=== PATIENT | male | born 1965 | race Caucasian/White ===

== ENCOUNTER → 2020-08-29 08:21 | Outpatient (BNVA) | payer OTHER, SELFPAY | PROVIDERS: PCP Internal Medicine; Visit Provider Internal Medicine | DX: I48.0 Paroxysmal atrial fibrillation (principal); I48.92 Unspecified atrial flutter; I10 Essential (primary) hypertension; Z79.899 Other long term (current) drug therapy | CPT/HCPCS: 93005 ==

== ENCOUNTER → 2021-09-20 09:32 | Outpatient (BNVA) | payer OTHER, SELFPAY | PROVIDERS: PCP Internal Medicine; Referring Provider Internal Medicine; Visit Provider Internal Medicine ==

== ENCOUNTER 2022-06-03 08:41 | Outpatient (REF) | payer OTHER, SELFPAY ==
--- NOTE | ~2022-06-03 | XR_ITS ---
EXAMINATION: XR HAND, RIGHT CLINICAL INFORMATION: Contusion and pain COMPARISON: None TECHNIQUE: PA, lateral, and oblique views of the right hand. FINDINGS: The bones and soft tissues are normal. No fracture. Alignment is anatomic. Joint spaces are maintained. No erosions or soft tissue calcifications. XR/XR hand RT min 3V IMPRESSION: Normal right hand.
== END 2022-06-03 08:42 | disposition home or self-care (01) ==
LOC: HO.HMGCX 08:41
PROVIDERS: PCP Internal Medicine; Visit Provider Internal Medicine
DX: S60.00XA Contusion of unspecified finger without damage to nail, initial encounter (principal); M79.641 Pain in right hand; X58.XXXA Exposure to other specified factors, initial encounter; Y93.9 Activity, unspecified; Y92.9 Unspecified place or not applicable; Y99.9 Unspecified external cause status
CPT/HCPCS: 73130

== ENCOUNTER → 2022-09-23 09:31 | Outpatient (BNVA) | payer OTHER, SELFPAY | PROVIDERS: PCP Internal Medicine; Referring Provider Internal Medicine; Visit Provider Internal Medicine | DX: I48.0 Paroxysmal atrial fibrillation (principal); Z79.899 Other long term (current) drug therapy | CPT/HCPCS: 93005 ==

== ENCOUNTER 2022-09-23 16:56 | Emergency (ER) | payer OTHER, SELFPAY ==
--- NOTE | ~2022-09-23 | CT_ITS ---
EXAMINATION: CT BRAIN AND CT CERVICAL SPINE WITHOUT CONTRAST. CLINICAL INFORMATION: COMPARISON: None TECHNIQUE: Axial 5 mm thin and reformatted 2 mm thin sagittal and coronal images of brain were obtained. Subsequently axial 3 mm thin and reformatted 2 mm thin sagittal and coronal images of cervical spine were obtained. DLP [id number] examination was performed using dose optimization technique as appropriate, variously including the following: Automated exposure control Adjustment of MA and/or KV according to patient size(this includes techniques or standardized protocols for targeted exams where dose is matched to indication/reason for exam; extremities or head. Use of iterative reconstruction techniques. FINDINGS: The exam is limited secondary to patient motion. Brain: There is no acute intra-axial, extra-axial bleed, masses or midline shift. There is no acute infarction in evolution. There is no edema. The palumbo to white matter differentiation is maintained normal. The lateral ventricles are symmetrical in size and configuration without enlargement. Bone windows reveal no calvarial abnormality. There is no scalp soft tissue abnormality. The paranasal sinuses are well-aerated and clear. Cervical spine: There is reversal of cervical lordosis. Vertebral heights and alignment is normal. There is loss of C5-C6 and C6-C7 disc heights with minimal ventral and posterior spondylosis is noted. The craniovertebral junction and C1-C2 alignment is normal. There is no visible acute fracture, dislocation or subluxation seen. The prevertebral soft tissues are normal. The central trachea and the bronchi widely patent. No abnormal size neck lymph nodes seen. Visualized salivary glands and thyroid lobes are symmetrical. The lung apices are clear except for 3 mm nodule right lung apex. CT/CT cervical spine wo IV con IMPRESSION: No acute intracranial process seen. Reversal of cervical lordosis likely cyst spasm. There are degenerative disc changes C5-C6 and C6-C7 disc levels with ventral and posterior spondylosis. No acute fracture or lytic process seen.
--- NOTE | ~2022-09-23 | XR_ITS ---
EXAMINATION: XR CHEST CLINICAL INFORMATION: Chest pain COMPARISON: 06/04/2016 TECHNIQUE: Frontal view of the chest was obtained. FINDINGS: No significant abnormality is noted involving the heart, lungs, mediastinum, bony thorax or soft tissues. XR/XR chest 1V IMPRESSION: Unremarkable examination.
[2022-09-23 17:05] VITALS: BP 153/75; BP 160/90; PULSE 72; PULSE 82; RESP 18; TEMP 36.7; O2SAT 95; O2SAT 98; BMI 37.0
--- NOTE | 2022-09-23 17:26 | ECG_ITS ---
Test Reason : CP Blood Pressure : / mmHG Vent. Rate : 076 BPM Atrial Rate : 076 BPM P-R Int : 178 ms QRS Dur : 116 ms QT Int : 404 ms P-R-T Axes : 080 096 074 degrees QTc Int : 454 ms Normal sinus rhythm Rightward axis Borderline ECG When compared with ECG of 05-JUN-2016 11:52, No significant change was found Referred By: Manju Mendoza Electronically Signed By:Rogerio Jj
[2022-09-23 18:03] LABS: MANUAL DIFF FLAG NO
[2022-09-23 18:09] LABS: Basophils Percent Auto 0.3 % (0-2); Eosinophils Absolute Auto 0.1 X10*3/uL (0.0-0.4); Eosinophils Percent Auto 1.4 % (0-4); Hematocrit 48.8 % (42.0-52.0); Hemoglobin 16.6 g/dl (14.0-18.0); Imm Gran Abs Auto 0.03 X10*3/uL (0.00-0.03); Imm Gran Pct Auto 0.4 % (0.0-0.4); Lymphocytes Absolute Auto 1.9 X10*3/uL (1.2-4.9); Mean Platelet Volume 9.2 fL (9.4-12.4); Monocytes Absolute Auto 0.7 X10*3/uL (0.1-1.2); Monocytes Percent Auto 9.3 % (2-11); Neutrophils Absolute Auto 4.3 x10*3/uL (2.0-8.3); Neutrophils Percent Auto 61.6 % (45-73); Platelet Count 197 X10*3/uL (160-400); Red Blood Count 5.19 X10*6/uL (4.60-5.80); Red Cell Distribution Width 12.7 % (11.0-16.0)
[2022-09-23 18:23] LABS: Ethanol 203 mg/dL
[2022-09-23 18:25] LABS: Anion Gap 16 (12-20); Blood Urea Nitrogen 11 mg/dL (9-16); Calcium 9.1 mg/dL (8.4-10.2); Carbon Dioxide 29 mmol/L (22-29); Chloride 101 mmol/L (96-108); Creatinine Clr Calc Pharmacy 121.3; Estimated Glomerular Filt Rate > 60; Glucose Random 104 mg/dL (60-115); Potassium 4.2 mmol/L (3.3-5.1); Sodium 142 mmol/L (135-145)
[2022-09-23 18:33] LABS: Troponin-I High Sensitivity < 3.5 ng/L (<3.5-35.0)
--- NOTE | 2022-09-23 19:04 | ED.SYNCOPE ---
HPI - Syncope General Chief Complaint: ETOH/Substance Use Stated Complaint: ETOH INTOX,CPD ON BOARD FOR PRECAUTION PER EMS Time Seen by Provider: 09/23/22 17:04 History of Present Illness HPI narrative: Patient is a 57-year-old male with a history of hypertension history of paroxysmal AFib history of being on flecainide for the AFib. Patient not on blood thinners. Compliant with his dull tires on. Also history of hypercholesterolemia. Patient claims he got off his overnight shift. Had a few drinks. Subsequently drove to a sandwich shop. At the same sharp patient slumped over. EMS was contacted. Question there was trauma. Patient was sent to the emergency department for further evaluation. Patient has no complaints. Denies any chest pain or diaphoresis. No fever no chills. Claims he is very tired from work. Related Data Previous Rx's Medication Instructions Recorded albuterol sulfate 90 mcg/actuation 2 puff inhalation Q6H PRN 10/17/21 aerosol inhaler bronchospasm #8.5 grams diltiazem HCl 360 mg capsule,24 360 mg PO DAILY #90 caps 10/17/21 hr,extended release (Tiadylt ER) lisinopril 10 mg tablet 10 mg PO DAILY #90 tabs 10/18/21 flecainide 100 mg tablet 50 mg PO BID 90 days #90 tabs 01/15/22 Allergies Allergy/AdvReac Type Severity Reaction Status Date / Time No Known Allergies Allergy Verified 09/23/22 09:48 [No Known Allergies*] Review of Systems Review of Systems: Positive EtOH positive possible syncopal episode Yes all other systems are reviewed and are negative PMFSH Past Medical History Attestation statement: The following information was validated with the patient. 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 Mother No problems noted. Social History Social History Housing: Apartment Alcohol intake: current Alcohol intake frequency: 0-2 drinks per day Alcohol type: beer Patient Tobacco Use Status: Current everyday Tobacco user Tobacco use type: Cigarette Cigarettes Per Day: 10 Years Smoked: since age 17 e-Cigarette/Vaping Use: Never Used Second Hand Smoke Exposure: No Advance Directives: No Advance Directives Information Provided: No service: No Current occupational status: employed Cognitive needs: No Hearing needs: No Vision needs: No Physical Exam Vital Signs: Vital Signs: Last Vital Signs Temp 98.0 F 09/23/22 17:05 Pulse 72 09/23/22 17:05 Resp 18 09/23/22 17:05 BP 153/75 H 09/23/22 17:05 Pulse Ox 98 09/23/22 17:05 O2 Del Method 09/23/22 17:05 Oxygen Flow Rate 2 09/23/22 17:05 BMI result Body Mass Index 37.0 Appearance: Alert. Oriented X3. No acute distress. Eyes: Pupils equal, round and reactive to light. ENT: Pharynx normal. Neck: Normal inspection. Neck supple. No lymph nodes noted. No crepitus CVS: Normal heart rate and rhythm. Pulses normal. Normal S1 and S2 Respiratory: No respiratory distress. Breath sounds normal. No Wheezing. No rales Abdomen: Soft and nontender. No rigidity. No distention. good BS x4 Skin: Skin warm and dry. Normal skin color. Normal skin turgor. Extremities: No lower extremity edema. Neurovascular intact to all extremities. No Lacerations. No Rash Neuro: Oriented X 3. No motor deficit. No sensory deficit. Moving all extermities. No slurred speech Medications Administered Discontinued Medications Generic Name Dose Route Start Last Admin Trade Name Freq PRN Reason Stop Dose Admin Ondansetron HCl 4 mg 09/23/22 18:51 09/23/22 18:53 Ondansetron Odt 4 Mg Tab.Rapdis TRANSLINGU 09/23/22 18:52 Not Given ONCE ONE Medical Decision Making Medical Decision Making MDM Narrative: patient well appearing no acute distress. Neurologically intact. Sugar was over 100 no evidence for hypoglycemia. I personally interpreted patient's EKG it showed a sinus rhythm heart rate is 75 PA QRS QT within normal limits there is no acute ST segment elevation noted. Patient neurologically intact. NIH stroke scale was 0. There is a question of trauma. A CT scan of the head and C-spine was done. I would personally reviewed the CT scan of the head there is no gross evidence of bleeding. Patient did admit to drinking alcohol. His alcohol level was 200. question of that is because of patient's episode of being out. Patient's troponin was negative. Electrolytes are otherwise unremarkable. Chest x-ray showed no pneumonia no pneumothorax. Patient's hemoglobin is baseline. No evidence for GI bleed. Discussed with patient the need for close follow-up. Need to stop drinking. Drinking and driving can be extremely dangerous. Is specially with very little sleep. 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 Offered detox but patient refused at this time. He is in stable condition with discharge home. Differential Diagnosis hypoglycemia, alcohol abuse, syncope, electrolyte disturbance, arrhythmia Admission/Observation Consideration of admission/observation: Escalation of care including admission/observation considered given the elevated alcohol likely the cause of patient's symptoms will not need to be admitted for further evaluation Lab Data MDM Lab Attestation statement: I reviewed the patient's lab results. 09/23/22 17:59 09/23/22 17:59 Labs: Lab Results 09/23/22 09/23/22 09/23/22 Range/Units 17:59 17:59 17:59 WBC 7.0 (4.8-10.8) X10*3/uL RBC 5.19 (4.60-5.80) X10*6/uL Hgb 16.6 (14.0-18.0) g/dl Hct 48.8 (42.0-52.0) % MCV 94.0 (80.0-98.0) fL MCH 32.0 (27.0-33.0) pg MCHC 34.0 (31.0-36.0) g/dl RDW 12.7 (11.0-16.0) % Plt Count 197 (160-400) X10*3/uL MPV 9.2 L (9.4-12.4) fL Immature Gran % (Auto) 0.4 (0.0-0.4) % Neut % (Auto) 61.6 (45-73) % Lymph % (Auto) 27.0 (20-40) % [place] % (Auto) 9.3 (2-11) % Eos % (Auto) 1.4 (0-4) % Baso % (Auto) 0.3 (0-2) % Lymph # (Auto) 1.9 (1.2-4.9) X10*3/uL [place] # (Auto) 0.7 (0.1-1.2) X10*3/uL Eos # (Auto) 0.1 (0.0-0.4) X10*3/uL Baso # (Auto) 0.0 (0.0-0.2) X10*3/uL Abs Immat Gran (auto) 0.03 (0.00-0.03) X10*3/uL Absolute Neuts (auto) 4.3 (2.0-8.3) x10*3/uL Absolute Nucleated RBC 0.000 (0.0-0.012) X10*3/uL Nucleated RBC % (auto) 0.0 (0.0-0.2) /100WBC Sodium 142 (135-145) mmol/L Potassium 4.2 (3.3-5.1) mmol/L Chloride 101 (96-108) mmol/L Carbon Dioxide 29 (22-29) mmol/L Anion Gap 16 (12-20) BUN 11 (9-16) mg/dL Creatinine 0.85 (0.5-1.4) mg/dL Estim Creat Clear Calc 121.3 Estimated GFR > 60 Random Glucose 104 (60-115) mg/dL Calcium 9.1 (8.4-10.2) mg/dL Troponin I High Sens < 3.5 (<3.5-35.0) ng/L Ethyl Alcohol mg/dL 09/23/22 Range/Units 17:59 WBC (4.8-10.8) X10*3/uL RBC (4.60-5.80) X10*6/uL Hgb (14.0-18.0) g/dl Hct (42.0-52.0) % MCV (80.0-98.0) fL MCH (27.0-33.0) pg MCHC (31.0-36.0) g/dl RDW (11.0-16.0) % Plt Count (160-400) X10*3/uL MPV (9.4-12.4) fL Immature Gran % (Auto) (0.0-0.4) % Neut % (Auto) (45-73) % Lymph % (Auto) (20-40) % [place] % (Auto) (2-11) % Eos % (Auto) (0-4) % Baso % (Auto) (0-2) % Lymph # (Auto) (1.2-4.9) X10*3/uL [place] # (Auto) (0.1-1.2) X10*3/uL Eos # (Auto) (0.0-0.4) X10*3/uL Baso # (Auto) (0.0-0.2) X10*3/uL Abs Immat Gran (auto) (0.00-0.03) X10*3/uL Absolute Neuts (auto) (2.0-8.3) x10*3/uL Absolute Nucleated RBC (0.0-0.012) X10*3/uL Nucleated RBC % (auto) (0.0-0.2) /100WBC Sodium (135-145) mmol/L Potassium (3.3-5.1) mmol/L Chloride (96-108) mmol/L Carbon Dioxide (22-29) mmol/L Anion Gap (12-20) BUN (9-16) mg/dL Creatinine (0.5-1.4) mg/dL Estim Creat Clear Calc Estimated GFR Random Glucose (60-115) mg/dL Calcium (8.4-10.2) mg/dL Troponin I High Sens (<3.5-35.0) ng/L Ethyl Alcohol 203 mg/dL Independent Interpretation I performed an independent interpretation of an: EKG Interpretation: sinus rhythm heart rate is 75 PA QRS QT within normal limits there is no acute ST segment elevation. Radiology Impression Discussion of test interpretation with radiology: I have reviewed the radiologist's reading. Independent Historian Clinical information obtained from an independent historian. History obtained from or confirmed by: Spouse and Parent External Record Review External record reviewed: Inpatient record Chronic Conditions Patient?s care impacted by: Hypertension Social Determinants Patient?s care significantly limited by Social Determinants of Health including: Alcoholism and drug addiction in family Discharge Plan Discharge Clinical Impression: Alcohol intoxication, Syncope Patient Disposition: Home, Self-Care Instructions: Syncope (ED), Abuse of Alcohol (ED), Alcohol Intoxication (ED) Additional Instructions: Please do not drink and drive. Drinking and driving is dangerous for you and for others. Prescriptions: No Action lisinopril 10 mg tablet 10 mg PO DAILY Qty: 90 8RF flecainide 100 mg tablet 50 mg PO BID 90 Days Qty: 90 3RF albuterol sulfate 90 mcg/actuation HFA aerosol inhaler 2 puff inhalation Q6H PRN (Reason: bronchospasm) Qty: 8.5 8RF diltiazem HCl [Tiadylt ER] 360 mg capsule,extended release 24 hr 360 mg PO DAILY Qty: 90 3RF Referrals: Physician,Unknown J [Primary Care Provider] - ( Please follow-up with your doctor on an outpatient basis.) Rogerio Jj MD [Physician] - Interventions: [place]-Suicide Risk Severity Scale Last Done: 09/23/22 18:02
--- NOTE | 2022-09-23 19:05 | MHC.RECOVSUP ---
? Reason for consult Recovery Support o Current location: ED18 o Identified substance use concern: Alcohol - Support ? Intervention: o Community resources provided o Harm reduction discussion ? Plan: o Patient awaiting crisis evaluation o Patient to follow up with [facility] after discharge ? Additional information: met with Patient and we talk recovery and where to go if he changes his mind and want help..
[2022-09-23 19:42] VITALS: BP 112/56; PULSE 84; RESP 18; TEMP 36.6; O2SAT 94
== END 2022-09-23 19:57 | disposition home or self-care (01) ==
PROVIDERS: Emergency Provider Emergency Medicine Emergency Medical Services
DX: R55 Syncope and collapse (principal); R51.9 Headache, unspecified; M54.2 Cervicalgia; R07.89 Other chest pain; F10.129 Alcohol abuse with intoxication, unspecified; Y90.7 Blood alcohol level of 200-239 mg/100 ml; Z79.899 Other long term (current) drug therapy
CPT/HCPCS: 36415; 70450; 71045; 72125; 80048; 82077; 84484; 85025; 93005; 99284

== ENCOUNTER 2023-03-17 09:52 | Outpatient (AMB) | payer OTHER, SELFPAY ==
--- NOTE | 2023-03-17 10:40 | AM.OFFVISNUR ---
Intake Intake Visit Reasons: EKG Intake Note: Pt here for f/up EKG. H/O afib. Feels good. No complaints. Taking all meds as directed. Field Identification Specialist Required: No Accompanied by: Self / Same As Patient Allergies No Known Allergies [No Known Allergies*] Allergy (Verified 09/23/22 09:48) Medication List - Last Reconciled 03/17/23 by Priscilla Tenorio, RN albuterol sulfate 90 mcg/actuation 2 puffs inhalation Q6H PRN diltiazem HCl ER (Tiadylt ER) 360 mg PO DAILY flecainide 50 mg (1/2 x 100 mg) PO BID 90 days lisinopril 10 mg PO DAILY Followed by:: Dr. Salgado Nursing Note EKG completed. EKG auto-reading sinus rhythm at 61/bpm. EKG on Dr. Asif's desk/uploaded for review and signature. Office Procedures EKG 14007-[id number], Complete Coding Level of Care Code Est Pt Level 1 (36892) Diagnoses CPT Codes EKG - CPT: 76097-Unirmoxstaelhlsec, Complete ([id number]) Time Spent (min) 15
== END 2023-03-17 10:40 | disposition home or self-care (01) ==
PROVIDERS: Visit Provider Internal Medicine
DX: I48.92 Unspecified atrial flutter (principal)
CPT/HCPCS: 93010

== ENCOUNTER → 2023-03-17 09:52 | Outpatient (BNVA) | payer OTHER, SELFPAY | PROVIDERS: Visit Provider Internal Medicine | DX: I48.91 Unspecified atrial fibrillation (principal) | CPT/HCPCS: 93005 ==

== ENCOUNTER 2023-05-01 11:50 | Outpatient (AMB) | payer OTHER, SELFPAY ==
--- NOTE | 2023-05-01 12:14 | AM.OFFWIN_ITS ---
Intake Vital Signs 05/01/23 12:15 Weight 278 lb BP 106/58 L Blood Pressure Location Rt brachial Position Sitting Pulse 72 Pulse Source Pulse Oximeter Pulse Oximetry (%) 97 Oxygen Delivery Method Room Air Intake Visit Reasons: EP, Left ear pain Intake Note: Patient here for left ear pain/possible ear infection which has been bothersome for about 1-2 weeks. Patient Tobacco Use Status: Current everyday Tobacco user Allergies No Known Allergies [No Known Allergies*] Allergy (Verified 05/01/23 12:15) Do you need a note to return to daycare/school/sports/work: No HPI HPI Comments History of Present Illness Details 57-year-old male presents with ear popping sensation in the left ear. Patient by might have an ear infection. 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 Mother No problems noted. Social History Housing: Apartment Alcohol intake: current Alcohol intake frequency: 0-2 drinks per day Alcohol type: beer Patient Tobacco Use Status: Current everyday Tobacco user Tobacco use type: Cigarette Cigarettes Per Day: 10 Years Smoked: since age 17 e-Cigarette/Vaping Use: Never Used Second Hand Smoke Exposure: No service: No Current occupational status: employed Cognitive needs: No Hearing needs: No Vision needs: No Review of Systems Const All systems reviewed & are unremarkable except as noted in HPI and below ENT Details: ear popping and fullness Physical Exam Vital Signs: Last Vital Signs Pulse 72 05/01/23 12:15 BP 106/58 L 05/01/23 12:15 Pulse Ox 97 05/01/23 12:15 Oxygen Delivery Method Room Air 05/01/23 12:15 HEENT Other: bilateral your effusions Assessment & Plan Assessment & Plan (1) Acute middle ear effusion: Code(s): H65.199 - Other acute nonsuppurative otitis media, unspecified ear Plan exam consistent with bilateral your effusions. Recommend antihistamine treatment. No evidence of infection. Discharge instructions, follow up and treatment are discussed with patient in my usual fashion. Alternatives in treatment are also discussed. The patient will return for worsening symptoms or as needed. Advised that any labs/imaging ordered will be followed up on and contact made if further treatment needed. Counseled that patient's condition may require further evaluation and/or treatment. Symptoms of concern for worsening disorder discussed in detail in my customary manner. Patient does verbalize understanding of the plan, there are no apparent barriers to communication. The patient is given the opportunity to ask questions and have them answered to his/her satisfaction Coding Level of Care Code Est Pt Level 2 (65054) Diagnoses Acute middle ear effusion H65.199
[2023-05-01 12:15] VITALS: BP 106/58; PULSE 72; O2SAT 97
== END 2023-05-01 12:48 | disposition home or self-care (01) ==
PROVIDERS: PCP Internal Medicine; Visit Provider Physician Assistant
DX: H65.192 Other acute nonsuppurative otitis media, left ear (principal)
CPT/HCPCS: 99212

== ENCOUNTER 2023-07-01 08:36 | Outpatient (AMB) | payer OTHER, SELFPAY ==
--- NOTE | 2023-07-01 09:04 | MHC.OFFWIV ---
Intake Vital Signs 07/01/23 09:05 Height 5 ft 10 in Weight 255 lb 4 oz BMI 36.6 BP 120/58 L Blood Pressure Location Rt brachial Position Sitting Pulse 72 Pulse Source Pulse Oximeter Temp 98.4 F Temp Source Oral Pulse Oximetry (%) 82 L Oxygen Delivery Method Room Air Intake Visit Reasons: EP, cough, congestion (masked) Intake Note: pt is here for congestion cough wheezing and body aches for the past 5 days Patient Tobacco Use Status: Current everyday Tobacco user Allergies No Known Allergies [No Known Allergies*] Allergy (Verified 07/01/23 09:36) Medication List - Last Reconciled 07/01/23 by Emil Fajardo MD albuterol sulfate 90 mcg/actuation 2 puffs inhalation Q6H PRN diltiazem HCl ER (Tiadylt ER) 360 mg PO DAILY flecainide 50 mg (1/2 x 100 mg) PO BID 90 days lisinopril 10 mg PO DAILY Do you need a note to return to daycare/school/sports/work: No HPI EP, cough, congestion (masked) HPI Details 58-year-old male presents to the office for a sick visit. For the past 2 3 days, patient is complaining of wheezing, running nose and headaches. His has the similar illness. Has not tested for COVID. Low-grade fevers. Smokes a pack a day. 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 Mother No problems noted. Social History Housing: Apartment Alcohol intake: current Alcohol intake frequency: 0-2 drinks per day Alcohol type: beer Patient Tobacco Use Status: Current everyday Tobacco user Tobacco use type: Cigarette Cigarettes Per Day: 10 Years Smoked: since age 17 e-Cigarette/Vaping Use: Never Used Second Hand Smoke Exposure: No service: No Current occupational status: employed Cognitive needs: No Hearing needs: No Vision needs: No Physical Exam Vital Signs: Last Vital Signs Temp 98.4 F 07/01/23 09:05 Pulse 72 07/01/23 09:05 BP 120/58 L 07/01/23 09:05 Pulse Ox 82 L 07/01/23 09:05 Oxygen Delivery Method Room Air 07/01/23 09:05 BMI result Body Mass Index 36.6 Const General: cooperative and healthy appearing Nutritional Appearance: well nourished Orientation/consciousness: patient oriented x3 Limitations: no limitations HEENT Head: Yes normal to inspection Eyes General: appearance normal, both eyes and all related structures Neck Neck: Yes normal visual inspection Chest Chest palpation & inspection: normal palpation of entire chest wall Resp Other: Bilateral wheezing. Effort & Inspection: normal respiratory effort Neuro General: patient oriented x3 Assessment & Plan Assessment & Plan (1) Acute bronchitis: Code(s): J20.9 - Acute bronchitis, unspecified Plan: Chest x-ray images were reviewed by me. No infiltrate seen. Patient tested positive for COVID on the rapid antigen testing. Paxlovid treatment initiated. Prednisone and albuterol added to the regimen. Note for work given. Orders: Orders AMB Nebulizer Treatment Today J20.9 - Acute bronchitis, unspecified XR chest 2V Today R05.9 - Cough, unspecified SARS-CoV2/FLU/RSV Today R09.89 - Other specified symptoms and signs involving the circulatory and respiratory systems BinaxNOW Covid-19 Ag Today J06.9 - Acute upper respiratory infection, unspecified Medications: New prednisone 60 mg (3 x 20 mg) PO DAILY 9 tabs 0RF albuterol sulfate 2.5 mg (3 mL) inhalation ONCE 3 mL 0RF J20.9 - Acute bronchitis, unspecified nirmatrelvir-ritonavir 300 mg (150 mg x 2)-100 mg (Paxlovid) take TWO 150 mg tablets of nirmatrelvir with ONE 100 mg tablet of ritonavir twice daily for 5 days PO 30 tabs 0RF Refilled albuterol sulfate 90 mcg/actuation 2 puffs inhalation Q6H PRN 8.5 grams 8RF bronchospasm Coding Level of Care Code Est Pt Level 4 (80123) Diagnoses Acute bronchitis J20.9
[2023-07-01 09:05] VITALS: BP 120/58; PULSE 72; TEMP 36.9; O2SAT 82; BMI 36.6
== END 2023-07-01 10:53 | disposition home or self-care (01) ==
PROVIDERS: PCP Internal Medicine; Visit Provider Internal Medicine
DX: J20.9 Acute bronchitis, unspecified (principal)
CPT/HCPCS: 99214

== ENCOUNTER 2023-07-01 09:48 | Outpatient (REF) | payer OTHER, SELFPAY ==
[2023-07-01 12:52] LABS: Influenza A PCR NEGATIVE (Negative); Influenza B PCR NEGATIVE (Negative); Resp Syncy Virus RNA Qual PCR NEGATIVE (Negative); SARS COV2 PCR INHOUSE POSITIVE (Negative)
== END 2023-07-01 09:49 | disposition home or self-care (01) ==
LOC: HO.LNP 09:48
PROVIDERS: Visit Provider Internal Medicine
DX: Z11.52 Encounter for screening for COVID-19 (principal); Z20.822 Contact with and (suspected) exposure to COVID-19; R09.89 Other specified symptoms and signs involving the circulatory and respiratory systems
CPT/HCPCS: 0241U

== ENCOUNTER 2023-07-01 09:50 | Outpatient (REF) | payer OTHER, SELFPAY ==
--- NOTE | ~2023-07-01 | XR_ITS ---
EXAMINATION: XR CHEST CLINICAL INFORMATION: Cough, unspecified COMPARISON: Chest 09/23/2022, 09/28/2010 TECHNIQUE: 2 views of the chest were obtained. FINDINGS: The lungs are well expanded. Mild opacity in the lateral right lung base may represent atelectasis and/or less likely pneumonia. No significant abnormality is noted involving the heart, mediastinum, bony thorax or soft tissues. XR/XR chest 2V IMPRESSION: Mild opacity in the lateral right lung base may represent atelectasis and/or less likely pneumonia.
[2023-07-01 10:19] LABS: Binax Internal Control QC Valid; Binax Now Covid-19 Ag Positive (Negative); Binax Performed by: HO.BONILM
== END 2023-07-01 09:51 | disposition home or self-care (01) ==
LOC: HO.HMGCX 09:50
PROVIDERS: PCP Internal Medicine; Visit Provider Internal Medicine
DX: Z11.52 Encounter for screening for COVID-19 (principal); R05.9 Cough, unspecified; J06.9 Acute upper respiratory infection, unspecified
CPT/HCPCS: 71046; 87811

== ENCOUNTER 2023-09-23 10:00 | Outpatient (AMB) | payer OTHER, SELFPAY ==
--- NOTE | 2023-09-23 10:04 | A.OFFVIS_ITS ---
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 In the past, underwent cardioversion for the same. Maintained on a small dose of flecainide and diltiazem. Has not had any recurrences. Was on Xarelto in the past but then developed melena and then it was stopped. Due to low thromboembolic risk, not on any anticoagulation and also he has had no recurrence all. Overall, he states he is feeling fine. No cardiac symptoms. Compliant with medications according to him. 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 Mother No problems noted. Social History Housing: Apartment Alcohol intake: current Alcohol intake frequency: 0-2 drinks per day Alcohol type: beer Patient Tobacco Use Status: Current everyday Tobacco user Tobacco use type: Cigarette Cigarettes Per Day: 10 Years Smoked: since age 17 e-Cigarette/Vaping Use: Never Used Second Hand Smoke Exposure: No service: No Current occupational status: employed Cognitive needs: No Hearing needs: No Vision needs: No Review of Systems Const Denies weakness ENT Denies dizziness Card Denies chest pain, Denies chest pain with activity, Denies syncope, Denies rapid heart rate, Denies pedal edema, Denies edema, Denies leg edema, Denies lightheadedness, Denies palpitations, Denies dyspnea, Denies dyspnea on exertion and Denies orthopnea Resp Denies cough, Denies dyspnea and Denies dyspnea on exertion GI Denies hematochezia and Denies change in stool character Musc Denies abnormal gait, Denies muscle cramps, Denies muscle weakness, Denies numbness, Denies radiating pain into limb and Denies tingling Neuro Denies abnormal gait, Denies dizziness, Denies syncope, Denies numbness, Denies tingling and Denies weakness Endo Denies palpitations Physical Exam Vital Signs: Last Vital Signs Pulse 74 09/23/23 10:05 BP 132/60 09/23/23 10:05 BMI result Body Mass Index 37.0 Const General: comfortable and no acute distress Orientation/consciousness: patient oriented x3 HEENT Other: Unremarkable Head: Yes normal to inspection Neck Neck: Yes normal visual inspection Chest Chest palpation & inspection: normal inspection of the chest Resp Auscultation: wheezes and diminished lung sounds Cardio Palpation: normal PMI Heart sounds: S1 normal heart sound present, S2 normal heart sound present, no gallops, no murmurs and no rubs GI Palpation (GI): Soft to palpation Back/Spine/Pelvis Other: unremarkable Skin General skin exam: no rashes or lesions noted Neuro General: patient oriented x3 Extrem General: Yes normal to inspection Psych Mental Status: mental status grossly normal Office Procedures EKG Details: EKG with sinus rhythm at 76/Min; rightward axis; no significant ST-T changes; [place] [id number], Complete Assessment & Plan Assessment & Plan (1) PAF (paroxysmal atrial fibrillation): Code(s): I48.0 - Paroxysmal atrial fibrillation (2) Paroxysmal atrial flutter: Code(s): I48.92 - Unspecified atrial flutter (3) nursing home current use of antiarrhythmic drug: Code(s): Z79.899 - Other long term care phlebotomist (current) drug therapy (4) Essential hypertension: Code(s): I10 - Essential (primary) hypertension (5) Smoking: Code(s): F17.200 - Nicotine dependence, unspecified, uncomplicated Plan Continue flecainide/diltiazem without changes. Due to low thromboembolic risk as well as no recurrent episodes, not on anticoagulation. Coronary CT in the past without any significant CAD. Last echocardiogram 2017-LVEF 60-65%; no wall motion abnormalities and otherwise unremarkable. With regard hypertension, continue lisinopril. On exam, he does have wheezing likely related to smoking. Again discussed about smoking cessation. About alcohol excess. Discussed. To come for EKG in 6 months. 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
[2023-09-23 10:05] VITALS: BP 132/60; PULSE 74; BMI 37.0
== END 2023-09-23 10:35 | disposition home or self-care (01) ==
PROVIDERS: Visit Provider Internal Medicine
DX: I48.0 Paroxysmal atrial fibrillation (principal); I48.92 Unspecified atrial flutter; Z79.899 Other long term (current) drug therapy; I10 Essential (primary) hypertension; F17.200 Nicotine dependence, unspecified, uncomplicated
CPT/HCPCS: 93010; 99214

== ENCOUNTER → 2023-09-23 10:00 | Outpatient (BNVA) | payer OTHER, SELFPAY | PROVIDERS: Visit Provider Internal Medicine | DX: I48.0 Paroxysmal atrial fibrillation (principal); I48.92 Unspecified atrial flutter; I10 Essential (primary) hypertension; F17.210 Nicotine dependence, cigarettes, uncomplicated; Z79.899 Other long term (current) drug therapy | CPT/HCPCS: 93005 ==

== ENCOUNTER → 2024-02-25 08:56 | Outpatient (BNVA) | payer SELFPAY | PROVIDERS: PCP Internal Medicine; Visit Provider Internal Medicine ==

== ENCOUNTER 2024-03-19 10:23 | Outpatient (AMB) | payer OTHER, SELFPAY ==
[2024-03-19 10:25] VITALS: BP 124/70; PULSE 65; O2SAT 95; BMI 37.4
--- NOTE | 2024-03-19 10:25 | A.OFFPC_ITS ---
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 Accompanied by: Self / Same As Patient Allergies No Known Allergies [No Known Allergies*] Allergy (Verified 03/19/24 10:25) Medication List - Last Reconciled 03/19/24 by Atul Ferreira MD albuterol sulfate 90 mcg/actuation 2 puffs inhalation Q6H PRN diltiazem HCl ER (Tiadylt ER) 360 mg PO DAILY flecainide 50 mg (1/2 x 100 mg) PO BID 90 days lisinopril 10 mg PO DAILY Tobacco use date assessed: 03/19/24 Dental Screening Dental Screen Date: 03/19/24 Did you have a dental visit in the last 12 months?: No Did you have a dental problem in the last 6 months where you did not have access to dental care?: No Was dental information given to patient?: Patient has dentist HPI Rectal bleeding HPI Details bright red rectal bleeding for a day; some perianal itching PFSH Medical History 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 Mother No problems noted. Social History Housing: Apartment Alcohol intake: current Alcohol intake frequency: 0-2 drinks per day Alcohol type: beer Patient Tobacco Use Status: Current everyday Tobacco user Tobacco use type: Cigarette Cigarettes Per Day: 10 Years Smoked: since age 17 e-Cigarette/Vaping Use: Never Used Second Hand Smoke Exposure: No service: No Current occupational status: employed Cognitive needs: No Hearing needs: No Vision needs: No Questionnaire PHQ-9 Over the last 2 weeks, how often have you been bothered by any of the following problems? 1. Little interest or pleasure in doing things: several days 2. Feeling down, depressed, or hopeless: nearly every day 3. Trouble falling or staying asleep, or sleeping too much: more than half the days 4. Feeling tired or having little energy: more than half the days 5. Poor appetite or overeating: not at all 6. Feeling bad about yourself - or that you are a failure or have let yourself or your family down: nearly every day 7. Trouble concentrating on things, such as reading the newspaper or watching television: not at all 8. Moving or speaking so slowly that other people could have noticed. Or the opposite - being so fidgety or restless that you have been moving around a lot more than usual: not at all 9. Thoughts that you would be better off or of hurting yourself in some way: not at all Total score: 11 Source: Developed by Drs. Thor Rivera, Winsome Moss, Chad French and colleagues, with an educational cyndi from [employer] Thrive Questionnaire Date Thrive assessed: 03/19/24 I am a: Patient What is your living situation today?: I have a steady place to live Within the past 12 months, did the food you bought not last and you didn't have the money to get more?: Never true Within the past 12 months, did you worry whether your food would run out before you got money to buy more?: Never true Do you have trouble paying for medicines?: No Do you have trouble getting transportation to medical appointments?: No Do you have trouble paying your heating and electricity bill?: No Do you have trouble taking care of your child, family member or friend?: No Do you have trouble with day-to-day activities such as bathing, preparing meals, shopping, managing finances, etc.?: No Are you currently unemployed and looking for a job?: No Are you interested in more education?: No Please select the resources that you would like help with: None THRIVE Score: 0 AUDIT C Alcohol Use Questionnaire (AUDIT-C) 1. How often do you have a drink containing alcohol?: 2-3 times a week 2. How many drinks containing alcohol do you have on a typical day when you are drinking?: 3 or 4 3. How often do you have six or more drinks on one occasion?: Never Total Score: 4 Score Reviewed/Action Taken: Yes ANUSHKA-7 AMB Questionnaire ANUSHKA-7 Date ANUSHKA - 7 assessed: 03/19/24 Feeling nervous, anxious, or on edge: 0 = Not at all Not being able to stop or control worryin = Not at all Worrying too much about different things: 0 = Not at all Trouble relaxin = Not at all Being so restless that it is hard to sit still: 0 = Not at all Becoming easily annoyed or irritable: 0 = Not at all Feeling afraid as if something awful might happen: 0 = Not at all Total ANUSHKA-7 score (0-4 normal; 5-9 mild; 10-14 moderate; 15-21 severe): 0 Source: Developed by Drs. Thor Rivera, Winsome Moss, Chad French and colleagues, with an educational cyndi from [employer]). Review of Systems Const Denies chills, Denies headache(s) and Denies weight loss ENT Denies headache(s) Card Denies chest pain, Denies syncope, Denies irregular heart rhythm and Denies dyspnea Resp Denies chest congestion, Denies cough and Denies dyspnea GI Denies abdominal pain, Denies change in stool character, Denies nausea and Denies vomiting Musc Denies deformity and Denies joint swelling Neuro Denies syncope and Denies headache(s) Physical exam (Primary Care) Vital Signs: Last Vital Signs Pulse 65 03/19/24 10:25 BP 124/70 03/19/24 10:25 Pulse Ox 95 03/19/24 10:25 Oxygen Delivery Method Room Air 03/19/24 10:25 BMI result Body Mass Index 37.4 Tobacco/Smoking Status: Tobacco use Status Tobacco use date assessed 03/19/24 03/19/24 10:26 Patient Tobacco Use Status Current everyday Tobacco 03/19/24 10:26 Tobacco use type Cigarette 03/19/24 10:26 e-Cigarette/Vaping Use Never Used 03/19/24 10:26 PHQ-9: PHQ-9 Score PHQ-9: Total score 11 03/19/24 10:47 Thrive Assessment: Date of Thrive Assessment Date Thrive assessed 03/19/24 03/19/24 10:26 Const General: cooperative, comfortable, no acute distress and alert Neck Neck: Yes no lymphadenopathy Thyroid: Thyroid normal Resp Effort & Inspection: normal respiratory effort Auscultation: clear to auscultation bilaterally Percussion: percussion normal Cardio Jugular venous distension: no JVD Palpation: normal PMI Rate: regular rate Rhythm: regular rhythm Heart sounds: S1 normal heart sound present and S2 normal heart sound present GI Inspection: Yes normal to inspection Palpation (GI): No hepatosplenomegaly present Skin General skin exam: no rashes or lesions noted Extrem General: Yes no clubbing, cyanosis or edema Assessment and Plan Assessment & Plan (1) Rectal bleeding: Code(s): K62.5 - Hemorrhage of anus and rectum Plan: ref surgery Orders: Referrals General Surgery Referral K62.5 - Hemorrhage of anus and rectum Medications: Refilled albuterol sulfate 90 mcg/actuation 2 puffs inhalation Q6H PRN 8.5 grams 8RF bronchospasm Coding Level of Care Code Est Pt Level 3 (90793) Diagnoses Rectal bleeding K62.5 Additional Codes PHQ-9 - 91356 - PHQ-9 Billing: ([id number])
== END 2024-03-19 10:48 | disposition home or self-care (01) ==
PROVIDERS: PCP Internal Medicine; Visit Provider Internal Medicine
DX: K62.5 Hemorrhage of anus and rectum (principal)
CPT/HCPCS: 99213

== ENCOUNTER 2024-04-05 09:02 | Outpatient (AMB) | payer OTHER, SELFPAY ==
--- NOTE | 2024-04-05 09:31 | MHC.OFFWIV ---
Intake Vital Signs 04/05/24 09:32 Height 5 ft 10 in Weight 274 lb BMI 39.3 BP 122/70 Blood Pressure Location Lt brachial Position Sitting Pulse 64 Pulse Source Pulse Oximeter Pulse Oximetry (%) 90 L Oxygen Delivery Method Room Air Intake Visit Reasons: Swollen Feet Intake Note: Patient here for bilat feet swelling that has been present for 2 weeks, pt mentioned he has pain in the back on the calve Patient Tobacco Use Status: Current everyday Tobacco user Allergies No Known Allergies [No Known Allergies*] Allergy (Verified 04/05/24 09:33) Do you need a note to return to daycare/school/sports/work: No HPI HPI Comments History of Present Illness Details Patient is a 58-year-old male complaining of swelling of both of his legs, the right side is worse than the left. He is also stating he has calf pain on the right side. He states he just took a 9 hour flight to and from [facility] and this is when his symptoms started. He States he is on Flecinaide but is not on a blood thinner for his afib. He states the pain in his leg is worse when he flexes his knee. He denies any shortness of breath or trouble breathing. He does state he has been a lifelong smoker but does not have a formal diagnosis of COPD. He has not done anything to try to make it better. He does not think he has ever had an ultrasound of his heart but does not think he has any heart failure diagnosed. [facility] Medical History Essential hypertension [facility] current use of antiarrhythmic drug PAF (paroxysmal atrial fibrillation) Paroxysmal atrial flutter Surgical History History of cardioversion (~2015) History of colonoscopy (~09/26/15) Family History Father No problems noted. Mother No problems noted. Social History Housing: Apartment Alcohol intake: current Alcohol intake frequency: 0-2 drinks per day Alcohol type: beer Patient Tobacco Use Status: Current everyday Tobacco user Tobacco use type: Cigarette Cigarettes Per Day: 10 Years Smoked: since age 17 e-Cigarette/Vaping Use: Never Used Second Hand Smoke Exposure: No service: No Current occupational status: employed Cognitive needs: No Hearing needs: No Vision needs: No Review of Systems Const All systems reviewed & are unremarkable except as noted in HPI and below Physical Exam Vital Signs: Last Vital Signs Pulse 64 04/05/24 09:32 BP 122/70 04/05/24 09:32 Pulse Ox 90 L 04/05/24 09:32 Oxygen Delivery Method Room Air 04/05/24 09:32 BMI result Body Mass Index 39.3 Const General: cooperative, healthy appearing, comfortable and no acute distress Orientation/consciousness: patient oriented x3 Limitations: no limitations HEENT Head: Yes normal to inspection Resp Effort & Inspection: normal respiratory effort and able to speak in complete sentences Neuro General: patient oriented x3 Extrem Right lower extremity: lower leg Details: tenderness Location: of the posterior calf and pitting edema Details: 2+; no erythema, no abrasions, no lacerations, no ecchymosis, no deformity and no unusual warmth Left lower extremity: lower leg Details: pitting edema Details: 1+; no erythema, no tenderness, no abrasions, no lacerations, no ecchymosis and no unusual warmth Assessment & Plan Assessment & Plan (1) Pain and swelling of left lower leg: Code(s): M79.662 - Pain in left lower leg; M79.89 - Other specified soft tissue disorders Plan: We will get lower extremity bilateral venous ultrasound to rule out DVT, vital signs are stable however oxygen saturation was 90%, upon recheck was 92%. Ultrasound of lower extremities was negative for DVT, however it was positive for Patrick's cyst behind the right knee. We called the patient to let him know how to treat the Patrick's cyst. I sent a message to patient's PCP for further workup for his lower extremity pitting edema. (2) Pain and swelling of right lower leg: Code(s): M79.661 - Pain in right lower leg; M79.89 - Other specified soft tissue disorders Plan: See above Plan See above Orders: Orders US venous duplex LE BI Today M79.661 - Pain in right lower leg, M79.662 - Pain in left lower leg, M79.89 - Other specified soft tissue disorders Coding Level of Care Code Est Pt Level 4 (34505) Diagnoses Pain and swelling of left lower leg M79.662; M79.89 Pain and swelling of right lower leg M79.661; M79.89
[2024-04-05 09:32] VITALS: BP 122/70; PULSE 64; O2SAT 90; BMI 39.3
== END 2024-04-05 11:26 | disposition home or self-care (01) ==
PROVIDERS: PCP Internal Medicine; Visit Provider Physician Assistant
DX: M79.662 Pain in left lower leg (principal); M79.89 Other specified soft tissue disorders; M79.661 Pain in right lower leg
CPT/HCPCS: 99214

== ENCOUNTER 2024-04-05 10:58 | Outpatient (REF) | payer OTHER, SELFPAY ==
--- NOTE | ~2024-04-05 | US_ITS ---
EXAMINATION: US VENOUS ULTRASOUND WITH DOPPLER LOWER EXTREMITY, BILATERAL CLINICAL INFORMATION: Bilateral lower leg pain. COMPARISON: None available. TECHNIQUE: Ultrasound of the deep veins is performed from the hip to the calf with compression sonography and color and pulse Doppler assessment. Spectral analysis with color-flow imaging is performed. FINDINGS: RIGHT: There is normal venous compression and respiratory variation and augmented flow. The visualized common femoral vein, superficial femoral vein, profunda femoral vein, popliteal vein, and the trifurcation region shows no evidence of deep venous thrombosis. Fluid collection in the right popliteal fossa measures 6.2 x 1.8 x 1.7 cm. No internal color Doppler flow. Right inguinal lymph node measures 3.7 x 1.0 x 3.3 cm. LEFT: There is normal venous compression and respiratory variation and augmented flow. The visualized common femoral vein, superficial femoral vein, profunda femoral vein, popliteal vein, and the trifurcation region shows no evidence of deep venous thrombosis. If the patient's symptoms persist, followup ultrasound in 5 days 7 days might be of value to exclude proximal propagation from a non-visualized calf vein. US/US venous duplex LE BI IMPRESSION: No DVT demonstrated in bilateral lower extremities. Enlarged right inguinal lymph node measuring 2.7 x 1.0 x 3.3 cm. Right popliteal fossa fluid collection measures 6.2 x 1.8 x 1.7 cm.
== END 2024-04-05 10:59 | disposition home or self-care (01) ==
LOC: HO.HMGCX 10:58
PROVIDERS: PCP Internal Medicine; Visit Provider Physician Assistant
DX: M79.662 Pain in left lower leg (principal); M79.661 Pain in right lower leg; M79.89 Other specified soft tissue disorders
CPT/HCPCS: 93970

== ENCOUNTER 2024-04-06 12:55 | Outpatient (AMB) | payer OTHER, SELFPAY ==
[2024-04-06 12:56] VITALS: BP 136/72; PULSE 78; O2SAT 89; BMI 38.7
--- NOTE | 2024-04-06 12:56 | MHC.PC.OV ---
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 Mother No problems noted. Social History Housing: Apartment Alcohol intake: current Alcohol intake frequency: 0-2 drinks per day Alcohol type: beer Patient Tobacco Use Status: Current everyday Tobacco user Tobacco use type: Cigarette Cigarettes Per Day: 10 Years Smoked: since age 17 e-Cigarette/Vaping Use: Never Used Second Hand Smoke Exposure: No service: No Current occupational status: employed Cognitive needs: No Hearing needs: No Vision needs: No Questionnaire PHQ-9 Over the last 2 weeks, how often have you been bothered by any of the following problems? 1. Little interest or pleasure in doing things: several days 2. Feeling down, depressed, or hopeless: nearly every day 3. Trouble falling or staying asleep, or sleeping too much: more than half the days 4. Feeling tired or having little energy: more than half the days 5. Poor appetite or overeating: not at all 6. Feeling bad about yourself - or that you are a failure or have let yourself or your family down: nearly every day 7. Trouble concentrating on things, such as reading the newspaper or watching television: not at all 8. Moving or speaking so slowly that other people could have noticed. Or the opposite - being so fidgety or restless that you have been moving around a lot more than usual: not at all 9. Thoughts that you would be better off or of hurting yourself in some way: not at all Total score: 11 Source: Developed by Drs. Thor Rivera, Winsome Moss, Chad French and colleagues, with an educational cyndi from [employer]. Thrive Questionnaire Date Thrive assessed: 03/19/24 AUDIT C Alcohol Use Questionnaire (AUDIT-C) 1. How often do you have a drink containing alcohol?: 2-3 times a week 2. How many drinks containing alcohol do you have on a typical day when you are drinking?: 3 or 4 3. How often do you have six or more drinks on one occasion?: Never Total Score: 4 Score Reviewed/Action Taken: Yes ANUSHKA-7 AMB Questionnaire ANUSHKA-7 Date ANUSHKA - 7 assessed: 03/19/24 Source: Developed by Drs. Thor Rivera, Winsome Moss, Chad French and colleagues, with an educational cyndi from [employer]. Review of Systems Const Denies chills, Denies headache(s) and Denies weight loss ENT Denies headache(s) Card Denies chest pain, Denies syncope and Denies irregular heart rhythm Resp Denies chest congestion GI Denies abdominal pain, Denies change in stool character, Denies nausea and Denies vomiting Musc Denies deformity and Denies joint swelling Neuro Denies syncope and Denies headache(s) Physical exam (Primary Care) Vital Signs: Last Vital Signs Pulse 78 04/06/24 12:56 BP 136/72 04/06/24 12:56 Pulse Ox 89 L 04/06/24 12:56 Oxygen Delivery Method Room Air 04/06/24 12:56 BMI result Body Mass Index 38.7 Tobacco/Smoking Status: Tobacco use Status Tobacco use date assessed 03/19/24 04/06/24 13:02 Patient Tobacco Use Status Current everyday Tobacco 04/06/24 13:02 Tobacco use type Cigarette 04/06/24 13:02 e-Cigarette/Vaping Use Never Used 04/06/24 13:02 PHQ-9: PHQ-9 Score PHQ-9: Total score 11 04/06/24 13:02 Thrive Assessment: Date of Thrive Assessment Date Thrive assessed 03/19/24 04/06/24 13:02 Const General: cooperative, comfortable, no acute distress and alert Neck Neck: Yes no lymphadenopathy Thyroid: Thyroid normal Resp Effort & Inspection: normal respiratory effort Auscultation: clear to auscultation bilaterally Percussion: percussion normal Cardio Jugular venous distension: no JVD Palpation: normal PMI Rate: regular rate Rhythm: regular rhythm Heart sounds: S1 normal heart sound present and S2 normal heart sound present GI Inspection: Yes normal to inspection Palpation (GI): No hepatosplenomegaly present Skin General skin exam: no rashes or lesions noted Extrem General: Yes no clubbing, cyanosis or edema Assessment and Plan Assessment & Plan (1) Dyspnea: Code(s): R06.00 - Dyspnea, unspecified Plan: labs ekg and cxr ordered; f/u 1 week Orders: Orders ECG 12 lead EKG 04/06/24 R07.9 - Chest pain, unspecified XR chest 2V 04/06/24 R06.00 - Dyspnea, unspecified Complete Blood Count Auto Diff 04/06/24 Z13.0 - Encounter for screening for diseases of the blood and blood-forming organs and certain disorders involving the immune mechanism Basic Metabolic Panel 04/06/24 R06.00 - Dyspnea, unspecified Medications: New furosemide 20 mg PO QAM 20 tabs 0RF Coding Level of Care Code Est Pt Level 3 (44672) Diagnoses Dyspnea R06.00 Additional Codes PHQ-9 - 49862 - PHQ-9 Billing: ([id number])
== END 2024-04-06 13:13 | disposition home or self-care (01) ==
PROVIDERS: PCP Internal Medicine; Visit Provider Internal Medicine
DX: R06.00 Dyspnea, unspecified (principal)
CPT/HCPCS: 99213

== ENCOUNTER 2024-04-06 13:22 | Outpatient (REF) | payer OTHER, SELFPAY ==
--- NOTE | ~2024-04-06 | XR_ITS ---
EXAMINATION: XR CHEST CLINICAL INFORMATION: tightness and shortness of breath for a couple of weeks COMPARISON: 07/01/2023 TECHNIQUE: 2 views of the chest were obtained. FINDINGS: There is no gross pneumothorax. Heart size is normal. No pleural effusion. No new focal consolidation. XR/XR chest 2V IMPRESSION: No new focal consolidation. Electronically signed by: Katie Delacruz MD 05/05/2024 05:38 AM EDT
--- NOTE | 2024-04-06 13:27 | ECG_ITS ---
Test Reason : cp Blood Pressure : / mmHG Vent. Rate : 074 BPM Atrial Rate : 074 BPM P-R Int : 194 ms QRS Dur : 112 ms QT Int : 396 ms P-R-T Axes : 069 094 071 degrees QTc Int : 439 ms Normal sinus rhythm Rightward axis Borderline ECG When compared with ECG of 23-SEP-2022 18:18, No significant change was found Referred By: Atul Ferreira Electronically Signed By:PEEWEE HUTCHINS
[2024-04-06 13:42] LABS: MANUAL DIFF FLAG NO
[2024-04-06 14:22] LABS: Basophils Percent Auto 0.2 % (0-2); Eosinophils Absolute Auto 0.1 X10*3/uL (0.0-0.4); Eosinophils Percent Auto 0.9 % (0-4); Hematocrit 50.2 % (42.0-52.0); Hemoglobin 16.4 g/dl (14.0-18.0); Imm Gran Abs Auto 0.06 X10*3/uL (0.00-0.03); Imm Gran Pct Auto 0.7 % (0.0-0.4); Lymphocytes Absolute Auto 1.5 X10*3/uL (1.2-4.9); Lymphocytes Percent Auto 18.7 % (20-40); Mean Corpuscular HGB Conc 32.7 g/dl (31.0-36.0); Mean Corpuscular Hemoglobin 32.3 pg (27.0-33.0); Mean Platelet Volume 9.5 fL (9.4-12.4); Monocytes Absolute Auto 0.7 X10*3/uL (0.1-1.2); Monocytes Percent Auto 8.6 % (2-11); Neutrophils Absolute Auto 5.7 x10*3/uL (2.0-8.3); Neutrophils Percent Auto 70.9 % (45-73); Platelet Count 207 X10*3/uL (160-400); Red Blood Count 5.07 X10*6/uL (4.60-5.80); Red Cell Distribution Width 13.3 % (11.0-16.0); White Blood Count 8.1 X10*3/uL (4.8-10.8)
[2024-04-06 14:51] LABS: Anion Gap 12 (12-20); Blood Urea Nitrogen 12 mg/dL (9-16); Calcium 9.7 mg/dL (8.4-10.2); Carbon Dioxide 32 mmol/L (22-29); Chloride 101 mmol/L (96-108); Estimated Glomerular Filt Rate > 60; Glucose Random 149 mg/dL (60-115); Sodium 141 mmol/L (135-145)
== END 2024-04-06 13:23 | disposition home or self-care (01) ==
LOC: HO.XRAY 13:22
PROVIDERS: PCP Internal Medicine; Visit Provider Internal Medicine
DX: R06.00 Dyspnea, unspecified (principal); Z13.0 Encounter for screening for diseases of the blood and blood-forming organs and certain disorders involving the immune mechanism; R07.9 Chest pain, unspecified
CPT/HCPCS: 36415; 71046; 80048; 85025; 93005

== ENCOUNTER → 2024-04-06 13:27 | Outpatient (BNV) | payer OTHER, SELFPAY | PROVIDERS: PCP Internal Medicine; Visit Provider Internal Medicine | DX: R07.9 Chest pain, unspecified (principal) | CPT/HCPCS: 93010 ==

== ENCOUNTER 2024-04-13 10:24 | Outpatient (AMB) | payer OTHER, SELFPAY ==
[2024-04-13 10:26] VITALS: BP 138/74; PULSE 70; O2SAT 91; BMI 38.7
--- NOTE | 2024-04-13 10:26 | MHC.PC.OV ---
Vital Signs 04/13/24 10:26 Height 5 ft 10 in Weight 270 lb BMI 38.7 BP 138/74 Blood Pressure Location Lt brachial Position Sitting Pulse 70 Pulse Source Pulse Oximeter Pulse Oximetry (%) 91 L Oxygen Delivery Method Room Air Intake Visit Reasons: 1 WEEK F/U Allergies No Known Allergies [No Known Allergies*] Allergy (Verified 04/13/24 10:26) Medication List - Last Reconciled 04/13/24 by Atul Ferreira MD albuterol sulfate 90 mcg/actuation 2 puffs inhalation Q6H PRN diltiazem HCl ER (Tiadylt ER) 360 mg PO DAILY flecainide 50 mg (1/2 x 100 mg) PO BID 90 days furosemide 20 mg PO QAM lisinopril 10 mg PO DAILY Tobacco use date assessed: 03/19/24 Dental Screening Dental Screen Date: 03/19/24 HPI 1 WEEK F/U HPI Details snoring and restless sleep; he is obese with a thick neck [facility] Medical History 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 Mother No problems noted. Social History Housing: Apartment Alcohol intake: current Alcohol intake frequency: 0-2 drinks per day Alcohol type: beer Patient Tobacco Use Status: Current everyday Tobacco user Tobacco use type: Cigarette Cigarettes Per Day: 10 Years Smoked: since age 17 e-Cigarette/Vaping Use: Never Used Second Hand Smoke Exposure: No service: No Current occupational status: employed Cognitive needs: No Hearing needs: No Vision needs: No Questionnaire PHQ-9 Over the last 2 weeks, how often have you been bothered by any of the following problems? 1. Little interest or pleasure in doing things: several days 2. Feeling down, depressed, or hopeless: nearly every day 3. Trouble falling or staying asleep, or sleeping too much: more than half the days 4. Feeling tired or having little energy: more than half the days 5. Poor appetite or overeating: not at all 6. Feeling bad about yourself - or that you are a failure or have let yourself or your family down: nearly every day 7. Trouble concentrating on things, such as reading the newspaper or watching television: not at all 8. Moving or speaking so slowly that other people could have noticed. Or the opposite - being so fidgety or restless that you have been moving around a lot more than usual: not at all 9. Thoughts that you would be better off or of hurting yourself in some way: not at all Total score: 11 Source: Developed by Drs. Thor Rivera, Winsome Moss, Chad French and colleagues, with an educational cyndi from [employer] Thrive Questionnaire Date Thrive assessed: 03/19/24 AUDIT C Alcohol Use Questionnaire (AUDIT-C) 1. How often do you have a drink containing alcohol?: 2-3 times a week 2. How many drinks containing alcohol do you have on a typical day when you are drinking?: 3 or 4 3. How often do you have six or more drinks on one occasion?: Never Total Score: 4 Score Reviewed/Action Taken: Yes ANUSHKA-7 AMB Questionnaire ANUSHKA-7 Date ANUSHKA - 7 assessed: 03/19/24 Source: Developed by Drs. Thor Rivera, Winsome Moss, Chad French and colleagues, with an educational cyndi from [employer] ([employer]). Review of Systems Const Denies chills, Denies headache(s) and Denies weight loss ENT Denies headache(s) Card Denies chest pain, Denies syncope, Denies irregular heart rhythm and Denies dyspnea Resp Denies chest congestion, Denies cough and Denies dyspnea GI Denies abdominal pain, Denies change in stool character, Denies nausea and Denies vomiting Musc Denies deformity and Denies joint swelling Neuro Denies syncope and Denies headache(s) Physical exam (Primary Care) Vital Signs: Last Vital Signs Pulse 70 04/13/24 10:26 BP 138/74 04/13/24 10:26 Pulse Ox 91 L 04/13/24 10:26 Oxygen Delivery Method Room Air 08/20/24 10:26 BMI result Body Mass Index 38.7 Tobacco/Smoking Status: Tobacco use Status Tobacco use date assessed 03/19/24 04/13/24 10:31 Patient Tobacco Use Status Current everyday Tobacco 04/13/24 10:31 Tobacco use type Cigarette 04/13/24 10:31 e-Cigarette/Vaping Use Never Used 04/13/24 10:31 PHQ-9: PHQ-9 Score PHQ-9: Total score 11 04/13/24 10:31 Thrive Assessment: Date of Thrive Assessment Date Thrive assessed 03/19/24 04/13/24 10:31 Const General: cooperative, comfortable, no acute distress and alert Neck Neck: Yes no lymphadenopathy Thyroid: Thyroid normal Resp Effort & Inspection: normal respiratory effort Auscultation: clear to auscultation bilaterally Percussion: percussion normal Cardio Jugular venous distension: no JVD Palpation: normal PMI Rate: regular rate Rhythm: regular rhythm Heart sounds: S1 normal heart sound present and S2 normal heart sound present GI Inspection: Yes normal to inspection Palpation (GI): No hepatosplenomegaly present Skin General skin exam: no rashes or lesions noted Extrem General: Yes no clubbing, cyanosis or edema Assessment and Plan Assessment & Plan (1) Sleep apnea: Code(s): G47.30 - Sleep apnea, unspecified Plan: may have olya; sleep study ordered Orders: Orders RT home sleep study Today Coding Level of Care Code Est Pt Level 3 (65301) Diagnoses Sleep apnea G47.30 Additional Codes PHQ-9 - 85564 - PHQ-9 Billing: ([id number])
== END 2024-04-13 10:42 | disposition home or self-care (01) ==
PROVIDERS: PCP Internal Medicine; Visit Provider Internal Medicine
DX: G47.30 Sleep apnea, unspecified (principal)
CPT/HCPCS: 99213

== ENCOUNTER 2024-06-04 11:43 | Outpatient (AMB) | payer OTHER, SELFPAY ==
[2024-06-04 11:45] VITALS: BP 142/74; PULSE 73; O2SAT 87; BMI 41.6
--- NOTE | 2024-06-04 11:45 | A.OFFPC_ITS ---
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 Accompanied by: Self / Same As Patient Allergies No Known Allergies [No Known Allergies*] Allergy (Verified 06/04/24 11:47) Medication List - Last Reconciled 06/07/24 by Atul Ferreira MD albuterol sulfate 90 mcg/actuation 2 puffs inhalation Q6H PRN diltiazem HCl ER (Tiadylt ER) 360 mg PO DAILY flecainide 50 mg (1/2 x 100 mg) PO BID 90 days furosemide 20 mg PO QAM gabapentin 100 mg PO BID lisinopril 10 mg PO DAILY Tobacco use date assessed: 03/19/24 Dental Screening Dental Screen Date: 03/19/24 HPI Regular visit HPI Details atrial flutter on rx; sees cardiology; feeling well and compliant [facility] Medical History 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 Mother No problems noted. Social History Housing: Apartment Alcohol intake: current Alcohol intake frequency: 0-2 drinks per day Alcohol type: beer Patient Tobacco Use Status: Current everyday Tobacco user Tobacco use type: Cigarette Cigarettes Per Day: 10 Years Smoked: since age 17 e-Cigarette/Vaping Use: Never Used Second Hand Smoke Exposure: No service: No Current occupational status: employed Cognitive needs: No Hearing needs: No Vision needs: No Questionnaire Thrive Questionnaire Date Thrive assessed: 03/19/24 Are you currently unemployed and looking for a job?: No ANUSHKA-7 AMB Questionnaire ANUSHKA-7 Date ANUSHKA - 7 assessed: 03/19/24 Source: Developed by Drs. Thor Rivera, Winsome Moss, Chad French and colleagues, with an educational cyndi from [employer]. Review of Systems Const Denies chills, Denies headache(s) and Denies weight loss ENT Denies headache(s) Card Denies chest pain, Denies syncope, Denies irregular heart rhythm and Denies dyspnea Resp Denies chest congestion, Denies cough and Denies dyspnea GI Denies abdominal pain, Denies change in stool character, Denies nausea and Denies vomiting Musc Denies deformity and Denies joint swelling Neuro Denies syncope and Denies headache(s) Physical exam (Primary Care) Vital Signs: Last Vital Signs Pulse 73 06/04/24 11:45 BP 142/74 H 06/04/24 11:45 Pulse Ox 87 L 06/04/24 11:45 Oxygen Delivery Method Room Air 06/04/24 11:45 BMI result Body Mass Index 41.6 Tobacco/Smoking Status: Tobacco use Status Tobacco use date assessed 03/19/24 06/04/24 11:48 Patient Tobacco Use Status Current everyday Tobacco 06/04/24 11:48 Tobacco use type Cigarette 06/04/24 11:48 e-Cigarette/Vaping Use Never Used 06/04/24 11:48 Thrive Assessment: Date of Thrive Assessment Date Thrive assessed 03/19/24 06/04/24 11:48 Const General: cooperative, comfortable, no acute distress and alert Neck Neck: Yes no lymphadenopathy Thyroid: Thyroid normal Resp Effort & Inspection: normal respiratory effort Auscultation: clear to auscultation bilaterally Percussion: percussion normal Cardio Jugular venous distension: no JVD Palpation: normal PMI Rate: regular rate Rhythm: regular rhythm Heart sounds: S1 normal heart sound present and S2 normal heart sound present GI Inspection: Yes normal to inspection Palpation (GI): No hepatosplenomegaly present Skin General skin exam: no rashes or lesions noted Extrem General: Yes no clubbing, cyanosis or edema Coding Level of Care Code Est Pt Level 3 (57452) Diagnoses Paroxysmal atrial flutter I48.92 Assessment & Plan Assessment & Plan (1) Paroxysmal atrial flutter: Code(s): I48.92 - Unspecified atrial flutter Category: Medical Plan: stable; as per cardiology Orders: Orders Lipid Panel 06/04/24 Z13.220 - Encounter for screening for lipoid disorders Comprehensive [place]. Panel Fast 06/04/24 Z13.9 - Encounter for screening, unspecified CA echo transthoracic complete 06/04/24 R06.00 - Dyspnea, unspecified Complete Blood Count Auto Diff 06/04/24 Z13.0 - Encounter for screening for diseases of the blood and blood-forming organs and certain disorders involving the immune mechanism XR chest 2V 06/04/24 R06.00 - Dyspnea, unspecified Medications: New gabapentin 100 mg PO BID 60 caps 4RF
== END 2024-06-04 11:59 | disposition home or self-care (01) ==
PROVIDERS: PCP Internal Medicine; Visit Provider Internal Medicine
DX: I48.92 Unspecified atrial flutter (principal)

== ENCOUNTER → 2024-06-04 11:43 | Outpatient (BNVA) | payer OTHER, SELFPAY | PROVIDERS: PCP Internal Medicine; Visit Provider Internal Medicine ==

== ENCOUNTER → 2024-06-09 08:00 | Outpatient (REF) | payer OTHER, SELFPAY | LOC: HO.SL 08:00 | PROVIDERS: PCP Internal Medicine; Visit Provider Internal Medicine | DX: G47.33 Obstructive sleep apnea (adult) (pediatric) (principal) | CPT/HCPCS: 95806 ==

== ENCOUNTER → 2024-06-14 08:13 | Outpatient (BNV) | payer OTHER, SELFPAY | PROVIDERS: PCP Internal Medicine; Visit Provider Internal Medicine | DX: G47.33 Obstructive sleep apnea (adult) (pediatric) (principal) | CPT/HCPCS: 95806 ==

== ENCOUNTER 2024-06-14 08:14 | Outpatient (REF) | payer OTHER, SELFPAY ==
[2024-06-14 08:29] LABS: MANUAL DIFF FLAG NO
[2024-06-14 08:38] LABS: Basophils Percent Auto 0.4 % (0-2); Eosinophils Absolute Auto 0.1 X10*3/uL (0.0-0.4); Eosinophils Percent Auto 1.5 % (0-4); Hematocrit 52.2 % (42.0-52.0); Hemoglobin 16.9 g/dl (14.0-18.0); Imm Gran Abs Auto 0.04 X10*3/uL (0.00-0.03); Imm Gran Pct Auto 0.5 % (0.0-0.4); Lymphocytes Absolute Auto 1.7 X10*3/uL (1.2-4.9); Lymphocytes Percent Auto 21.4 % (20-40); Mean Corpuscular HGB Conc 32.4 g/dl (31.0-36.0); Mean Corpuscular Hemoglobin 32.3 pg (27.0-33.0); Mean Corpuscular Volume 99.6 fL (80.0-98.0); Mean Platelet Volume 9.2 fL (9.4-12.4); Monocytes Absolute Auto 0.8 X10*3/uL (0.1-1.2); Monocytes Percent Auto 9.6 % (2-11); Neutrophils Absolute Auto 5.2 x10*3/uL (2.0-8.3); Neutrophils Percent Auto 66.6 % (45-73); Platelet Count 194 X10*3/uL (160-400); Red Blood Count 5.24 X10*6/uL (4.60-5.80); Red Cell Distribution Width 12.9 % (11.0-16.0); White Blood Count 7.8 X10*3/uL (4.8-10.8)
[2024-06-14 09:26] LABS: Alanine Aminotransferase 20 U/L (0-40); Albumin Level 4.3 g/dL (3.5-5.0); Alkaline Phosphatase 64 U/L (39-117); Anion Gap 10 (12-20); Aspartate Amino Transferase 15 U/L (5-37); Bilirubin Total 0.4 mg/dL (0.0-1.0); Blood Urea Nitrogen 15 mg/dL (9-16); Calcium 9.9 mg/dL (8.4-10.2); Carbon Dioxide 37 mmol/L (22-29); Chloride 101 mmol/L (96-108); Cholesterol 179 mg/dL (<200); Estimated Glomerular Filt Rate > 60; Glucose Fasting 124 mg/dL (60-99); HDL Cholesterol 63 mg/dL (>40); LDL Cholesterol Calculated 101 mg/dL (<100); Potassium 4.9 mmol/L (3.3-5.1); Sodium 143 mmol/L (135-145); Total Protein 7.4 g/dL (6.5-8.0); Triglycerides 79 mg/dL (<150)
== END 2024-06-14 08:15 | disposition home or self-care (01) ==
LOC: HO.LAB 08:14
PROVIDERS: PCP Internal Medicine; Visit Provider Internal Medicine
DX: Z13.0 Encounter for screening for diseases of the blood and blood-forming organs and certain disorders involving the immune mechanism (principal); Z13.9 Encounter for screening, unspecified; Z13.220 Encounter for screening for lipoid disorders
CPT/HCPCS: 36415; 80053; 80061; 85025

== ENCOUNTER 2024-06-17 14:48 | Outpatient (REF) | payer OTHER, SELFPAY ==
--- NOTE | ~2024-06-17 | XR_ITS ---
EXAMINATION: XR CHEST 2 VIEWS CLINICAL INFORMATION: Dyspnea, unspecified R06.00. COMPARISON: April 06, 2024. TECHNIQUE: PA and lateral views of the chest were obtained. FINDINGS: No significant abnormality is noted involving the lungs, mediastinum, bony thorax or soft tissues. Cardiac silhouette upper normal in size to mildly enlarged. XR/XR chest 2V IMPRESSION: No acute infiltrate identified. Electronically signed by: Cesar Welch MD 08/04/2024 01:36 PM [facility]
== END 2024-06-17 14:49 | disposition home or self-care (01) ==
LOC: HO.XRAY 14:48
PROVIDERS: PCP Internal Medicine; Visit Provider Internal Medicine
DX: R06.00 Dyspnea, unspecified (principal)
CPT/HCPCS: 71046

== ENCOUNTER → 2024-07-02 14:50 | Outpatient (REF) | payer OTHER, SELFPAY ==
--- NOTE | 2024-07-02 14:52 | CA_ITS ---
Transthoracic Echocardiogram Patient (Last, First, Middle): Lux May J Gender: Male Date of : 1965 Age: 59 Procedure Date: 07/02/2024 Procedure Type: Transthoracic Echocardiogram Location: OP Height: 177.8 cm Weight: 131.54 kg BSA: 2.44 m2 Heart Rate: 66 bpm BP: 142 / 74 mmHg Hostel Parent: SB Referring MD: Atul Ferreira MD Gear Inspector: Barber Fung MD Symptoms: R06.00 - Dyspnea, unspecified Study Quality: Technically Difficult ECG Rhythm: Sinus Conclusions: - 1. Normal LV ejection fraction 55-60% with pseudonormal filling pattern 2. Cardiac valvular Doppler was grossly within normal limits Findings Procedure Information Contrast agent, definity, is being given per protocol without apparent complications. The quality of the study was technically difficult. The study quality is limited by patients body habitus and lung artifact. Left Ventricle Mildly increased left ventricular cavity size. There is normal left ventricular wall thickness. The left ventricular systolic function is normal. The visually estimated ejection fraction is between 55-60%. Spectral Doppler is indicative of a pseudonormal filling pattern. E/E prime ratio is between 8 and 15 consistent with indeterminate filling pressures. Right Ventricle Mildly increased right ventricular cavity size. There is normal right ventricular systolic function. Atria The left atrium is normal in size. Interatrial shunt cannot be excluded. The right atrium was not well visualized. Aortic Valve The aortic valve was not well visualized. There is no aortic valve stenosis. There is no aortic valve regurgitation. Mitral Valve The mitral valve was not well visualized. There is trace mitral valve regurgitation. There is no mitral valve stenosis. Pulmonic Valve The pulmonic valve was not well visualized. Tricuspid Valve The tricuspid valve was not well visualized. Tricuspid regurgitation envelope is inadequate for calculation of right ventricular systolic pressure. Normal right atrial pressure. Great Vessels The aorta was not well visualized. The pulmonary artery was not well visualized. There is no dilatation of the ascending aorta measuring 2.90 cm. Venous The inferior vena cava is normal in size and collapses greater than 50% with inspiration. Pericardium/Pleural The pericardium was not well visualized. Prior Study Comparison No significant change compared to prior study dated: 12/23/2017. Measurements 2D Linear Measurements IVSd: 1.07 0.6-0.9/0.6-1.0 cm LVIDd: 5.71 3.9-5.3/4.2-5.9 cm LVIDd Index: 2.34 2.4-3.2/2.2-3.1 cm/m2 LVIDs: 3.92 2.0-3.6 cm LVPWd: 0.94 0.7-1.1 cm LA Diam: 3.40 2.7-3.8/3.0-4.0 cm LAIDs Index: 1.39 1.5-2.3 cm/m2 LV Mass: 284.89 67-162/88-224 g LV Mass Index: 116.76 43-95/49-115 g/m2 LVOT Diam: 2.00 3.0+(-)1.3 cm 2D Systolic Function EF 4C: 55.90 >55% EF 2C: 54.60 >55% EF BiP: 54.90 >55% Mitral Valve MV Pk E: 1.19 MV PK A: 1.11 MV Decel Time: 265.00 E/A: 1.10 E'Lateral: 7.83 E'Medial: 7.83 E/E' Med: 15.20 E/E' Lat: 15.20 PHT: 78.00 MVA PHT: 2.82 Decel [place]: 4.50 Aortic Valve AoV Pk Rommel: 1.60 AoV Pk Grad: 10.00 WAQAR: 2.77 LVOT LVOT Pk Rommel: 1.30 LVOT Mn Rommel: 0.92 LVOT VTI: 0.26 LVOT Pk Grad: 7.00 LVOT Mn Grad: 4.00 LVOT Diam: 2.00 LVOT Area: 3.14 Diastolic Function MV Pk E: 1.19 MV Pk A: 1.11 E/A: 1.10 E'Medial: 7.83 E/E' Med: 15.20 E' Laterial: 7.83 E/E' Lat: 15.20 Right Ventricle TAPSE (mm): 22.90 TVS' Rommel: 15.70 Tricuspid Valve RA Press: 3.00 Great Vessels Aorta Ao Asc: 2.90 2.1-3.4 cm Pulmonary Veins Pulm Vein S/D 1.20 Pulmonary Valve PV Pk Rommel: 0.98 Peak PV Grad: 4.00 Updated in Other Vendor System with Status of Final Barber Fung MD electronically signed on 07/03/2024 11:08:24 AM with status of Final
== END ==
LOC: HO.CARD 14:50
PROVIDERS: PCP Internal Medicine; Visit Provider Internal Medicine
DX: R06.00 Dyspnea, unspecified (principal)
CPT/HCPCS: 93306; Q9957

== ENCOUNTER → 2024-07-02 14:52 | Outpatient (BNV) | payer OTHER, SELFPAY | PROVIDERS: PCP Internal Medicine; Visit Provider Internal Medicine Cardiovascular Disease | DX: R06.00 Dyspnea, unspecified (principal); I51.89 Other ill-defined heart diseases | CPT/HCPCS: 93306 ==

== ENCOUNTER 2024-07-05 08:46 | Outpatient (AMB) | payer OTHER, SELFPAY ==
--- NOTE | 2024-07-05 08:47 | MHC.PC.OV ---
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 Accompanied by: Self / Same As Patient Allergies No Known Allergies [No Known Allergies*] Allergy (Verified 07/05/24 08:48) Medication List - Last Reconciled 07/06/24 by Atul Ferreira MD albuterol sulfate 90 mcg/actuation 2 puffs inhalation Q6H PRN diltiazem HCl ER (Tiadylt ER) 360 mg PO DAILY flecainide 50 mg (1/2 x 100 mg) PO BID 90 days furosemide 20 mg PO QAM gabapentin 100 mg PO BID lisinopril 10 mg PO DAILY Tobacco use date assessed: 03/19/24 Dental Screening Dental Screen Date: 03/19/24 HPI Labs f/u HPI Details HTN on Rx; doing well; compliant [facility] 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 Mother No problems noted. Social History Housing: Apartment Alcohol intake: current Alcohol intake frequency: 0-2 drinks per day Alcohol type: beer Patient Tobacco Use Status: Current everyday Tobacco user Tobacco use type: Cigarette Cigarettes Per Day: 10 Years Smoked: since age 17 e-Cigarette/Vaping Use: Never Used Second Hand Smoke Exposure: No service: No Current occupational status: employed Cognitive needs: No Hearing needs: No Vision needs: No Questionnaire Thrive Questionnaire Date Thrive assessed: 03/19/24 Are you currently unemployed and looking for a job?: No ANUSHKA-7 AMB Questionnaire ANUSHKA-7 Date ANUSHKA - 7 assessed: 03/19/24 Source: Developed by Winsome WilsonW. Ajay, Chad French and colleagues, with an educational cyndi from [employer]. Review of Systems Const Denies chills, Denies headache(s) and Denies weight loss ENT Denies headache(s) Card Denies chest pain, Denies syncope, Denies irregular heart rhythm and Denies dyspnea Resp Denies chest congestion, Denies cough and Denies dyspnea GI Denies abdominal pain, Denies change in stool character, Denies nausea and Denies vomiting Musc Denies deformity and Denies joint swelling Neuro Denies syncope and Denies headache(s) Physical exam (Primary Care) Vital Signs: Last Vital Signs Pulse 66 07/05/24 08:48 BP 138/66 07/05/24 08:48 Pulse Ox 88 L 07/05/24 08:48 Oxygen Delivery Method Room Air 07/05/24 08:48 BMI result Body Mass Index 40.9 Tobacco/Smoking Status: Tobacco use Status Tobacco use date assessed 03/19/24 07/05/24 08:53 Patient Tobacco Use Status Current everyday Tobacco 07/05/24 08:53 Tobacco use type Cigarette 07/05/24 08:53 e-Cigarette/Vaping Use Never Used 07/05/24 08:53 Thrive Assessment: Date of Thrive Assessment Date Thrive assessed 03/19/24 07/05/24 08:53 Const General: cooperative, comfortable, no acute distress and alert Neck Neck: Yes no lymphadenopathy Thyroid: Thyroid normal Resp Effort & Inspection: normal respiratory effort Auscultation: clear to auscultation bilaterally Percussion: percussion normal Cardio Jugular venous distension: no JVD Palpation: normal PMI Rate: regular rate Rhythm: regular rhythm Heart sounds: S1 normal heart sound present and S2 normal heart sound present GI Inspection: Yes normal to inspection Palpation (GI): No hepatosplenomegaly present Skin General skin exam: no rashes or lesions noted Extrem General: Yes no clubbing, cyanosis or edema Coding Level of Care Code Est Pt Level 3 (88945) Diagnoses Essential hypertension I10 Assessment & Plan Assessment & Plan (1) Essential hypertension: Code(s): I10 - Essential (primary) hypertension Category: Medical Plan: stable; same rx
[2024-07-05 08:48] VITALS: BP 138/66; PULSE 66; O2SAT 88; BMI 40.9
== END 2024-07-05 09:11 | disposition home or self-care (01) ==
PROVIDERS: PCP Internal Medicine; Visit Provider Internal Medicine
DX: I10 Essential (primary) hypertension (principal)

== ENCOUNTER 2024-09-08 08:56 | Outpatient (REF) | payer OTHER, SELFPAY ==
--- NOTE | ~2024-09-08 | XR_ITS ---
EXAMINATION: XR CHEST 2 VIEWS HISTORY: R05.9 - Cough, unspecified COMPARISON: Comparison is made with the prior examination dated 06/17/2024. FINDINGS: PA and lateral views of the chest are submitted. The lungs are expanded and clear. There is no pleural effusion, pneumothorax, or pulmonary vascular congestion. The heart is normal in size. The bones are intact. XR/XR chest 2V IMPRESSION: No acute cardiopulmonary abnormality. Electronically signed by: Thor Espinoza MD 09/08/2024 10:13 AM KATHLEEN
[2024-09-08 13:57] LABS: Influenza A PCR NEGATIVE (Negative); Influenza B PCR NEGATIVE (Negative); Resp Syncy Virus RNA Qual PCR NEGATIVE (Negative); SARS COV2 PCR INHOUSE NEGATIVE (Negative)
== END 2024-09-08 08:57 | disposition home or self-care (01) ==
LOC: HO.HMGCX 08:56
PROVIDERS: PCP Internal Medicine; Visit Provider Physician Assistant
DX: R05.1 Acute cough (principal); F17.210 Nicotine dependence, cigarettes, uncomplicated
CPT/HCPCS: 0241U; 71046; 94640

== ENCOUNTER 2024-09-08 08:56 | Outpatient (AMB) | payer OTHER, SELFPAY ==
--- NOTE | 2024-09-08 09:11 | MHC.OFFWIV ---
Intake Vital Signs 09/08/24 09:15 Weight 294 lb BP 130/74 Blood Pressure Location Rt brachial Position Sitting Pulse 80 Pulse Source Pulse Oximeter Temp 98.2 F Temp Source Oral Pulse Oximetry (%) 91 L Oxygen Delivery Method Room Air Intake Visit Reasons: EP cough, difficulty breathing, nasal congestion Intake Note: Patient here for cough, chest congestion, nasal congestion, headaches, nausea and sob that has been present for about 1 week. Patient Tobacco Use Status: Current everyday Tobacco user Allergies No Known Allergies [No Known Allergies*] Allergy (Verified 09/08/24 09:15) Do you need a note to return to daycare/school/sports/work: No HPI HPI Comments History of Present Illness Details He oresents to office with cough Not seen for it yet Ongoing x 1 week He said he is a smoker and is usually low 90s + cough with yellow phlegm He denies fever or chills + headache with cough +runny nose No ST or ear pain He has tried cough medicine OTC prn He has inhaler at home; Albuterol. 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 Mother No problems noted. Social History Housing: Apartment Alcohol intake: current Alcohol intake frequency: 0-2 drinks per day Alcohol type: beer Patient Tobacco Use Status: Current everyday Tobacco user Tobacco use type: Cigarette Cigarettes Per Day: 10 Years Smoked: since age 17 e-Cigarette/Vaping Use: Never Used Second Hand Smoke Exposure: No service: No Current occupational status: employed Cognitive needs: No Hearing needs: No Vision needs: No Review of Systems Const Denies chills, Reports fatigue, Denies fever(s) and Reports headache(s) (with coughing a lot) ENT Denies dizziness, Denies otalgia, Reports headache(s) (with coughing a lot), Reports nasal congestion and Denies sore throat Card Denies chest pain and Reports dyspnea on exertion Resp Reports change in phlegm color, Reports chest congestion, Reports cough, Denies hemoptysis and Reports dyspnea on exertion GI Denies abdominal pain Neuro Denies dizziness and Reports headache(s) (with coughing a lot) Endo Reports fatigue Physical Exam Vital Signs: Last Vital Signs Temp 98.2 F 09/08/24 09:15 Pulse 80 09/08/24 09:15 BP 130/74 09/08/24 09:15 Pulse Ox 91 L 09/08/24 09:15 Oxygen Delivery Method Room Air 09/08/24 09:15 General: Non-toxic, NAD. Speaking full sentences. Skin: Warm dry throughout Eye: EOMI HENT: Airway patent. Uvula midline. No pharyngeal erythema or edema. 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 Bilateral canals clear. TM slight-erythematous, non-bulging. No TM perforation or hemotympanum noted. Respiratory: Decreased throughout with slight wheeze at R base. No stridor or tachypnea Cardiac: RRR. No murmur Neurology: Alert. No aphasia or facial droop. Gait without abnormality Psych: Good mood and affect Office Procedures Nebulizer Treatment Nebulizer Treatment [id number]/MDI RX initial, or Nebulizer Subsequent Treatment Office Meds albuterol sulfate 2.5 mg/3 mL (0.083 %) solution for nebulization Performing Provider: Nury Taylor PA-C [place] [facility] [place] [facility] Administered by: Uzma Hayden on 09/08/24 09:58 Dose Route Admin Location Dispensed Lot Number Expiration Date [facility] Insurance Policy Clerk 2.5 mg inhalation 3 mL [id number] 04/13/25 [id number] MYLAN Assessment & Plan Assessment & Plan (1) Cough: Code(s): R05.9 - Cough, unspecified Qualifiers: Cough type: acute Qualified Code(s): R05.1 - Acute cough Plan: Patient seen and evaluated. Chest xray ordered: I viewed and saw no obvious infiltrate but + chronic changing Concern for bacterial bronchitis Will cover with doxycycline (interaction with azithromycin) Albuterol neb given in office. Re-eval: 93-94% RA post tx with 64bpm. Pt states feeling better Flu/RSV/COVID swab obtained ER symptoms discussed Patient gave verbal understanding and had no additional questions or concerns at time of discharge All questions answered Orders: Orders XR chest 2V Today R05.9 - Cough, unspecified AMB Nebulizer Treatment Today R05.9 - Cough, unspecified SARS-CoV2/FLU/RSV Today R05.1 - Acute cough Medications: New doxycycline hyclate 100 mg PO BID 14 caps 0RF prednisone 40 mg (2 x 20 mg) PO DAILY 8 tabs 0RF Coding Level of Care Code Est Pt Level 4 (18544) Diagnoses Acute cough R05.1 Cough type: acute CPT Codes Nebulizer Treatment - Nebulizer Treatment, initial or subsequent: [id number]/MDI RX initial, or Nebulizer Subsequent Treatment ([id number])
[2024-09-08 09:15] VITALS: BP 130/74; PULSE 80; TEMP 36.8; O2SAT 91
--- NOTE | 2024-09-08 09:57 | AM.OFFVISNUR ---
Vital Signs 09/08/24 09:15 Weight 294 lb BP 130/74 Blood Pressure Location Rt brachial Position Sitting Pulse 80 Pulse Source Pulse Oximeter Temp 98.2 F Temp Source Oral Pulse Oximetry (%) 91 L Oxygen Delivery Method Room Air Intake Visit Reasons: EP cough, difficulty breathing, nasal congestion Allergies No Known Allergies [No Known Allergies*] Allergy (Verified 09/08/24 09:15) Office Procedures Nebulizer Treatment Nebulizer Treatment [id number] RX initial, or Nebulizer Subsequent Treatment Office Meds albuterol sulfate 2.5 mg/3 mL (0.083 %) solution for nebulization Performing Provider: Nury Taylor PA-C Performing Location: [facility] [place] [facility] Administered by: Uzma Hayden on 09/08/24 09:58 Dose Route Admin Location Dispensed Lot Number Expiration Date 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
== END 2024-09-08 10:41 | disposition home or self-care (01) ==
PROVIDERS: PCP Internal Medicine; Visit Provider Physician Assistant
DX: R05.1 Acute cough (principal); R05.9 Cough, unspecified

== ENCOUNTER → 2024-09-08 09:42 | Outpatient (BNV) | payer OTHER, SELFPAY | PROVIDERS: PCP Internal Medicine; Visit Provider Radiology Diagnostic Radiology | DX: R05.9 Cough, unspecified (principal) | CPT/HCPCS: 71046 ==

== ENCOUNTER 2024-09-16 09:05 | Outpatient (AMB) | payer OTHER, SELFPAY ==
--- NOTE | 2024-09-16 09:13 | MHC.OFFVIS ---
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 In the past, underwent cardioversion for the same. Maintained on a small dose of flecainide and diltiazem. Has not had any recurrences for years. Was on Xarelto in the past but then developed melena and then it was stopped. Due to lack of recurrent atrial fibrillation as well as low thromboembolic risk, not on any anticoagulation. Since last seen, no new complaints. Breathing is just about the same. He is still smoking but cut back. Weight has gone up a bit. He states he is no longer working and got laid off. Otherwise, takes his medications regularly. No atrial fibrillation episodes. [facility] Medical History Essential hypertension senior living current use of antiarrhythmic drug PAF (paroxysmal atrial fibrillation) Paroxysmal atrial flutter Surgical History History of colonoscopy (~09/26/15) History of cardioversion (~2015) Family History Father No problems noted. Mother No problems noted. Social History (Updated 09/16/24 @ 09:19 by Areli Lepe CMA) Housing: Apartment Alcohol intake: current Alcohol intake frequency: a few times a week Alcohol type: beer Patient Tobacco Use Status: Current everyday Tobacco user Tobacco use type: Cigarette Cigarettes Per Day: 10 Years Smoked: since age 17 e-Cigarette/Vaping Use: Never Used Second Hand Smoke Exposure: No service: No Current occupational status: employed Cognitive needs: No Hearing needs: No Vision needs: No Review of Systems Const Denies chills, Denies fatigue, Denies fever(s), Denies weight gain and Denies weight loss ENT Denies dizziness Card Denies chest pain, Denies leg edema, Denies lightheadedness, Denies palpitations, Reports dyspnea on exertion, Denies orthopnea and Denies other Resp Denies cough and Reports dyspnea on exertion GI Denies hematochezia and Denies change in stool character Musc Denies abnormal gait, Denies muscle weakness, Denies numbness, Denies radiating pain into limb and Denies tingling Neuro Denies abnormal gait, Denies dizziness, Denies numbness and Denies tingling Endo Denies fatigue and Denies palpitations Physical Exam Vital Signs: Last Vital Signs Pulse 81 09/16/24 09:14 BP 134/70 09/16/24 09:14 BMI result Body Mass Index 42.5 Const General: comfortable and no acute distress Orientation/consciousness: patient oriented x3 HEENT Other: Unremarkable Head: Yes normal to inspection Neck Neck: Yes normal visual inspection Chest Chest palpation & inspection: normal inspection of the chest Resp Auscultation: diminished lung sounds Cardio Palpation: normal PMI Heart sounds: S1 normal heart sound present, S2 normal heart sound present, no gallops, no murmurs and no rubs GI Palpation (GI): Soft to palpation Back/Spine/Pelvis Other: unremarkable Skin General skin exam: no rashes or lesions noted Neuro General: patient oriented x3 Extrem General: Yes normal to inspection Psych Mental Status: mental status grossly normal Office Procedures EKG Details: EKG with underlying sinus rhythm at 81/Min; rightward axis; no significant ST-T changes and otherwise unremarkable. [place]. 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 He can remain on flecainide diltiazem without changes. If any recurring episodes, then consider anticoagulation but not otherwise. Coronary CT in the past without any significant CAD. In the recent echocardiogram, LVEF is 55-60% without any valvular findings. Description of pseudonormal filling pattern but not clear if it is just a normal filling either as the annual Doppler velocities are acceptable and left atrium is also of normal size. Hypertension is controlled on lisinopril. Again discussed about smoking cessation. Avoid alcohol excess and he states he does not drink much these days. Losing weight will certainly help as well as he has rather gained weight. EKG in 6 months. Follow-up in 1 year. Coding Level of Care Code Est Pt Level 4 (19702) Diagnoses PAF (paroxysmal atrial fibrillation) I48.0 Paroxysmal atrial flutter I48.92 senior living current use of antiarrhythmic drug Z79.899 Essential hypertension I10 Smoking F17.200 CPT Codes EKG - CPT: 22214-[id number], Complete ([id number])
[2024-09-16 09:14] VITALS: BP 134/70; PULSE 81; BMI 42.5
== END 2024-09-16 09:36 | disposition home or self-care (01) ==
PROVIDERS: PCP Internal Medicine; Visit Provider Internal Medicine
DX: I48.0 Paroxysmal atrial fibrillation (principal); I48.92 Unspecified atrial flutter; Z79.899 Other long term (current) drug therapy; I10 Essential (primary) hypertension; F17.200 Nicotine dependence, unspecified, uncomplicated
CPT/HCPCS: 93010; 99214

== ENCOUNTER → 2024-09-16 09:05 | Outpatient (BNVA) | payer SELFPAY | PROVIDERS: PCP Internal Medicine; Visit Provider Internal Medicine | DX: I48.0 Paroxysmal atrial fibrillation (principal); I48.92 Unspecified atrial flutter; I10 Essential (primary) hypertension; F17.210 Nicotine dependence, cigarettes, uncomplicated; Z79.899 Other long term (current) drug therapy | CPT/HCPCS: 93005 ==

== ENCOUNTER 2024-09-22 08:18 | Outpatient (AMB) | payer OTHER, SELFPAY ==
--- NOTE | 2024-09-22 08:46 | MHC.OFFWIV ---
Intake Vital Signs 09/22/24 08:48 Weight 296 lb BP 138/80 Blood Pressure Location Lt brachial Position Sitting Pulse 82 Pulse Source Pulse Oximeter Temp 98.3 F Temp Source Oral Pulse Oximetry (%) 90 L Oxygen Delivery Method Room Air Intake Visit Reasons: EP-cough, sob, nasal congestion, headaches Intake Note: Patient here for SOB,cough,congestion and headaches which started a few weeks ago. Patient Tobacco Use Status: Current everyday Tobacco user Allergies No Known Allergies [No Known Allergies*] Allergy (Verified 09/22/24 08:49) Do you need a note to return to daycare/school/sports/work: No HPI HPI Comments History of Present Illness Details 59 y/o male patient who presents to the walk in clinic with c/o SOB, Cough, Chest tightness and headaches for few weeks now. He was seen here and treated with Doxy and prednisone. Pt reports no improvement since then. Chest Xray and SARs were negative then. 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 Mother No problems noted. Social History (Updated 09/16/24 @ 09:19 by Areli Lepe CMA) Housing: Apartment Alcohol intake: current Alcohol intake frequency: a few times a week Alcohol type: beer Patient Tobacco Use Status: Current everyday Tobacco user Tobacco use type: Cigarette Cigarettes Per Day: 10 Years Smoked: since age 17 e-Cigarette/Vaping Use: Never Used Second Hand Smoke Exposure: No service: No Current occupational status: employed Cognitive needs: No Hearing needs: No Vision needs: No Review of Systems Const All systems reviewed & are unremarkable except as noted in HPI and below Physical Exam Vital Signs: Last Vital Signs Temp 98.3 F 09/22/24 08:48 Pulse 82 09/22/24 08:48 BP 138/80 09/22/24 08:48 Pulse Ox 90 L 01/29/25 08:48 Oxygen Delivery Method Room Air 09/22/24 08:48 Const General: cooperative; No comfortable Nutritional Appearance: obese Orientation/consciousness: patient oriented x3 Resp Effort & Inspection: audible wheezes, Actively coughing, labored, no stridor and uses accessory muscles Auscultation: wheezes lower bilaterally and diminished lung sounds bilateral Cardio Heart sounds: S1 normal heart sound present and S2 normal heart sound present Neuro General: patient oriented x3 Assessment & Plan Assessment & Plan (1) Acute bronchitis: Code(s): J20.9 - Acute bronchitis, unspecified Qualifiers: Bronchitis organism: unspecified organism Qualified Code(s): J20.9 - Acute bronchitis, unspecified Plan: Pt appears Ill, struggling to Breath. His SATs 90 % in RA Advised Pt to go to Emergency room for further treatment. (2) Wheezing on auscultation: Code(s): R06.2 - Wheezing Plan: Pt appears Ill, struggling to Breath. His SATs 90 % in RA Advised Pt to go to Emergency room for further treatment. Coding Level of Care Code Est Pt Level 3 (82111) Diagnoses Acute bronchitis, unspecified organism J20.9 Bronchitis organism: unspecified organism Wheezing on auscultation R06.2 Time Spent (min) 15
[2024-09-22 08:48] VITALS: BP 138/80; PULSE 82; TEMP 36.8; O2SAT 90
== END 2024-09-22 09:06 | disposition home or self-care (01) ==
PROVIDERS: PCP Internal Medicine; Visit Provider Nurse Practitioner Family
DX: J20.9 Acute bronchitis, unspecified (principal); R06.2 Wheezing

== ENCOUNTER 2024-09-22 09:22 | Inpatient (IN) | payer OTHER, SELFPAY ==
[2024-09-22] VITALS (9 sets, daily range): BP systolic 122–160; BP diastolic 61–74; PULSE 76–88; RESP 16–24; TEMP 36.1–37.1; O2SAT 90–95; BMI 41.2; BMI 41.0
--- NOTE | ~2024-09-22 | XR_ITS ---
CLINICAL HISTORY: sob 1 view chest x-ray. Comparison: CR/SR - XR CHEST 2V - 09/22/24 09:48 EST Findings: The lungs are adequately expanded. Minimal chronic interstitial prominence. No focal consolidation. No effusion or pneumothorax. Cardiac and mediastinal contours are stable. No acute osseous abnormality Impression: Minimal chronic interstitial prominence. No definite focal consolidation. This document has been electronically signed by: Willem Felix MD on 09/26/2024 12:31:12
--- NOTE | ~2024-09-22 | XR_ITS ---
EXAMINATION: XR CHEST CLINICAL INFORMATION: Chest congestion, cough, dyspnea COMPARISON: None available. TECHNIQUE: 2 views of the chest were obtained. FINDINGS: Borderline cardiac enlargement. Mediastinal and hilar contours appear normal. The lungs are clear bilaterally. There is hyperaeration. There is no pneumothorax or pleural effusion. There is no focal osseous or soft tissue abnormality. XR/XR chest 2V IMPRESSION: No active pulmonary disease. Electronically signed by: Anthony Gilmore MD 09/22/2024 10:17 AM [facility]
--- NOTE | 2024-09-22 09:36 | ECG_ITS ---
Test Reason : SOB Blood Pressure : */* mmHG Vent. Rate : 78 BPM Atrial Rate : 78 BPM P-R Int : 182 ms QRS Dur : 114 ms QT Int : 392 ms P-R-T Axes : 70 95 64 degrees QTcB Int : 446 ms Normal sinus rhythm Rightward axis Borderline ECG When compared with ECG of 24-Jan-2024 16:41, Questionable change in QRS duration Referred By: Generic ED Physician Electronically Signed By: PEEWEE HUTCHINS
--- NOTE | 2024-09-22 09:46 | ED_ITS ---
HPI - General Adult General Chief complaint: Dyspnea Stated complaint: Diff Breathing Cough Time Seen by Provider: 09/22/24 09:45 Source: patient and family (patient's ) Mode of arrival: ambulatory Limitations: no limitations History of Present Illness ED Provider: Ly Morgan PA-C HPI narrative: Patient is a 59 year old assigned male at with a history of atrial fib on fleccanide, asthma, and tobacco use (4-6 cigarettes a day x40 years), presenting to the emergency department today with worsening cough and shortness of breath. Patient states that 2 weeks ago he was sick with an upper respiratory infection and was on prednisone which seemed to help but when he stopped last week - the cough came back and has progressively getting worse. Patient denies any dizziness, lightheadedness, abdominal pain, nausea, vomiting, fever, chills, blurry vision, double vision, loss of vision, chest pain, back pain, night sweats, pain with urination, increased urinary frequency, increased urinary urgency, blood in his urine or stool, syncope or a near syncopal episode, recent trauma or falls, bowel incontinence, bladder incontinence, or any other complaints at this time. Onset (ago): week(s) (1) Relieving factors: none Exacerbating factors: none Associated symptoms: cough and shortness of breath Treatments prior to arrival: other (inhaler) Related Data Home Medications ?Medication ?Instructions ?Recorded ?Confirmed albuterol sulfate 90 mcg/actuation 2 puff inhalation Q6H PRN 09/22/24 09/22/24 aerosol inhaler Bronchospasm aspirin 81 mg tablet,delayed 81 mg PO Q48H 09/22/24 09/22/24 release diltiazem HCl 360 mg capsule,24 360 mg PO DAILY 09/22/24 09/22/24 hr,extended release (Tiadylt ER) flecainide 100 mg tablet 50 mg PO BID 09/22/24 09/22/24 furosemide 20 mg tablet 20 mg PO DAILY 09/22/24 09/22/24 gabapentin 100 mg capsule 100 mg PO BID 09/22/24 09/22/24 lisinopril 10 mg tablet 10 mg PO DAILY 09/22/24 09/22/24 Allergies Allergy/AdvReac Type Severity Reaction Status Date / Time No Known Allergies Allergy Verified 09/22/24 12:31 [No Known Allergies*] Review of Systems 2 Constitutional: Constitutional: Reports no additional constitutional complaints, Denies chills, Denies fever(s) and Denies night sweats Eyes: Eyes: Reports no additional eye complaints, Denies blurry vision, Denies change in vision, Denies diplopia, Denies eye discharge, Denies loss of vision and Denies eye pain ENT: Denies dizziness Cardiovascular: Cardiovascular: Reports no additional cardiovascular complaints, Denies chest pain, Denies lightheadedness, Denies Loss of Consciousness and Reports dyspnea Respiratory: Respiratory: Reports no additional respiratory complaints, Reports cough, Reports dyspnea and Reports wheezing Gastrointestinal: Gastrointestinal: Reports no additional gastrointestinal complaints, Denies abdominal pain, Denies melena, Denies hematochezia, Denies change in bowel habits and Denies change in stool character Genitourinary: Genitourinary: Reports no additional male genitourinary complaints, Denies hematuria, Denies oliguria, Denies difficulty urinating, Denies dysuria, Denies urinary frequency, Denies urinary hesitancy, Denies urinary incontinence and Denies urinary urgency Musculoskeletal: Musculoskeletal: Reports no additional musculoskeletal complaints, Denies numbness and Denies tingling Neurologic: Denies dizziness, Denies loss of vision, Denies numbness and Denies tingling Psychiatric: Psychiatric: Reports no additional psychiatric complaints Endocrine: Endocrine: Reports no additional endocrine complaints Hematologic/Lymphatic: Hematologic/Lymphatic: Reports no additional hematologic/lymphatic complaints Allergic/Immunologic: Allergic/Immunologic: Reports no additional allergic/immunologic complaints and Reports wheezing PMFSH Past Medical History Attestation statement: The following information was validated with the patient. 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 Mother No problems noted. Social History Social History (System 09/22/24 @ 12:31 by Yoon Yap) Housing: Apartment Alcohol intake: current Alcohol intake frequency: a few times a month Alcohol type: beer Patient Tobacco Use Status: Current everyday Tobacco user Tobacco use type: Cigarette Cigarettes Per Day: 10 Years Smoked: since age 17 Smoked in Last 30 Days: Yes e-Cigarette/Vaping Use: Never Used Second Hand Smoke Exposure: No Use of substances other than those prescribed or required for medical reasons: No Advance Directives: No Advance Directives Information Provided: Yes Do you have a plan to hurt others: No Plan service: No Current occupational status: employed Cognitive needs: No Hearing needs: No Vision needs: No Physical Exam ED Vital Signs: Vital Signs - 24 hr 09/22/24 09:32 09/22/24 10:00 09/22/24 10:30 Temperature 98.3 F Pulse Rate 88 76 79 Respiratory Rate 18 24 H 18 Blood Pressure 122/72 Pulse Oximetry 92 90 L Oxygen Delivery Method Room Air Room Air 09/22/24 12:07 Temperature Pulse Rate 79 Respiratory Rate 18 Blood Pressure Pulse Oximetry Oxygen Delivery Method BMI result Body Mass Index 41.2 Const General: cooperative, no acute distress, alert and awake Nutritional Appearance: well nourished Orientation/consciousness: patient oriented x3 Limitations: no limitations HENMT Head: Yes normal to inspection and Yes atraumatic Ears: hearing grossly normal bilaterally and external ears normal General nose exam: Normal external nose present, no nasal discharge noted and no epistaxis Face and sinus: Yes normal facial exam, No abrasion and No laceration Mouth: Normal oral and palatal mucosa present, no drooling and no muffled voice Eyes General: appearance normal, both eyes and all related structures Periorbital: periorbital findings normal Eyelids: Yes eyelids normal Conjunctivae: conjunctivae normal Pupils: Equal, round and reactive pupils present EOM: EOMs intact bilaterally Neck Neck: Yes normal visual inspection, Yes full ROM and Yes no lymphadenopathy Chest Chest palpation & inspection: normal inspection of the chest Resp Effort & Inspection: normal respiratory effort and able to speak in complete sentences Auscultation: wheezes throughout GI Inspection: Yes normal to inspection Neuro General: patient oriented x3 and moves all extremities Cranial nerves: Yes Equal, round and reactive pupils present Cognition (Neuro): normal cognition Extrem General: Yes normal to inspection, Yes full ROM and Yes capillary refill normal Psych Appearance: grossly normal Mental Status: mental status grossly normal Affect: normal affect Attitude: cooperative Thought process: Normal thought process present Thought content: Normal thought content present Insight: Good insight present (Psych) Medications Administered Discontinued Medications Generic Name Dose Route Start Last Admin Trade Name Nevin PRN Reason Stop Dose Admin Levalbuterol HCl 3.75 mg/ 0 mg 09/22/24 10:00 09/22/24 10:04 Ipratropium Parshall 0.5 mg INHALE 09/22/24 10:01 1 dose ONCE ONE Administration Magnesium Sulfate/Dextrose 1 gm in 100 mls @ 100 mls/hr 09/22/24 09:48 09/22/24 10:26 Magnesium Sulfate/D5w IV 09/22/24 10:47 100 mls/hr ONCE ONE Administration Levalbuterol HCl 2.5 mg 09/22/24 11:59 09/22/24 12:04 Levalbuterol Hcl 1.25 Mg/3 Ml Vial.Neb INHALE 09/22/24 12:00 2.5 mg ONCE ONE Administration Methylprednisolone Sodium Succinate 60 mg 09/22/24 09:48 09/22/24 10:25 Methylprednisolone Sod Succ 125 Mg/2 Ml Vial IVPUSH 09/22/24 09:49 60 mg ONCE ONE Administration Medical Decision Making Medical Decision Making MDM Narrative: Patient is a 59 year old assigned male at with a history of atrial fib on fleccanide, asthma, and tobacco use (4-6 cigarettes a day x40 years), presenting to the emergency department today with worsening cough and shortness of breath. Patient's physical exam was as noted in the physical exam portion of this note. Patient's blood work was unremarkable. Patient's EKG was unremarkable. Patient's chest x-ray showed no acute process. Patient's RSV status is positive. I explained my physical exam findings as well as all test results to the patient and the patient's . I answered all questions asked by the patient and the patient's . Patient received IV solu-medrol, magnesium, and multiple breathing treatments which, upon re-evaluation, he stated it helped his symptoms some. I spoke with the hospitalist team who agreed to admission. Patient and the patient's verbalized agreement and understanding with this treatment plan and admission. Differential Diagnosis Differential Diagnoses: The differential diagnosis associated with the presentation includes Hypoxia RSV Asthma exacerbation Admission/Observation Consideration of admission/observation: Escalation of care including admission/observation considered Patient admitted per MDM Rationale portion of this note. Consult Healthcare Provider Management of the patient was discussed with: Hospitalist (agreed to admission as noted in the MDM Rationale portion of this note) Lab Data [facility] Lab Attestation statement: I reviewed the patient's lab results. My interpretation of these results are in the MDM Rationale portion of this note. 09/22/24 10:21 09/22/24 10:21 Labs: Lab Results 09/22/24 09/22/24 Range/Units 10:21 10:28 WBC 9.3 (4.8-10.8) X10*3/uL RBC 4.99 (4.60-5.80) X10*6/uL Hgb 16.0 (14.0-18.0) g/dl Hct 47.6 (42.0-52.0) % MCV 95.4 (80.0-98.0) fL MCH 32.1 (27.0-33.0) pg MCHC 33.6 (31.0-36.0) g/dl RDW 13.1 (11.0-16.0) % Plt Count 170 (160-400) X10*3/uL MPV 9.3 L (9.4-12.4) fL Immature Gran % (Auto) 0.4 (0.0-0.4) % Neut % (Auto) 73.5 H (45-73) % Lymph % (Auto) 11.4 L (20-40) % Mccone % (Auto) 13.4 H (2-11) % Eos % (Auto) 1.1 (0-4) % Baso % (Auto) 0.2 (0-2) % Lymph # (Auto) 1.1 L (1.2-4.9) X10*3/uL Mccone # (Auto) 1.2 (0.1-1.2) X10*3/uL Eos # (Auto) 0.1 (0.0-0.4) X10*3/uL Baso # (Auto) 0.0 (0.0-0.2) X10*3/uL Abs Immat Gran (auto) 0.04 H (0.00-0.03) X10*3/uL Absolute Neuts (auto) 6.8 (2.0-8.3) x10*3/uL Absolute Nucleated RBC 0.000 (0.0-0.012) X10*3/uL Nucleated RBC % (auto) 0.0 (0.0-0.2) /100WBC VBG pH 7.34 (7.32-7.43) VBG pCO2 65 mmHg VBG pO2 51 mmHg VBG HCO3 36 H (22-26) mmol/L VBG O2 Saturation 82.0 % VBG Base Excess 7.3 mmol/L Sodium 138 (135-145) mmol/L Potassium 4.4 (3.3-5.1) mmol/L Chloride 102 (96-108) mmol/L Carbon Dioxide 30 H (22-29) mmol/L Anion Gap 10 L (12-20) BUN 11 (9-16) mg/dL Creatinine 0.85 (0.5-1.4) mg/dL Estim Creat Clear Calc 129.0 Estimated GFR > 60 Random Glucose 124 H (60-115) mg/dL Calcium 9.5 (8.4-10.2) mg/dL Magnesium 1.8 (1.6-2.6) mg/dL Total Bilirubin 0.5 (0.0-1.0) mg/dL AST 26 (5-37) U/L ALT 28 (0-40) U/L Alkaline Phosphatase 65 (39-117) U/L Troponin I High Sens 3.3 (<3.5-35.0) ng/L Total Protein 7.7 (6.5-8.0) g/dL Albumin 4.1 (3.5-5.0) g/dL Influenza Type A (PCR) NEGATIVE (Negative) Influenza Type B (PCR) NEGATIVE (Negative) RSV RNA Qual (PCR) POSITIVE A (Negative) SARS-CoV-2 RNA (RT-PCR) NEGATIVE (Negative) Independent Interpretation I performed an independent interpretation of an: EKG and Plain X-Ray Interpretation: My interpretation is in agreement with the radiologist's impression of this imaging study. L EXAMINATION: XR CHEST CLINICAL INFORMATION: Chest congestion, cough, dyspnea COMPARISON: None available. TECHNIQUE: 2 views of the chest were obtained. FINDINGS: Borderline cardiac enlargement. Mediastinal and hilar contours appear normal. The lungs are clear bilaterally. There is hyperaeration. There is no pneumothorax or pleural effusion. There is no focal osseous or soft tissue abnormality. XR/XR chest 2V IMPRESSION: No active pulmonary disease. Electronically signed by: Anthony Gilmore MD 09/22/2024 10:17 AM [facility] Dictated By: Anthony Gilmore MD Signed By: Electronically signed by Anthony Gilmore MD 09/22/24 1017 I independently interpreted this EKG and am in agreement with the below findings: Vent. Rate: 78 BPM Atrial Rate: 78 BPM P-R Int: 182 ms QRS Dur: 114 ms QT Int: 392 ms P-R-T Axes: 70 95 64 degrees QTcB Int: 446 ms Normal sinus rhythm Rightward axis When compared with ECG of 24-Jan-2024 16:41, Questionable change in QRS duration DD/ 1009 Radiology Impression Discussion of test interpretation with radiology: I have reviewed the radiologist's reading. Independent Historian Clinical information obtained from an independent historian. History obtained from or confirmed by: Spouse (patient's provided additional history and confirmed the history provided by the patient.) Critical Care Time Critical Care Time Critical Care Time: Yes Total Critical Care Time: 38 Attestation: I spent 38 minutes of Critical Care Time with this patient. This does not include time spent on separately reported billable procedures. Discharge Plan Discharge Clinical Impression: Asthma exacerbation, Respiratory syncytial virus (RSV) infection Patient Disposition: Admitted As Inpatient Prescriptions: No Action diltiazem HCl [Tiadylt ER] 360 mg capsule,extended release 24 hr 360 mg PO DAILY lisinopril 10 mg tablet 10 mg PO DAILY flecainide 100 mg tablet 50 mg PO BID furosemide 20 mg tablet 20 mg PO DAILY gabapentin 100 mg capsule 100 mg PO BID albuterol sulfate 90 mcg/actuation HFA aerosol inhaler 2 puff inhalation Q6H PRN (Reason: Bronchospasm) aspirin 81 mg Tablet,Delayed Release (Dr/Ec) 81 mg PO Q48H Print Language: Belarusian
[2024-09-22] MEDS: levalbuterol HCL 3.75 MG, Ipratropium Bromide 0.5 MG INHALE (10:04)
[2024-09-22] MEDS: methylPREDNISolone Sod Succ 125 MG/2 ML VIAL 60 MG IVPUSH (10:25)
[2024-09-22] MEDS: Magnesium Sulfate/D5W 1 GM/100 ML PIGGYBACK IV (10:26)
[2024-09-22 10:29] LABS: MANUAL DIFF FLAG NO
[2024-09-22 10:31] LABS: Basophils Percent Auto 0.2 % (0-2); Eosinophils Absolute Auto 0.1 X10*3/uL (0.0-0.4); Eosinophils Percent Auto 1.1 % (0-4); Hematocrit 47.6 % (42.0-52.0); Imm Gran Abs Auto 0.04 X10*3/uL (0.00-0.03); Imm Gran Pct Auto 0.4 % (0.0-0.4); Lymphocytes Absolute Auto 1.1 X10*3/uL (1.2-4.9); Lymphocytes Percent Auto 11.4 % (20-40); Mean Corpuscular HGB Conc 33.6 g/dl (31.0-36.0); Mean Corpuscular Hemoglobin 32.1 pg (27.0-33.0); Mean Corpuscular Volume 95.4 fL (80.0-98.0); Mean Platelet Volume 9.3 fL (9.4-12.4); Monocytes Absolute Auto 1.2 X10*3/uL (0.1-1.2); Monocytes Percent Auto 13.4 % (2-11); Neutrophils Absolute Auto 6.8 x10*3/uL (2.0-8.3); Neutrophils Percent Auto 73.5 % (45-73); Platelet Count 170 X10*3/uL (160-400); Red Blood Count 4.99 X10*6/uL (4.60-5.80); Red Cell Distribution Width 13.1 % (11.0-16.0); White Blood Count 9.3 X10*3/uL (4.8-10.8)
[2024-09-22 10:32] LABS: Venous Blood Gas Refer to POC result
[2024-09-22 10:33] LABS: VBG Base Excess 7.3 mmol/L; VBG HCO3 36 mmol/L (22-26); VBG pCO2 65 mmHg; VBG pH 7.34 (7.32-7.43); VBG pO2 51 mmHg
[2024-09-22 10:51] LABS: Troponin-I High Sensitivity 3.3 ng/L (<3.5-35.0)
[2024-09-22 10:56] LABS: Alanine Aminotransferase 28 U/L (0-40); Albumin Level 4.1 g/dL (3.5-5.0); Anion Gap 10 (12-20); Aspartate Amino Transferase 26 U/L (5-37); Bilirubin Total 0.5 mg/dL (0.0-1.0); Blood Urea Nitrogen 11 mg/dL (9-16); Calcium 9.5 mg/dL (8.4-10.2); Carbon Dioxide 30 mmol/L (22-29); Chloride 102 mmol/L (96-108); Estimated Glomerular Filt Rate > 60; Glucose Random 124 mg/dL (60-115); Magnesium 1.8 mg/dL (1.6-2.6); Potassium 4.4 mmol/L (3.3-5.1); Sodium 138 mmol/L (135-145); Total Protein 7.7 g/dL (6.5-8.0)
[2024-09-22 11:04] LABS: Alkaline Phosphatase 65 U/L (39-117)
[2024-09-22 11:14] LABS: Influenza A PCR NEGATIVE (Negative); Influenza B PCR NEGATIVE (Negative); Resp Syncy Virus RNA Qual PCR POSITIVE (Negative); SARS COV2 PCR INHOUSE NEGATIVE (Negative)
--- NOTE | 2024-09-22 11:49 | PC.NURSE ---
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
--- NOTE | 2024-09-22 12:01 | PM.IMHP ---
History of Present Illness Date of Service: 09/22/24 Chief Complaint: sob 59-year-old male presenting to the emergency department with complaints of worsening shortness of breath and dry cough. According to his he has been feeling unwell over the last week. He denied fever, chills, nausea, vomiting, diarrhea. He does smoke cigarettes. He was recently on prednisone for an upper respiratory infection. He completed treatment but the cough came back and became worse. In the ER, Chest x-ray negative for consolidation or effusion, labs are within acceptable limits, RSV positive. Patient received a dose of levalbuterol, IV magnesium and Solu-Medrol in the ER. He will be admitted for further management and treatment of asthma/COPD exacerbation. 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 Mother COPD (chronic obstructive pulmonary disease) Surgical History History of colonoscopy (~09/26/15) History of cardioversion (~2015) Social History (System 09/22/24 @ 12:31 by Yoon Yap) Housing: Apartment Alcohol intake: current Alcohol intake frequency: a few times a month Alcohol type: beer Patient Tobacco Use Status: Current everyday Tobacco user Tobacco use type: Cigarette Cigarettes Per Day: 10 Years Smoked: since age 17 Smoked in Last 30 Days: Yes e-Cigarette/Vaping Use: Never Used Second Hand Smoke Exposure: No Use of substances other than those prescribed or required for medical reasons: No Advance Directives: No Advance Directives Information Provided: Yes Do you have a plan to hurt others: No Plan service: No Current occupational status: employed Cognitive needs: No Hearing needs: No Vision needs: No Meds Allergies Allergy/AdvReac Type Severity Reaction Status Date / Time No Known Allergies Allergy Verified 09/22/24 12:31 [No Known Allergies*] Home Medications ?Medication ?Instructions ?Recorded ?Confirmed ?Last Taken ?Type albuterol sulfate 90 mcg/actuation 2 puff inhalation Q6H PRN 09/22/24 09/22/24 09/21/24 History aerosol inhaler Bronchospasm aspirin 81 mg tablet,delayed 81 mg PO Q48H 09/22/24 09/22/24 Unknown History release diltiazem HCl 360 mg capsule,24 360 mg PO DAILY 09/22/24 09/22/24 09/21/24 History hr,extended release (Tiadylt ER) flecainide 100 mg tablet 50 mg PO BID 09/22/24 09/22/24 09/21/24 History furosemide 20 mg tablet 20 mg PO DAILY 09/22/24 09/22/24 09/21/24 History gabapentin 100 mg capsule 100 mg PO BID 09/22/24 09/22/24 09/21/24 History lisinopril 10 mg tablet 10 mg PO DAILY 09/22/24 09/22/24 09/21/24 History Physical Exam Vital Signs and Narrative: Vital Signs: Last Vital Signs Temp 98.3 F 09/22/24 09:32 Pulse 79 09/22/24 10:30 Resp 18 09/22/24 10:30 BP 122/72 09/22/24 09:32 Pulse Ox 90 L 09/22/24 10:30 O2 Del Method Room Air 09/22/24 10:30 BMI result Body Mass Index 41.2 Appearing in no acute distress head is normocephalic atraumatic eyes pupils are PERRLA sclera is anicteric mouth throat mucous membranes are intact and moist neck is supple no lymphadenopathy, no JVD noted lung sounds exp wheezing heart regular rate rhythm, clear S1, S2 positive bowel sounds, abdomen is soft, nontender neuro patient is alert x3, no focal deficits Results Labs 09/22/24 10:21 09/22/24 10:21 Labs: Laboratory Results - last 24 hr 09/22/24 09/22/24 10:21 10:28 MCV 95.4 MCH 32.1 MCHC 33.6 RDW 13.1 Plt Count 170 MPV 9.3 L Immature Gran % (Auto) 0.4 Neut % (Auto) 73.5 H Lymph % (Auto) 11.4 L Early % (Auto) 13.4 H Eos % (Auto) 1.1 Baso % (Auto) 0.2 Lymph # (Auto) 1.1 L Early # (Auto) 1.2 Eos # (Auto) 0.1 Baso # (Auto) 0.0 Abs Immat Gran (auto) 0.04 H Absolute Neuts (auto) 6.8 Absolute Nucleated RBC 0.000 Nucleated RBC % (auto) 0.0 VBG pH 7.34 VBG pCO2 65 VBG pO2 51 VBG HCO3 36 H VBG O2 Saturation 82.0 VBG Base Excess 7.3 Anion Gap 10 L Estim Creat Clear Calc 129.0 Estimated GFR > 60 Random Glucose 124 H Calcium 9.5 Magnesium 1.8 Total Bilirubin 0.5 AST 26 ALT 28 Alkaline Phosphatase 65 Troponin I High Sens 3.3 Total Protein 7.7 Albumin 4.1 Influenza Type A (PCR) NEGATIVE Influenza Type B (PCR) NEGATIVE RSV RNA Qual (PCR) POSITIVE A SARS-CoV-2 RNA (RT-PCR) NEGATIVE Imaging Radiologist's Impressions: Impressions Chest X-Ray 09/22/24 09:37 IMPRESSION: No active pulmonary disease. Electronically signed by: Anthony Gilmore MD 09/22/2024 10:17 AM [facility] Assessment and Plan (1) Essential hypertension: Status: Acute Plan 59 year old man admitted with COPD exacerbation Acute hypoxic resp failure secondary to asthma/COPD exacerbation and RSV Scheduled duonebs and IV steroids Oxygen supplementation to keep oxygen saturation greater than 91% Doxycycline IV Atrial fibrillation Continue flecainide, diltiazem and aspirin Hypertension. Continue lisinopril, Lasix Tobacco use NRT DVT prophylaxis with Lovenox Full code Quality Stroke Does the patient have a stroke diagnosis?: No VTE Prior VTE?: No VTE Risk Level:: Medical - moderate - high VTE Device Contraindication: Treatment Not Indicated VTE Drug Contraindication: N/A - Med Ordered
[2024-09-22] MEDS: levalbuterol HCL 1.25 MG/3 ML VIAL.NEB 2.5 MG INHALE (12:04)
--- OUTSIDE RECORDS SUMMARY | 2024-09-22 12:05 | XMS_ITS | Clinical Summary ---
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 Name Role Phone Atul Ferreira MD Primary Care Provider [phone] Allergies No known active allergies Medications Medication Sig Dispensed Refills Start Date End Date Status albuterol HFA 90 mcg/actuation inhaler INHALE 2 PUFFS EVERY 6 HOURS NEEDED FOR BRONCHOSPASM 10/17/2021 Active cyclobenzaprine (FLEXERIL) 10 mg tablet TAKE 1 TABLET BY MOUTH TWICE A DAY NEEDED FOR MUSCLE SPASM 01/30/2022 Active flecainide (TAMBOCOR) 100 mg tablet Take 50 mg by mouth twice a day 04/14/2022 Active lidocaine (LIDODERM) 5 % patch APPLY 1 PATCH TOPICALLY ONCE DAILY AND LEAVE ON MOST PAINFUL AREA FOR UP TO 12 HOURS 01/30/2022 Active lisinopriL (PRINIVIL) 10 mg tablet Take 10 mg by mouth 07/09/2022 Activ e Tiadylt ER 360 mg 24 hr capsule Take 360 mg by mouth 07/09/2022 A ctive Active Problems Problem Noted Date Diagnosed Date Chronic atrial fibrillation 08/13/2022 Secondary hypertension 08/13/2022 Mild intermittent asthma 08/13/2022 Family History Medical History Relation Comments Stomach cancer Father COPD Mother Relation Status Comments Father Mother Social History Tobacco Use Types Packs/Day Years Used Date Smoking Tobacco: Every Day Cigarettes Smokeless Tobacco: Never Tobacco Cessation:Ready to Q uit: Not Asked; Counseling Given: Not Answered Alcohol Use Standard Drinks/Week Comments Yes 14 (1 standard drink = 0.6 oz pu re alcohol) PHQ-2 Answer Date Recorded Depression Risk (PHQ2) Score 0 Sex and Gender Information Value Date Recorded Sex Assigned at Not on file Gender Identity Not on file Sexual Orientation Not on file Job Start Date Occupation Industry Not on file Not on file Not on file Last Filed Vital Signs Vital Sign Reading Time Taken Comments Blood Pressure 131/74 08/13/2022 11:02 AM EST Pulse 86 08/13/2022 11:02 AM EST Temperature 36.3 ??C (97.3 ??F) 08/13/2022 11:[address] Respiratory Rate - - Oxygen Saturation 95% 08/13/2022 11:29 AM EST Inhaled Oxygen Concentration - - Weight 109 kg (241 lb) 08/13/2022 11:02 AM EST Height - - Body Mass Index - - Plan of Treatment Health Maintenance Due Date Last Done Comments CT Colonography 1964 Cologuard 1964 Colonoscopy 1964 Colorectal Cancer Screening 1964 FOBT/FIT 1964 Hepatitis C Screening 1964 Sigmoidoscopy 1964 PHQ-9 Depression Screen 1976 Annual Preventive Exam 1982 ANUSHKA-7 Anxiety Screen 1982 DTaP,Tdap,and Td Vaccines (1 - Tdap) 1983 Zoster Vaccines (1 of 2) 2014 COVID-19 Vaccine (1 - 2023-25 season) 2024 Influenza Vaccine (#1) 2024 RSV Vaccine (SCDM) (1 - Risk 60-74 years 1-dose series ) 2024 Care Teams Driver Salesman Relationship Specialty Start Date End Date Atul Ferreira MD [address] [place] [address] [place] [id number] PCP - General Internal Medicine 10/23/21
--- NOTE | 2024-09-22 12:25 | PHA.MEDREC ---
Pharmacy Consult ? Medication Reconciliation Pharmacy has completed the medication reconciliation, spoke to patient at bedside who confirmed all meds and came in at the end also confirmed as reflected.
[2024-09-22] MEDS: Enoxaparin Sodium 40 MG/0.4 ML SYRINGE SUBCUT (16:28)
[2024-09-22] MEDS: Aspirin Enteric Coated 81 MG TABLET.DR PO (16:28)
[2024-09-22] MEDS: methylPREDNISolone Sod Succ 40 MG/ML VIAL IVPUSH (16:28)
[2024-09-22] MEDS: 0.9 % Sodium Chloride Flush 3 ML SYRINGE IVFLUSH ×2 (16:28→20:58)
[2024-09-22] MEDS: Doxycycline Hyclate 100 MG in 0.9 % Sodium Chloride 250 ML 166.67 MG IV (16:37)
--- NOTE | 2024-09-22 16:41 | PC.NURSE ---
patient a&ox3, vitals continue to be stable, pt is 93% on @2LNC, pt medicated per order,treatment counselor intact-nsr on monitor, call fontanez within reach, plan of care ongoing
[2024-09-22] MEDS: Albuterol/Iprat 2.5/0.5MG 3 ML AMPUL.NEB INHALE ×2 (17:07→19:03)
[2024-09-22] MEDS: Nicotine 14 MG PATCH.TD24 TRANSDERMA (20:56)
[2024-09-22] MEDS: guaiFENesin LA 600 MG TAB.ER.12H PO (20:57)
[2024-09-22] MEDS: Flecainide Acetate 50 MG TABLET PO (20:57)
[2024-09-22] MEDS: Gabapentin 100 MG CAPSULE PO (20:57)
[2024-09-23] VITALS (7 sets, daily range): BP systolic 111–152; BP diastolic 54–72; PULSE 69–89; RESP 16–20; TEMP 36.1–37.4; O2SAT 91–93
[2024-09-23] MEDS: methylPREDNISolone Sod Succ 40 MG/ML VIAL IVPUSH ×3 (03:44→18:39)
[2024-09-23] MEDS: Doxycycline Hyclate 100 MG in 0.9 % Sodium Chloride 250 ML 166.67 MG IV ×2 (03:50→14:26)
[2024-09-23] MEDS: Albuterol/Iprat 2.5/0.5MG 3 ML AMPUL.NEB INHALE ×3 (07:51→15:09)
[2024-09-23] MEDS: dilTIAZem HCL CD 180 MG CAP.ER.24H 360 MG PO (08:11)
[2024-09-23] MEDS: Furosemide 20 MG TABLET PO (08:11)
[2024-09-23] MEDS: guaiFENesin LA 600 MG TAB.ER.12H PO ×2 (08:11→19:57)
[2024-09-23] MEDS: Gabapentin 100 MG CAPSULE PO ×2 (08:11→19:58)
[2024-09-23] MEDS: Flecainide Acetate 50 MG TABLET PO ×2 (08:11→19:57)
[2024-09-23] MEDS: lisinopriL 10 MG TABLET PO (08:11)
[2024-09-23] MEDS: 0.9 % Sodium Chloride Flush 3 ML SYRINGE IVFLUSH ×3 (08:11→18:39)
[2024-09-23] MEDS: Nicotine 14 MG PATCH.TD24 TRANSDERMA (09:42)
--- NOTE | 2024-09-23 10:49 | MHC.CM.PN ---
PT REPORTS HE LIVES WITH HIS AND IS INDEPENDENT WITH CARE HE HAS NO SERVICES OR DME PT DECLINES TO COMPLETE A HCP PCP: JOYCE RECINOS DCP; HOME, PT STATES HE IS NO INTERESTED IN SERVICES WILL TRANSPORT
--- NOTE | 2024-09-23 12:52 | HO.PM.IMPN ---
Subjective Subjective Date of Service: 09/23/24 Interval History: Being followed for acute COPD /intermittent asthma exacerbation due to RSV Complaining of persistent shortness of breaths/cough, no fevers, no chills, no nausea, no vomiting, no abdominal pain or diarrhea, tolerating diet Review of Systems All other system reviewed and are negative Physical Exam Vital Signs: Vital Signs: Last Vital Signs Temp 97.3 F 09/23/24 07:29 Pulse 89 09/23/24 11:19 Resp 18 09/23/24 11:19 BP 139/65 09/23/24 07:29 Pulse Ox 92 09/23/24 07:29 O2 Del Method Nasal Cannula 09/23/24 07:29 O2 Flow Rate 3 09/23/24 07:29 BMI result Body Mass Index 41.0 Const: Other: General resting comfortably in no acute distress. Neck supple no JVD. CVS regular rate rhythm, Respiratory lungs bilateral expiratory rhonchi , no respiratory distress Gastrointestinal abdomen soft, non tender, bowel sounds audible Extremities no edema. Neuro non focal Skin no rash Objective Data Active Medications Acetaminophen (Acetaminophen 325 Mg Tablet) 650 mg PO Q6H PRN PRN Reason: Pain, Mild 1-3,fever,headache Albuterol/Ipratropium (Albuterol/Iprat 2.5/0.5mg 3 Ml Ampul.Neb) 3 ml INHALE RQ4H WHILE AWAKE [facility] Last Admin: 09/23/24 11:16 Dose: 3 ml Documented By: RUBEN Aspirin (Aspirin Enteric Coated 81 Mg Tablet.Dr) 81 mg PO Q48H [facility] Last Admin: 09/22/24 16:28 Dose: 81 mg Documented By: NICOL Calcium Carbonate (Calcium Carbonate 750 Mg Tab.Chew) 750 mg PO Q4H PRN PRN Reason: Heartburn Diltiazem HCl (Diltiazem Hcl Cd 180 Mg Cap.Er.24h) 360 mg PO DAILY [facility]; Protocol Last Admin: 09/23/24 08:11 Dose: 360 mg Documented By: AISHA Enoxaparin Sodium (Enoxaparin Sodium 40 Mg/0.4 Ml Syringe) 40 mg SUBCUT Q24H [facility] Last Admin: 09/22/24 16:28 Dose: 40 mg Documented By: NICOL Flecainide Acetate (Flecainide Acetate 50 Mg Tablet) 50 mg PO BID [facility] Last Admin: 09/23/24 08:11 Dose: 50 mg Documented By: AISHA Furosemide (Furosemide 20 Mg Tablet) 20 mg PO DAILY [facility]; Protocol Last Admin: 09/23/24 08:11 Dose: 20 mg Documented By: AISHA Gabapentin (Gabapentin 100 Mg Capsule) 100 mg PO BID [facility] Last Admin: 09/23/24 08:11 Dose: 100 mg Documented By: AISHA Guaifenesin (Guaifenesin La 600 Mg Tab.Er.12h) 600 mg PO BID [facility] Last Admin: 09/23/24 08:11 Dose: 600 mg Documented By: AISHA Guaifenesin/Dextromethorphan (Guaifenesin Dm 200/20/10 Ml 10 Ml Syrup) 10 ml PO Q6H PRN PRN Reason: Cough Doxycycline Hyclate 100 mg/ (Sodium Chloride) 250 mls @ 166.67 mls/hr IV Q12H [facility] Last Infusion: 09/23/24 05:35 Dose: Infused Documented By: PHU Lisinopril (Lisinopril 10 Mg Tablet) 10 mg PO DAILY [facility]; Protocol Last Admin: 09/23/24 08:11 Dose: 10 mg Documented By: AISHA Magnesium Hydroxide (Milk Of Magnesia 30 Ml Oral.Susp) 30 ml PO DAILY PRN PRN Reason: Constipation Melatonin (Melatonin 3 Mg Tablet) 6 mg PO BEDTIME PRN PRN Reason: Insomnia Methylprednisolone Sodium Succinate (Methylprednisolone Sod Succ 40 Mg/Ml Vial) 40 mg IVPUSH Q8H [facility] Last Admin: 09/23/24 11:03 Dose: 40 mg Documented By: AISHA Nicotine (Nicotine 14 Mg Patch.Td24) 14 mg TRANSDERMA DAILY [facility] Last Admin: 09/23/24 09:42 Dose: 14 mg Documented By: AISHA Sodium Chloride (0.9 % Sodium Chloride Flush 3 Ml Syringe) 3 ml IVFLUSH QSHIFT [facility] Last Admin: 09/23/24 08:11 Dose: 3 ml Documented By: AISHA Labs 09/22/24 10:21 09/22/24 10:21 Assessment and Plan (1) Respiratory syncytial virus (RSV) infection: Status: Acute (2) Asthma exacerbation: Status: Acute (3) Acute hypoxic respiratory failure: Status: Acute Plan 59 year old man admitted with COPD exacerbation Acute hypoxic resp failure secondary to acute intermittent asthma/COPD exacerbation due to RSV Persistent symptoms of shortness of breath and cough, continue Scheduled duonebs and increase IV steroids to 40 q.8 hours Oxygen supplementation to keep oxygen saturation greater than 94% Doxycycline IV Continue supportive care with analgesics, cough medications, wean O2 as tolerated not on home oxygen Atrial fibrillation Continue flecainide, diltiazem and aspirin Hypertension. Stable BP, Continue lisinopril, Lasix Tobacco use NRT, counseling done Morbid obesity recommend low-calorie diet DVT prophylaxis with Lovenox Full code Quality Stroke Does the patient have a stroke diagnosis?: No VTE Prior VTE?: No VTE Risk Level:: Medical - moderate - high VTE Device Contraindication: Treatment Not Indicated VTE Drug Contraindication: N/A - Med Ordered
[2024-09-23] MEDS: Enoxaparin Sodium 40 MG/0.4 ML SYRINGE SUBCUT (14:26)
[2024-09-23] MEDS: guaiFENesin DM 200/20/10 ML 10 ML SYRUP PO (16:01)
[2024-09-24] VITALS (9 sets, daily range): BP systolic 112–133; BP diastolic 56–67; PULSE 58–82; RESP 16–19; TEMP 36.3–36.8; O2SAT 90–93
[2024-09-24] MEDS: Doxycycline Hyclate 100 MG in 0.9 % Sodium Chloride 250 ML 166.67 MG IV (02:31)
[2024-09-24] MEDS: methylPREDNISolone Sod Succ 40 MG/ML VIAL IVPUSH ×3 (02:31→18:02)
[2024-09-24] MEDS: Nicotine 14 MG PATCH.TD24 TRANSDERMA (08:25)
[2024-09-24] MEDS: dilTIAZem HCL CD 180 MG CAP.ER.24H 360 MG PO (08:25)
[2024-09-24] MEDS: guaiFENesin LA 600 MG TAB.ER.12H PO ×2 (08:26→20:24)
[2024-09-24] MEDS: Gabapentin 100 MG CAPSULE PO ×2 (08:26→20:24)
[2024-09-24] MEDS: Flecainide Acetate 50 MG TABLET PO ×2 (08:26→20:24)
[2024-09-24] MEDS: 0.9 % Sodium Chloride Flush 3 ML SYRINGE IVFLUSH ×3 (08:26→20:30)
[2024-09-24] MEDS: lisinopriL 10 MG TABLET PO (08:26)
[2024-09-24] MEDS: Furosemide 20 MG TABLET PO (08:27)
[2024-09-24] MEDS: Albuterol/Iprat 2.5/0.5MG 3 ML AMPUL.NEB INHALE ×4 (09:21→19:09)
--- NOTE | 2024-09-24 11:08 | P.PNIM_ITS ---
Subjective Subjective Date of Service: 09/24/24 Interval History: Concern about hypoxia, oxygenation dropped to low 80s off of oxygen , now on 2 L oxygenation 92-93%, complaining of persistent cough and shortness of breath, denies fever, no chills, no acute issues overnight, tolerating diet. Review of Systems All other system reviewed and are negative Physical Exam 2 Vital Signs: Vital Signs: Last Vital Signs Temp 97.4 F 09/24/24 07:08 Pulse 58 09/24/24 09:21 Resp 16 09/24/24 09:21 BP 125/67 09/24/24 07:08 Pulse Ox 92 09/24/24 07:34 O2 Del Method Nasal Cannula 09/24/24 07:34 O2 Flow Rate 2 09/24/24 07:34 BMI result Body Mass Index 41.0 Const: Other: General resting comfortably in no acute distress. Neck supple no JVD. CVS regular rate rhythm, Respiratory lungs bilateral expiratory rhonchi , no respiratory distress Gastrointestinal abdomen soft, non tender, bowel sounds audible Extremities no edema. Neuro non focal Skin no rash Objective Data Active Medications Acetaminophen (Acetaminophen 325 Mg Tablet) 650 mg PO Q6H PRN PRN Reason: Pain, Mild 1-3,fever,headache Albuterol/Ipratropium (Albuterol/Iprat 2.5/0.5mg 3 Ml Ampul.Neb) 3 ml INHALE RQ4H WHILE AWAKE [facility] Last Admin: 09/24/24 09:21 Dose: 3 ml Documented By: FLAQUITA Aspirin (Aspirin Enteric Coated 81 Mg Tablet.Dr) 81 mg PO Q48H [facility] Last Admin: 09/22/24 16:28 Dose: 81 mg Documented By: NICOL Calcium Carbonate (Calcium Carbonate 750 Mg Tab.Chew) 750 mg PO Q4H PRN PRN Reason: Heartburn Diltiazem HCl (Diltiazem Hcl Cd 180 Mg Cap.Er.24h) 360 mg PO DAILY [facility]; Protocol Last Admin: 09/24/24 08:25 Dose: 360 mg Documented By: MARGOTH Enoxaparin Sodium (Enoxaparin Sodium 40 Mg/0.4 Ml Syringe) 40 mg SUBCUT Q24H [facility] Last Admin: 09/23/24 14:26 Dose: 40 mg Documented By: AISHA Flecainide Acetate (Flecainide Acetate 50 Mg Tablet) 50 mg PO BID [facility] Last Admin: 09/24/24 08:26 Dose: 50 mg Documented By: MARGOTH Furosemide (Furosemide 20 Mg Tablet) 20 mg PO DAILY [facility]; Protocol Last Admin: 09/24/24 08:27 Dose: 20 mg Documented By: MARGOTH Gabapentin (Gabapentin 100 Mg Capsule) 100 mg PO BID [facility] Last Admin: 09/24/24 08:26 Dose: 100 mg Documented By: MARGOTH Guaifenesin (Guaifenesin La 600 Mg Tab.Er.12h) 600 mg PO BID [facility] Last Admin: 09/24/24 08:26 Dose: 600 mg Documented By: MARGOTH Guaifenesin/Dextromethorphan (Guaifenesin Dm 200/20/10 Ml 10 Ml Syrup) 10 ml PO Q6H PRN PRN Reason: Cough Last Admin: 09/23/24 16:01 Dose: 10 ml Documented By: JT Doxycycline Hyclate 100 mg/ (Sodium Chloride) 250 mls @ 166.67 mls/hr IV Q12H [facility] Last Infusion: 09/24/24 04:06 Dose: Infused Documented By: JT Lisinopril (Lisinopril 10 Mg Tablet) 10 mg PO DAILY [facility]; Protocol Last Admin: 09/24/24 08:26 Dose: 10 mg Documented By: MARGOTH Magnesium Hydroxide (Milk Of Magnesia 30 Ml Oral.Susp) 30 ml PO DAILY PRN PRN Reason: Constipation Melatonin (Melatonin 3 Mg Tablet) 6 mg PO BEDTIME PRN PRN Reason: Insomnia Methylprednisolone Sodium Succinate (Methylprednisolone Sod Succ 40 Mg/Ml Vial) 40 mg IVPUSH Q8H [facility] Last Admin: 09/24/24 02:31 Dose: 40 mg Documented By: JT Nicotine (Nicotine 14 Mg Patch.Td24) 14 mg TRANSDERMA DAILY [facility] Last Admin: 09/24/24 08:25 Dose: 14 mg Documented By: MARGOTH Sodium Chloride (0.9 % Sodium Chloride Flush 3 Ml Syringe) 3 ml IVFLUSH QSHIFT [facility] Last Admin: 09/24/24 08:26 Dose: 3 ml Documented By: MARGOTH Labs 09/22/24 10:21 09/22/24 10:21 Assessment and Plan (1) Acute hypoxic respiratory failure: Status: Acute Plan 59 year old man admitted with COPD exacerbation Acute hypoxic resp failure secondary to acute intermittent asthma/COPD exacerbation due to RSV Slowly improving still with shortness of breath and cough, continue Scheduled duonebs and IV steroids 40 q.8 hours Oxygen supplementation to keep oxygen saturation greater than 94% Doxycycline IV started on 09/22 Continue supportive care with analgesics, Mucinex b.i.d., wean O2 as tolerated not on home oxygen Add incentive spirometry, out of bed to chair Atrial fibrillation Continue flecainide, diltiazem and aspirin, previously was on Xarelto but stopped due to melena, due to lack of recurrent atrial fibrillation as well as low thromboembolic risk patient not on anticoagulation Hypertension. Stable BP, Continue lisinopril, Lasix Tobacco use NRT, counseling done Morbid obesity recommend low-calorie diet DVT prophylaxis with Lovenox Full code Quality Stroke Does the patient have a stroke diagnosis?: No VTE Prior VTE?: No VTE Risk Level:: Medical - moderate - high VTE Device Contraindication: Treatment Not Indicated VTE Drug Contraindication: N/A - Med Ordered
[2024-09-24] MEDS: guaiFENesin DM 200/20/10 ML 10 ML SYRUP PO (11:29)
--- NOTE | 2024-09-24 12:27 | MHC.CM.PN ---
PER ROUNDS PT IS NOT MEDICVALLY READY FOR DC DC PLAN REMAINS FOR HOME
[2024-09-24] MEDS: Enoxaparin Sodium 40 MG/0.4 ML SYRINGE SUBCUT (14:20)
[2024-09-24] MEDS: Aspirin Enteric Coated 81 MG TABLET.DR PO (14:20)
[2024-09-24] MEDS: Doxycycline Monohydrate 100 MG CAPSULE PO (14:20)
[2024-09-24] MEDS: guaiFEN/Codeine SF 200/20/10ML 10 ML LIQUID PO ×2 (14:20→20:27)
[2024-09-25] VITALS (8 sets, daily range): BP systolic 121–147; BP diastolic 56–70; PULSE 63–110; RESP 18–19; TEMP 36.3–36.6; O2SAT 89–98
[2024-09-25] MEDS: methylPREDNISolone Sod Succ 40 MG/ML VIAL IVPUSH ×3 (03:29→18:01)
[2024-09-25] MEDS: Doxycycline Monohydrate 100 MG CAPSULE PO ×2 (03:29→15:07)
[2024-09-25] MEDS: Albuterol/Iprat 2.5/0.5MG 3 ML AMPUL.NEB INHALE ×4 (07:56→18:57)
--- NOTE | 2024-09-25 08:57 | P.PNIM_ITS ---
Subjective Subjective Date of Service: 09/25/24 Interval History: Follow up resp failure now on 2 L oxygenation 92-93%, complaining of persistent cough and shortness of breath, denies fever, no chills, no acute issues overnight, tolerating diet. Review of Systems All other system reviewed and are negative Physical Exam 2 Vital Signs: Vital Signs: Last Vital Signs Temp 97.9 F 09/25/24 08:00 Pulse 63 09/25/24 08:00 Resp 19 09/25/24 08:00 BP 129/59 L 09/25/24 08:00 Pulse Ox 90 L 09/25/24 08:00 O2 Del Method Nasal Cannula 09/25/24 08:00 O2 Flow Rate 2 09/25/24 08:00 BMI result Body Mass Index 41.0 Appearing in no acute distress lung sounds are clear to auscultation heart regular rate rhythm, clear S1, S2 positive bowel sounds, abdomen is soft, nontender neuro patient is alert x3, no focal deficits Objective Data Active Medications Acetaminophen (Acetaminophen 325 Mg Tablet) 650 mg PO Q6H PRN PRN Reason: Pain, Mild 1-3,fever,headache Albuterol/Ipratropium (Albuterol/Iprat 2.5/0.5mg 3 Ml Ampul.Neb) 3 ml INHALE RQ4H WHILE AWAKE [facility] Last Admin: 09/25/24 07:56 Dose: 3 ml Documented By: RUBEN Comments: computer not working Aspirin (Aspirin Enteric Coated 81 Mg Tablet.) 81 mg PO Q48H [facility] Last Admin: 09/24/24 14:20 Dose: 81 mg Documented By: MARGOTH Calcium Carbonate (Calcium Carbonate 750 Mg Tab.Chew) 750 mg PO Q4H PRN PRN Reason: Heartburn Diltiazem HCl (Diltiazem Hcl Cd 180 Mg Cap.Er.24h) 360 mg PO DAILY [facility]; Protocol Last Admin: 09/24/24 08:25 Dose: 360 mg Documented By: MARGOTH Doxycycline Monohydrate (Doxycycline Monohydrate 100 Mg Capsule) 100 mg PO Q12H [facility] Last Admin: 09/25/24 03:29 Dose: 100 mg Documented By: JARET Enoxaparin Sodium (Enoxaparin Sodium 40 Mg/0.4 Ml Syringe) 40 mg SUBCUT Q24H [facility] Last Admin: 09/24/24 14:20 Dose: 40 mg Documented By: MARGOTH Flecainide Acetate (Flecainide Acetate 50 Mg Tablet) 50 mg PO BID [facility] Last Admin: 09/24/24 20:24 Dose: 50 mg Documented By: KERRY Furosemide (Furosemide 20 Mg Tablet) 20 mg PO DAILY [facility]; Protocol Last Admin: 09/24/24 08:27 Dose: 20 mg Documented By: MARGOTH Gabapentin (Gabapentin 100 Mg Capsule) 100 mg PO BID [facility] Last Admin: 09/24/24 20:24 Dose: 100 mg Documented By: KERRY Guaifenesin (Guaifenesin La 600 Mg Tab.Er.12h) 600 mg PO BID [facility] Last Admin: 09/24/24 20:24 Dose: 600 mg Documented By: KERRY Guaifenesin/Codeine Phosphate (Guaifen/Codeine Sf 200/20/10ml 10 Ml Liquid) 10 ml PO Q4H PRN PRN Reason: Cough Last Admin: 09/24/24 20:27 Dose: 10 ml Documented By: KERRY Lisinopril (Lisinopril 10 Mg Tablet) 10 mg PO DAILY [facility]; Protocol Last Admin: 09/24/24 08:26 Dose: 10 mg Documented By: MARGOTH Magnesium Hydroxide (Milk Of Magnesia 30 Ml Oral.Susp) 30 ml PO DAILY PRN PRN Reason: Constipation Melatonin (Melatonin 3 Mg Tablet) 6 mg PO BEDTIME PRN PRN Reason: Insomnia Methylprednisolone Sodium Succinate (Methylprednisolone Sod Succ 40 Mg/Ml Vial) 40 mg IVPUSH Q8H [facility] Last Admin: 09/25/24 03:29 Dose: 40 mg Documented By: JARET Nicotine (Nicotine 14 Mg Patch.Td24) 14 mg TRANSDERMA DAILY [facility] Last Admin: 09/24/24 08:25 Dose: 14 mg Documented By: MARGOTH Sodium Chloride (0.9 % Sodium Chloride Flush 3 Ml Syringe) 3 ml IVFLUSH QSHIFT [facility] Last Admin: 09/24/24 20:30 Dose: 3 ml Documented By: KERRY Labs 09/22/24 10:21 09/22/24 10:21 Assessment and Plan (1) Acute hypoxic respiratory failure: Status: Acute Plan 59 year old man admitted with COPD exacerbation Acute hypoxic resp failure secondary to acute intermittent asthma/COPD exacerbation due to RSV Slowly improving still with shortness of breath and cough, continue Scheduled duonebs and IV steroids 40 q.8 hours Oxygen supplementation to keep oxygen saturation greater than 94% Doxycycline IV started on 09/22 Continue supportive care with analgesics, Mucinex b.i.d., wean O2 as tolerated not on home oxygen Add incentive spirometry ambulating and out of bed to chair Atrial fibrillation Continue flecainide, diltiazem and aspirin previously was on Xarelto but stopped due to melena, due to lack of recurrent atrial fibrillation as well as low thromboembolic risk patient not on anticoagulation Hypertension. Stable BP, Continue lisinopril, Lasix Tobacco use NRT, counseling done Morbid obesity. BMI 41.0 recommend low-calorie diet DVT prophylaxis with Lovenox Full code Quality Stroke Does the patient have a stroke diagnosis?: No VTE Prior VTE?: No VTE Risk Level:: Medical - moderate - high VTE Device Contraindication: Treatment Not Indicated VTE Drug Contraindication: N/A - Med Ordered
[2024-09-25] MEDS: 0.9 % Sodium Chloride Flush 3 ML SYRINGE IVFLUSH ×3 (09:15→20:13)
[2024-09-25] MEDS: Furosemide 20 MG TABLET PO (09:16)
[2024-09-25] MEDS: dilTIAZem HCL CD 180 MG CAP.ER.24H 360 MG PO (09:16)
[2024-09-25] MEDS: Gabapentin 100 MG CAPSULE PO ×2 (09:16→20:13)
[2024-09-25] MEDS: lisinopriL 10 MG TABLET PO (09:16)
[2024-09-25] MEDS: Flecainide Acetate 50 MG TABLET PO ×2 (09:16→20:13)
[2024-09-25] MEDS: guaiFENesin LA 600 MG TAB.ER.12H PO ×2 (09:16→20:13)
[2024-09-25] MEDS: Nicotine 14 MG PATCH.TD24 TRANSDERMA (09:27)
[2024-09-25] MEDS: Enoxaparin Sodium 40 MG/0.4 ML SYRINGE SUBCUT (15:07)
[2024-09-25] MEDS: guaiFEN/Codeine SF 200/20/10ML 10 ML LIQUID PO (15:12)
[2024-09-26] VITALS (9 sets, daily range): BP systolic 110–141; BP diastolic 54–62; PULSE 57–90; RESP 17–22; TEMP 36.4–36.8; O2SAT 85–95
[2024-09-26] MEDS: Doxycycline Monohydrate 100 MG CAPSULE PO ×2 (03:03→15:54)
[2024-09-26] MEDS: methylPREDNISolone Sod Succ 40 MG/ML VIAL IVPUSH ×3 (03:03→19:56)
[2024-09-26] MEDS: Albuterol/Iprat 2.5/0.5MG 3 ML AMPUL.NEB INHALE ×4 (08:00→20:14)
[2024-09-26] MEDS: Nicotine 14 MG PATCH.TD24 TRANSDERMA (08:44)
[2024-09-26] MEDS: lisinopriL 10 MG TABLET PO (08:45)
[2024-09-26] MEDS: guaiFENesin LA 600 MG TAB.ER.12H PO ×2 (08:45→19:55)
[2024-09-26] MEDS: Gabapentin 100 MG CAPSULE PO ×2 (08:45→19:55)
[2024-09-26] MEDS: dilTIAZem HCL CD 180 MG CAP.ER.24H 360 MG PO (08:45)
[2024-09-26] MEDS: Furosemide 20 MG TABLET PO (08:46)
[2024-09-26] MEDS: 0.9 % Sodium Chloride Flush 3 ML SYRINGE IVFLUSH ×3 (08:48→19:56)
[2024-09-26] MEDS: Flecainide Acetate 50 MG TABLET PO ×2 (08:49→19:55)
--- NOTE | 2024-09-26 10:54 | HO.PM.IMPN ---
Subjective Subjective Date of Service: 09/26/24 Interval History: Follow up resp failure now on 2 L oxygenation 92-93%, complaining of persistent cough and shortness of breath, denies fever, no chills, no acute issues overnight, tolerating diet. Review of Systems All other system reviewed and are negative Physical Exam Vital Signs: Vital Signs: Last Vital Signs Temp 97.5 F 09/26/24 08:00 Pulse 81 09/26/24 08:04 Resp 22 H 09/26/24 08:04 BP 141/62 H 09/26/24 08:00 Pulse Ox 91 L 09/26/24 08:00 O2 Del Method Nasal Cannula 09/26/24 08:00 O2 Flow Rate 3 09/26/24 08:00 BMI result Body Mass Index 41.0 Appearing in no acute distress lung sounds exp wheezing heart regular rate rhythm, clear S1, S2 positive bowel sounds, abdomen is soft, nontender neuro patient is alert x3, no focal deficits Objective Data Active Medications Acetaminophen (Acetaminophen 325 Mg Tablet) 650 mg PO Q6H PRN PRN Reason: Pain, Mild 1-3,fever,headache Albuterol/Ipratropium (Albuterol/Iprat 2.5/0.5mg 3 Ml Ampul.Neb) 3 ml INHALE RQ4H WHILE AWAKE [facility] Last Admin: 09/26/24 08:00 Dose: 3 ml Documented By: RUBEN Aspirin (Aspirin Enteric Coated 81 Mg Tablet.Dr) 81 mg PO Q48H [facility] Last Admin: 09/24/24 14:20 Dose: 81 mg Documented By: MARGOTH Calcium Carbonate (Calcium Carbonate 750 Mg Tab.Chew) 750 mg PO Q4H PRN PRN Reason: Heartburn Diltiazem HCl (Diltiazem Hcl Cd 180 Mg Cap.Er.24h) 360 mg PO DAILY [facility]; Protocol Last Admin: 09/26/24 08:45 Dose: 360 mg Documented By: GRAZSHELLY Doxycycline Monohydrate (Doxycycline Monohydrate 100 Mg Capsule) 100 mg PO Q12H [facility] Last Admin: 09/26/24 03:03 Dose: 100 mg Documented By: JARET Enoxaparin Sodium (Enoxaparin Sodium 40 Mg/0.4 Ml Syringe) 40 mg SUBCUT Q24H [facility] Last Admin: 09/25/24 15:07 Dose: 40 mg Documented By: MARIANNE Flecainide Acetate (Flecainide Acetate 50 Mg Tablet) 50 mg PO BID [facility] Last Admin: 09/26/24 08:49 Dose: 50 mg Documented By: MARIANNE Furosemide (Furosemide 20 Mg Tablet) 20 mg PO DAILY [facility]; Protocol Last Admin: 09/26/24 08:46 Dose: 20 mg Documented By: MARIANNE Gabapentin (Gabapentin 100 Mg Capsule) 100 mg PO BID [facility] Last Admin: 09/26/24 08:45 Dose: 100 mg Documented By: MARIANNE Guaifenesin (Guaifenesin La 600 Mg Tab.Er.12h) 600 mg PO BID [facility] Last Admin: 09/26/24 08:45 Dose: 600 mg Documented By: MARIANNE Guaifenesin/Codeine Phosphate (Guaifen/Codeine Sf 200/20/10ml 10 Ml Liquid) 10 ml PO Q4H PRN PRN Reason: Cough Last Admin: 09/25/24 15:12 Dose: 10 ml Documented By: MARIANNE Lisinopril (Lisinopril 10 Mg Tablet) 10 mg PO DAILY [facility]; Protocol Last Admin: 09/26/24 08:45 Dose: 10 mg Documented By: MARIANNE Magnesium Hydroxide (Milk Of Magnesia 30 Ml Oral.Susp) 30 ml PO DAILY PRN PRN Reason: Constipation Melatonin (Melatonin 3 Mg Tablet) 6 mg PO BEDTIME PRN PRN Reason: Insomnia Methylprednisolone Sodium Succinate (Methylprednisolone Sod Succ 40 Mg/Ml Vial) 40 mg IVPUSH Q12H [facility] Nicotine (Nicotine 14 Mg Patch.Td24) 14 mg TRANSDERMA DAILY [facility] Last Admin: 09/26/24 08:44 Dose: 14 mg Documented By: MARIANNE Sodium Chloride (0.9 % Sodium Chloride Flush 3 Ml Syringe) 3 ml IVFLUSH QSHIFT [facility] Last Admin: 09/26/24 08:48 Dose: 3 ml Documented By: MARIANNE Labs 09/22/24 10:21 09/22/24 10:21 Assessment and Plan (1) Acute hypoxic respiratory failure: Status: Acute Plan 59 year old man admitted with COPD exacerbation Acute hypoxic resp failure secondary to acute intermittent asthma/COPD exacerbation due to RSV Slowly improving still with shortness of breath and cough, continue Scheduled duonebs and IV steroids 40 q.8 hours Oxygen supplementation to keep oxygen saturation greater than 94% Doxycycline IV started on 09/22 Continue supportive care with analgesics, Mucinex b.i.d., wean O2 as tolerated not on home oxygen incentive spirometry ambulating and out of bed to chair still hypoxic on ambulation, repeat CXR Atrial fibrillation Continue flecainide, diltiazem and aspirin previously was on Xarelto but stopped due to melena, due to lack of recurrent atrial fibrillation as well as low thromboembolic risk patient not on anticoagulation Hypertension. Stable BP, Continue lisinopril, Lasix Tobacco use NRT, counseling done Morbid obesity. BMI 41.0 recommend low-calorie diet DVT prophylaxis with Lovenox attending Dr. Arguelles Full code Quality Stroke Does the patient have a stroke diagnosis?: No VTE Prior VTE?: No VTE Risk Level:: Medical - moderate - high VTE Device Contraindication: Treatment Not Indicated VTE Drug Contraindication: N/A - Med Ordered
[2024-09-26] MEDS: Enoxaparin Sodium 40 MG/0.4 ML SYRINGE SUBCUT (15:53)
[2024-09-26] MEDS: Aspirin Enteric Coated 81 MG TABLET.DR PO (15:53)
[2024-09-27 03:49] VITALS: BP 135/63; PULSE 68; RESP 20; TEMP 36.8; O2SAT 94
[2024-09-27] MEDS: Doxycycline Monohydrate 100 MG CAPSULE PO (03:49)
[2024-09-27 07:47] VITALS: BP 147/70; PULSE 72; RESP 20; TEMP 36.3; O2SAT 90
[2024-09-27] MEDS: Gabapentin 100 MG CAPSULE PO (08:21)
[2024-09-27] MEDS: Furosemide 20 MG TABLET PO (08:21)
[2024-09-27] MEDS: dilTIAZem HCL CD 180 MG CAP.ER.24H 360 MG PO (08:22)
[2024-09-27] MEDS: Flecainide Acetate 50 MG TABLET PO (08:22)
[2024-09-27] MEDS: lisinopriL 10 MG TABLET PO (08:22)
[2024-09-27] MEDS: guaiFENesin LA 600 MG TAB.ER.12H PO (08:22)
[2024-09-27] MEDS: 0.9 % Sodium Chloride Flush 3 ML SYRINGE IVFLUSH (08:26)
[2024-09-27] MEDS: methylPREDNISolone Sod Succ 40 MG/ML VIAL IVPUSH (08:27)
[2024-09-27 08:28] VITALS: PULSE 89; RESP 18; O2SAT 95
[2024-09-27] MEDS: Albuterol/Iprat 2.5/0.5MG 3 ML AMPUL.NEB INHALE ×2 (08:28→12:20)
--- NOTE | 2024-09-27 08:36 | PM.DS ---
DS: Providers Provider Date of Service: 09/27/24 Date of admission: 09/22/24 15:03 Date of discharge: 09/27/24 Primary care physician: Atul Ferreira MD DS: Diagnosis Discharge Diagnosis (1) Acute hypoxic respiratory failure: Status: Acute DS: Summary Hospital Course Hospital Course: History and physical as per admitting provider. 59-year-old male presenting to the emergency department with complaints of worsening shortness of breath and dry cough. According to his he has been feeling unwell over the last week. He denied fever, chills, nausea, vomiting, diarrhea. He does smoke cigarettes. He was recently on prednisone for an upper respiratory infection. He completed treatment but the cough came back and became worse. In the ER, Chest x-ray negative for consolidation or effusion, labs are within acceptable limits, RSV positive. Patient received a dose of levalbuterol, IV magnesium and Solu-Medrol in the ER. He will be admitted for further management and treatment of asthma/COPD exacerbation. 59-year-old man treated for acute hypoxic respiratory failure secondary to intermittent asthma/COPD exacerbation and RSV. Patient treated with scheduled DuoNebs and IV steroids, Mucinex, analgesics and incentive spirometer. initially 40 mg q.8 hours, patient to complete prednisone taper. Oxygen saturations have been around 94% on 2 L. Patient has been ambulating and out of bed to chair. Repeat chest x-ray was negative for consolidation or effusion. Patient underwent home oxygen evaluation with recommendation for 4 L of oxygen with ambulation and 2 L at rest Atrial fibrillation. Continue flecainide, diltiazem and aspirin, not on Xarelto due to history of melena Hypertension. Stable blood pressure during admission. Continue lisinopril and Lasix Tobacco use. Treated with nicotine patch during hospitalization. Discussed importance of smoking cessation Morbid obesity. BMI 41.0. Discussed importance of weight management as this may be contributing to worsening of other comorbidities Time Attestation Discharge Coordination Time (in mins): 40 Quality: Safe Use of Opioids Does Pt have an Active Cancer Diagnosis on the Problem List?: No Quality: Stroke Does the patient have a stroke diagnosis?: No Physical Exam Vital Signs: Vital Signs: Last Vital Signs Temp 97.4 F 09/27/24 07:47 Pulse 89 09/27/24 08:28 Resp 18 09/27/24 08:28 BP 147/70 H 09/27/24 07:47 Pulse Ox 90 L 09/27/24 07:47 O2 Del Method Nasal Cannula 09/27/24 07:47 O2 Flow Rate 2 09/27/24 07:47 BMI result Body Mass Index 41.0 Appearing in no acute distress head is normocephalic atraumatic eyes pupils are PERRLA sclera is anicteric mouth throat mucous membranes are intact and moist neck is supple no lymphadenopathy, no JVD noted lung sounds are clear to auscultation heart regular rate rhythm, clear S1, S2 positive bowel sounds, abdomen is soft, nontender neuro patient is alert x3, no focal deficits Discharge Plan Discharge Anticipated Discharge Date/Time: 09/27/24 08:31 Patient Disposition: Home, Self-Care Discharge Diagnosis: Hypoxic respiratory failure COPD RSV Referrals: Atul Ferreira MD [Primary Care Provider] - 1 Week Discharge Medications: New doxycycline monohydrate 100 mg Capsule 100 mg PO Q12H Qty: 5 0RF prednisone 10 mg tablet See Taper PO DIRECTED Qty: 30 0RF Taper: Prednisone 40 mg daily for 3 Days and 0 Hour 30 mg daily for 3 Days and 0 Hour 20 mg daily for 3 Days and 0 Hour 10 mg daily for 3 Days and 0 Hour Rx Instructions: see taper instructions Continued diltiazem HCl [Tiadylt ER] 360 mg capsule,extended release 24 hr 360 mg PO DAILY lisinopril 10 mg tablet 10 mg PO DAILY flecainide 100 mg tablet 50 mg PO BID furosemide 20 mg tablet 20 mg PO DAILY gabapentin 100 mg capsule 100 mg PO BID albuterol sulfate 90 mcg/actuation HFA aerosol inhaler 2 puff inhalation Q6H PRN (Reason: Bronchospasm) aspirin 81 mg Tablet,Delayed Release (Dr/Ec) 81 mg PO Q48H Discharge Orders: Discharge Order (Routine); Ordered 09/27/24 Ordered By: Elena Davidson Diet: Advance to usual diet Activity on Discharge: As tolerated Stand Alone Forms: Patient Portal Discharge page Print Language: Belarusian Care Plan Goals: He will be sent home with oxygen 4 L with ambulation and 2 L at rest Do not smoke or let others smoke while you are using oxygen. Put up no smoking signs in your home. Do not use oxygen near open flames, such as candles, fireplaces, gas stoves, or hot water heaters. Do not use it near electric razors, hair dryers, heating pads, or anything that may spark. Keep a working fire extinguisher in your home where it is easy to get to. Health Concerns: Hypoxic respiratory failure COPD RSV Plan of Treatment: Follow up with primary care provider as needed Take all medications as prescribed Assessment: See discharge summary
[2024-09-27 10:24] VITALS: PULSE 89; PULSE 96; PULSE 99; O2SAT 82; O2SAT 87; O2SAT 91
--- NOTE | 2024-09-27 11:22 | MHC.CM.PN ---
pt dcd home self care
[2024-09-27 12:22] VITALS: PULSE 89; RESP 18; O2SAT 92
== END 2024-09-27 14:17 | disposition home or self-care (01) | DRG 140 ==
LOC: HO.ED 14:51 → HO.EDOVER 15:17 → HO.S3 19:25
PROVIDERS: Physician Assistant Medical; Admitting Provider Nurse Practitioner Acute Care; Emergency Provider Student in an Organized Health Care Education/Training Program; PCP Internal Medicine; Visit Provider Nurse Practitioner Acute Care
DX: J44.1 Chronic obstructive pulmonary disease with (acute) exacerbation (principal); J96.01 Acute respiratory failure with hypoxia; B97.4 Respiratory syncytial virus as the cause of diseases classified elsewhere; I48.0 Paroxysmal atrial fibrillation; J45.901 Unspecified asthma with (acute) exacerbation; E66.01 Morbid (severe) obesity due to excess calories; Z68.41 Body mass index [BMI] 40.0-44.9, adult; F17.210 Nicotine dependence, cigarettes, uncomplicated; Z71.6 Tobacco abuse counseling; Z79.82 Long term (current) use of aspirin; Z79.899 Other long term (current) drug therapy
CPT/HCPCS: 0241U; 36415; 71045; 71046; 80053; 82803; 83735; 84484; 85025; 93005; 94640; 94664; 99285; J1650; J2919; J3475

== ENCOUNTER 2024-09-22 15:03 | Outpatient (BNV) | payer OTHER, SELFPAY | END 2024-09-26 11:55 | PROVIDERS: Admitting Provider Nurse Practitioner Acute Care; Emergency Provider Student in an Organized Health Care Education/Training Program; PCP Internal Medicine; Visit Provider Radiology Vascular & Interventional Radiology | DX: R06.02 Shortness of breath (principal) | CPT/HCPCS: 71045 ==

== ENCOUNTER → 2024-09-22 15:03 | Outpatient (BNV) | payer OTHER, SELFPAY | PROVIDERS: Admitting Provider Nurse Practitioner Acute Care; Emergency Provider Student in an Organized Health Care Education/Training Program; PCP Internal Medicine; Visit Provider Nurse Practitioner Acute Care | DX: B33.8 Other specified viral diseases (principal); J45.901 Unspecified asthma with (acute) exacerbation; J96.01 Acute respiratory failure with hypoxia | CPT/HCPCS: 99233 ==

== ENCOUNTER → 2024-09-29 12:58 | Outpatient (BNVA) | payer OTHER, SELFPAY | PROVIDERS: PCP Internal Medicine; Visit Provider Internal Medicine ==

== ENCOUNTER 2024-10-01 14:19 | Outpatient (AMB) ==
[2024-10-01 14:21] VITALS: BP 140/70; PULSE 71; O2SAT 93; BMI 40.7
--- NOTE | 2024-10-01 14:21 | MHC.OFFVIS ---
Vital Signs 10/01/24 14:21 Height 5 ft 11 in Weight 292 lb BMI 40.7 BP 140/70 H Blood Pressure Location Lt brachial Position Sitting Pulse 71 Pulse Oximetry (%) 93 Oxygen Delivery Method Nasal Cannula Oxygen Flow Rate 2 Intake Visit Reasons: Hypoxia Meat Loiner Required: No Bowling Ball Grader: Bowling Ball Grader offered & declined Accompanied by: Spouse Allergies No Known Allergies [No Known Allergies*] Allergy (Verified 10/01/24 14:27) Medication List - Last Reconciled 10/01/24 by Amy Rodriguez LPN albuterol sulfate 90 mcg/actuation 2 puffs inhalation Q6H PRN aspirin 81 mg PO Q48H diltiazem HCl ER (Tiadylt ER) 360 mg PO DAILY flecainide 50 mg PO BID furosemide 20 mg PO DAILY gabapentin 100 mg PO BID lisinopril 10 mg PO DAILY prednisone See Taper mg PO DIRECTED HPI HPI Hypoxia: Details: Lux is a pleasant 59 year old male, current smoker, with 20 pyh with underlying atrial fibrillation and HTN. He was referred by PCP for pulmonary evaluation after recent admission to [facility] 09/22-09/27 for acute respiratory failure with hypoxia secondary to RSV. He was treated with IV abx, IV steroids, nebs and discharged on 4L supplemental oxygen with exertion, 2L at rest. He has a concentrator at home and portable tanks. Upon arrival to room today, patient was not using supplemental oxygen, walked approximately 50 yards to exam room and was satting 85% on room air, recovering quickly to 93% on 2L. He reports minimal improvement in productive cough and chest congestion as well as wheezing since discharge. Unsure sputum color. He has been using albuterol MDI upwards of six times per day with moderate effect. He has never been on a daily inhaler. He reports asthma as a child, never requiring intubations, with minimal issues as an adult until recently. Over the last few months he has noted progressively worsening dyspnea on exertion. He reports mother, smoker with COPD/emphysema, otherwise no pertinent family history. He denies seasonal allergies. He endorses significant smoke hand smoke exposure as a child. 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 Prior CXR unremarkable, no prior chest CT. Of note, he had home sleep study in 05/2024 which revealed mild JEANINE with significant nocturnal hypoxemia, <88% for 444 minutes. He was not interested in trialing CPAP therapy but agreeable to nocturnal supplemental oxygen. [facility] Medical History Essential hypertension residential current use of antiarrhythmic drug Paroxysmal atrial flutter PAF (paroxysmal atrial fibrillation) Surgical History History of colonoscopy (~09/26/15) History of cardioversion (~2015) Family History Father No problems noted. Mother COPD (chronic obstructive pulmonary disease) Social History (Updated 10/01/24 @ 14:30 by Amy Rodriguez LPN) Household Members: Spouse Housing: Apartment Do you presently have visiting nurse or other home services: No Alcohol intake: current Alcohol intake frequency: a few times a month Alcohol type: beer Patient Tobacco Use Status: Current everyday Tobacco user Tobacco use type: Cigarette Cigarettes Per Day: 2 Years Smoked: 40 e-Cigarette/Vaping Use: Never Used Second Hand Smoke Exposure: No service: No Current occupational status: employed Cognitive needs: No Hearing needs: No Vision needs: No Review of Systems Const Denies chills, Denies excessive sweating, Denies fever(s), Denies headache(s) and Denies night sweats Eyes Denies dry eyes, Denies irritation and Denies itchy eyes ENT Reports Normal hearing present, Denies headache(s), Denies nasal congestion, Denies nasal discharge, Denies post nasal drip and Denies sore throat Card Denies chest pain, Denies chest pain at rest, Denies chest pain with activity, Denies claudication, Denies leg edema, Denies orthopnea and Denies paroxysmal nocturnal dyspnea Resp Denies excessive phlegm production, Denies pain on inspiration, Denies pain with cough and Denies stridor Musc Denies myalgias Neuro Reports Normal hearing present and Denies headache(s) Endo Denies excessive sweating Stan/Lymph Denies lymphadenopathy Aller/Immun Denies itchy eyes and Denies seasonal rhinorrhea Physical Exam Vital Signs: Last Vital Signs Pulse 71 10/01/24 14:21 BP 140/70 H 10/01/24 14:21 Pulse Ox 93 10/01/24 14:21 Oxygen Delivery Method Nasal Cannula 10/01/24 14:21 Oxygen Flow Rate 2 10/01/24 14:21 BMI result Body Mass Index 40.7 Last Vital Signs Temp 97.4 F 09/27/24 07:47 Pulse 89 09/27/24 08:28 Resp 18 09/27/24 08:28 BP 147/70 H 09/27/24 07:47 Pulse Ox 90 L 09/27/24 07:47 O2 Del Method Nasal Cannula 09/27/24 07:47 O2 Flow Rate 2 09/27/24 07:47 BMI result Body Mass Index 41.0 Const General: cooperative, healthy appearing, comfortable, no acute distress, well developed and alert Nutritional Appearance: obese Orientation/consciousness: patient oriented x3 Limitations: no limitations HEENT Head: Yes normal to inspection, Yes normocephalic and Yes atraumatic Ears: hearing grossly normal bilaterally and external ears normal Eyes General: appearance normal, both eyes and all related structures Eyelids: Yes eyelids normal Sclerae: sclerae normal EOM: EOMs intact bilaterally Neck Neck: Yes normal visual inspection and Yes no lymphadenopathy Lymphatic: no lymphadenopathy noted Chest Chest palpation & inspection: normal inspection of the chest Resp Other: productive cough throughout visit, faint expiratory wheezes throughout Effort & Inspection: normal respiratory effort, able to speak in complete sentences, no audible wheezes, no stridor, not tachypneic, no tripod positioning and no use of accessory muscles Cardio Jugular venous distension: no JVD Rate: regular rate Rhythm: regular rhythm Skin Other: warm, dry General skin exam: no rashes or lesions noted Neuro General: patient oriented x3 Cranial nerves: Yes Normal hearing present Cognition (Neuro): normal cognition Gait exam (Neuro): Normal gait present Extrem General: Yes normal to inspection, Yes capillary refill normal, Yes no clubbing, cyanosis or edema and Yes no pedal edema Psych Appearance: grossly normal and well kempt Speech and movement: Normal speech and movement present and Clear speech present Affect: normal affect Attitude: cooperative Thought process: Normal thought process present Thought content: Normal thought content present Insight: Good insight present (Psych) Judgement: Good judgement present (Psych) Assessment & Plan Assessment & Plan (1) COPD (chronic obstructive pulmonary disease): Code(s): J44.9 - Chronic obstructive pulmonary disease, unspecified Category: Medical (2) Nicotine dependence, cigarettes, uncomplicated: Code(s): F17.210 - Nicotine dependence, cigarettes, uncomplicated Category: Medical (3) History of acute respiratory failure: Code(s): Z87.09 - Personal history of other diseases of the respiratory system Category: Medical (4) Nocturnal hypoxemia: Code(s): G47.34 - Idiopathic sleep related nonobstructive alveolar hypoventilation Category: Medical Plan Lux presents after recent admission to [facility] for acute respiratory failure with hypoxia. He continues with bronchitic symptoms, will treat with Augmentin and prednisone. Patient also with likely COPD, will empirically start Symbicort. Discussed importance of good oral hygiene to prevent thrush.Will send for PFT to assess severity of obstructive defect. Smoking cessation reviewed. Prior home sleep study revealed mild JEANINE with nocturnal hypoxemia, not interested in CPAP therapy at this time. Will send for overnight oximetry to ensure 2L of supplemental oxygen if sufficient. Will perform 6MWT at next visit, for now discussed 2L at rest and 4L on exertion, as prescribed upon discharge, to maintain O2 >92%. Will also send for chest CT as patient with 20pyh, will schedule for 6 weeks after completing Augmentin. All questions were answered and patient is in agreement of plan. Will follow up in 4 weeks or sooner if needed. Orders: Orders Overnight Pulse Oximetry Today G47.34 - Idiopathic sleep related nonobstructive alveolar hypoventilation CT chest wo IV con 6 Weeks F17.210 - Nicotine dependence, cigarettes, uncomplicated PFT pulmonary function test Today J44.9 - Chronic obstructive pulmonary disease, unspecified Medications: New budesonide-formoterol 160-4.5 mcg/actuation (Symbicort) 2 puffs inhalation Q12H 10.2 grams 6RF prednisone see taper instructions Take 4 pills daily for 5 days, then go down by 1 pill every 5 days; 20 days 50 tabs 0RF 10 mg PO DIRECTED 50 tabs 0RF amoxicillin-pot clavulanate 875-125 mg 1 tab PO Q12H 20 tabs 0RF Coding Level of Care Code New Pt Level 4 (23719) Complex EM visit Add On G2211 Diagnoses COPD (chronic obstructive pulmonary disease) J44.9 Nicotine dependence, cigarettes, uncomplicated F17.210 History of acute respiratory failure Z87.09 Nocturnal hypoxemia G47.34
== END 2024-10-01 15:17 | disposition home or self-care (01) ==
DX: J44.9 Chronic obstructive pulmonary disease, unspecified (principal); F17.210 Nicotine dependence, cigarettes, uncomplicated; Z87.09 Personal history of other diseases of the respiratory system; G47.34 Idiopathic sleep related nonobstructive alveolar hypoventilation
CPT/HCPCS: 99204

== ENCOUNTER → 2024-10-01 14:19 | Outpatient (BNVA) | payer OTHER, SELFPAY | PROVIDERS: PCP Internal Medicine; Referring Provider Internal Medicine; Visit Provider Nurse Practitioner Family ==

== ENCOUNTER 2024-10-27 08:11 | Outpatient (AMB) | payer OTHER, SELFPAY ==
--- NOTE | 2024-10-27 08:14 | MHC.PC.OV ---
Vital Signs 10/27/24 08:16 Height 5 ft 11 in Weight 296 lb 6 oz BMI 41.3 BP 130/70 Blood Pressure Location Lt brachial Position Sitting Pulse 82 Pulse Source Pulse Oximeter Temp 97.3 F Temp Source Temporal Artery Scan Pulse Oximetry (%) 94 Oxygen Delivery Method Room Air Intake Visit Reasons: 3 month f/u Intake Note: Patient is here to follow up on HTN. Financial Services Representative Required: No Case Management Coordinator: Not Required per policy Accompanied by: Self / Same As Patient Allergies amoxicillin Allergy (Intermediate, Verified 10/27/24 08:20) Hives budesonide [From Symbicort] Allergy (Intermediate, Verified 10/27/24 08:20) Hives formoterol [From Symbicort] Allergy (Intermediate, Verified 10/27/24 08:20) Hives Medication List - Last Reconciled 10/27/24 by Atul Ferreira MD albuterol sulfate 90 mcg/actuation 2 puffs inhalation Q6H PRN aspirin 81 mg PO Q48H diltiazem HCl ER (Tiadylt ER) 360 mg PO DAILY flecainide 50 mg PO BID furosemide 20 mg PO DAILY gabapentin 100 mg PO BID lisinopril 10 mg PO DAILY prednisone 10 mg PO DIRECTED Tobacco use date assessed: 10/27/24 Dental Screening Dental Screen Date: 09/29/24 HPI 3 month f/u HPI Details COPD; sees pulmonary; has significant dyspnea which limits his ability to work [facility] Medical History 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 Mother COPD (chronic obstructive pulmonary disease) Social History Household Members: Spouse Housing: Apartment Do you presently have visiting nurse or other home services: No Alcohol intake: current Alcohol intake frequency: a few times a month Alcohol type: beer Patient Tobacco Use Status: Current everyday Tobacco user Tobacco use type: Cigarette Cigarette Packs Per Day: 0.5 Cigarettes Per Day: 4 Years Smoked: 40 Packs Per Year: 20 Packs per year/per ci.00 e-Cigarette/Vaping Use: Never Used Second Hand Smoke Exposure: No service: No Current occupational status: employed Cognitive needs: No Hearing needs: No Vision needs: No Questionnaire Thrive Questionnaire Date Thrive assessed: 09/23/24 ANUSHKA-7 AMB Questionnaire ANUSHKA-7 Date ANUSHKA - 7 assessed: 09/29/24 Source: Developed by Drs. Thor Rivera, Winsome Moss, Chad French and colleagues, with an educational cyndi from [employer]. Review of Systems Const Denies chills, Denies headache(s) and Denies weight loss ENT Denies headache(s) Card Denies chest pain, Denies syncope and Denies irregular heart rhythm GI Denies abdominal pain, Denies change in stool character, Denies nausea and Denies vomiting Musc Denies deformity and Denies joint swelling Neuro Denies syncope and Denies headache(s) Physical exam (Primary Care) Vital Signs: Last Vital Signs Temp 97.3 F 10/27/24 08:16 Pulse 82 10/27/24 08:16 BP 130/70 10/27/24 08:16 Pulse Ox 94 10/27/24 08:16 Oxygen Delivery Method Room Air 10/27/24 08:16 BMI result Body Mass Index 41.3 Tobacco/Smoking Status: Tobacco use Status Tobacco use date assessed 10/27/24 10/27/24 08:22 Patient Tobacco Use Status Current everyday Tobacco 10/27/24 08:22 Tobacco use type Cigarette 10/27/24 08:22 e-Cigarette/Vaping Use Never Used 10/27/24 08:22 Thrive Assessment: Date of Thrive Assessment Date Thrive assessed 09/23/24 10/27/24 08:22 Const General: cooperative, comfortable, no acute distress and alert Neck Neck: Yes no lymphadenopathy Thyroid: Thyroid normal Resp Effort & Inspection: normal respiratory effort Auscultation: clear to auscultation bilaterally Percussion: percussion normal Cardio Jugular venous distension: no JVD Palpation: normal PMI Rate: regular rate Rhythm: regular rhythm Heart sounds: S1 normal heart sound present and S2 normal heart sound present GI Inspection: Yes normal to inspection Palpation (GI): No hepatosplenomegaly present Skin General skin exam: no rashes or lesions noted Extrem General: Yes no clubbing, cyanosis or edema Coding Level of Care Code Est Pt Level 3 (46629) Diagnoses COPD (chronic obstructive pulmonary disease) J44.9 Assessment & Plan Assessment & Plan (1) COPD (chronic obstructive pulmonary disease): Code(s): J44.9 - Chronic obstructive pulmonary disease, unspecified Category: Medical Plan: stable; as per pulmonary
[2024-10-27 08:16] VITALS: BP 130/70; PULSE 82; TEMP 36.3; O2SAT 94; BMI 41.3
--- OUTSIDE RECORDS SUMMARY | 2024-10-27 08:27 | XMS_ITS | Clinical Summary ---
Author Organization [employer] Address [address] [place] [id number] Care Team Providers Care Dramatic Teacher Name Role Phone Atul Ferreira MD Primary Care Provider [phone] Allergies No known active allergies Medications albuterol HFA 90 mcg/actuation inhaler INHALE 2 PUFFS EVERY 6 HOURS NEEDED FOR BRONCHOSPASM 2 Active cyclobenzaprine (FLEXERIL) 10 mg tablet TAKE 1 TABLET BY MOUTH TWICE A DAY NEEDED FOR MUSCLE SPASM 2 Active flecainide (TAMBOCOR) 100 mg tablet Take 50 mg by mouth twice a day 2 Active lidocaine (LIDODERM) 5 % patch APPLY 1 PATCH TOPICALLY ONCE DAILY AND LEAVE ON MOST PAINFUL AREA FOR UP TO 12 HOURS 2 Active lisinopriL (PRINIVIL) 10 mg tablet Take 10 mg by mouth 2 Active Tiadylt ER 360 mg 24 hr capsule Take 360 mg by mouth 2 Active Active Problems Problem Noted Date Diagnosed Date [...] Recorded Sex Assigned at Not on file Legal Sex Male 7:23 AM MST Gender Identity Not on file Sexual Orientation Not on file Last Filed Vital Signs [...] DTaP,Tdap,and Td Vaccines (1 - Tdap) 1983 Pneumococcal Vaccine: 50+ Years (1 of 2 - PCV) 983 Zoster Vaccines (1 of 2) 2014 COVID-19 Vaccine (1 - 2023- season) 2024 Influenza Vaccine (#1) 2024 RSV Vaccine (SCDM) (1 - Risk 60-74 years 1-dose series ) 2024 Insurance [employer] Care Teams Dramatic Teacher Relationship Specialty Start Date End Date Atul Ferreira MD [address] [place] [address] [place] [address] PCP - General Internal Medicine 10/23/21
== END 2024-10-27 08:44 | disposition home or self-care (01) ==
PROVIDERS: PCP Internal Medicine; Visit Provider Internal Medicine
DX: J44.9 Chronic obstructive pulmonary disease, unspecified (principal)

== ENCOUNTER 2024-10-29 10:05 | Outpatient (AMB) | payer OTHER, SELFPAY ==
--- NOTE | 2024-10-29 10:13 | MHC.OFFVIS ---
Vital Signs 10/29/24 10:14 Height 5 ft 11 in Weight 299 lb BMI 41.7 BP 134/74 Blood Pressure Location Rt brachial Position Left Lateral Pulse 79 Pulse Source Pulse Oximeter Pulse Oximetry (%) 95 Oxygen Delivery Method Nasal Cannula Oxygen Flow Rate 1 Intake Visit Reasons: Hypoxia Superintendent Meters Required: No Verifying Machine Operator: Verifying Machine Operator offered & declined Accompanied by: Self / Same As Patient Allergies amoxicillin Allergy (Intermediate, Verified 10/29/24 10:24) Hives budesonide [From Symbicort] Allergy (Intermediate, Verified 10/29/24 10:24) Hives formoterol [From Symbicort] Allergy (Intermediate, Verified 10/29/24 10:24) Hives Medication List - Last Reconciled 10/29/24 by Amy Rodriguez LPN albuterol sulfate 90 mcg/actuation 2 puffs inhalation Q6H PRN aspirin 81 mg PO Q48H diltiazem HCl ER (Tiadylt ER) 360 mg PO DAILY flecainide 50 mg PO BID furosemide 20 mg PO DAILY gabapentin 100 mg PO BID lisinopril 10 mg PO DAILY HPI HPI Hypoxia: Details: Lux is a pleasant 59 year old male, current smoker, with 20 pyh with underlying atrial fibrillation and HTN. He was initially referred by PCP for pulmonary evaluation after recent admission to [facility] 09/22-09/27 for acute respiratory failure with hypoxia secondary to RSV. He was treated with IV abx, IV steroids, nebs and discharged on 4L supplemental oxygen with exertion, 2L at rest. He has a concentrator at home and portable tanks. Upon arrival to room at last visit , patient was not using supplemental oxygen, walked approximately 50 yards to exam room and was satting 85% on room air, recovering quickly to 93% on 2L. He also reported productive cough and chest congestion treated with Augmentin at the last visit, with resolution of cough and chest congestion. He has h/o COPD, started on Symbicort however developed a pruritic rash on chest so discontinued. Not clear if from Augmentin or Symbicort. He continues with dyspnea on exertion and intermittent wheezing. Today he again was hypoxic upon arrival to room, satting 87-88% on room air. He notes portable supplemental oxygen is in his car however he rarely uses during daytime. 1L was placed on patient at rest, satting 95%. He does continue to use 2L supplemental oxygen at [facility] and presents today to review overnight oximetry report. He denies any visits to urgent care or hospitalizations since the last visit related to respiratory distress. He had home sleep study in 05/2024 which revealed mild JEANINE with significant nocturnal hypoxemia, <88% for 444 minutes. He again stated he was not interested in trialing CPAP therapy but agreeable to nocturnal supplemental oxygen. 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 Mother COPD (chronic obstructive pulmonary disease) Social History Household Members: Spouse Housing: Apartment Do you presently have visiting nurse or other home services: No Alcohol intake: current Alcohol intake frequency: a few times a month Alcohol type: beer Patient Tobacco Use Status: Current everyday Tobacco user Tobacco use type: Cigarette Cigarette Packs Per Day: 0.5 Cigarettes Per Day: 4 Years Smoked: 40 e-Cigarette/Vaping Use: Never Used Second Hand Smoke Exposure: No service: No Current occupational status: employed Cognitive needs: No Hearing needs: No Vision needs: No Review of Systems Const Denies chills, Denies excessive sweating, Denies fever(s), Denies headache(s) and Denies night sweats Eyes Denies dry eyes, Denies irritation and Denies itchy eyes ENT Reports Normal hearing present, Denies headache(s), Denies nasal congestion, Denies nasal discharge, Denies post nasal drip and Denies sore throat Card Denies chest pain, Denies chest pain at rest, Denies chest pain with activity, Denies claudication, Denies leg edema, Reports dyspnea on exertion, Denies orthopnea and Denies paroxysmal nocturnal dyspnea Resp Denies chest congestion, Denies cough, Denies excessive phlegm production, Denies pain on inspiration, Denies pain with cough, Reports dyspnea on exertion, Denies stridor and Reports wheezing Musc Denies myalgias Neuro Reports Normal hearing present and Denies headache(s) Endo Denies excessive sweating Stan/Lymph Denies lymphadenopathy Aller/Immun Denies itchy eyes, Denies seasonal rhinorrhea and Reports wheezing Physical Exam Vital Signs: Last Vital Signs Pulse 79 10/29/24 10:14 BP 134/74 10/29/24 10:14 Pulse Ox 95 10/29/24 10:14 Oxygen Delivery Method Nasal Cannula 10/29/24 10:14 Oxygen Flow Rate 1 10/29/24 10:14 BMI result Body Mass Index 41.7 Const General: cooperative, healthy appearing, comfortable, no acute distress, well developed and alert Nutritional Appearance: obese Orientation/consciousness: patient oriented x3 Limitations: no limitations HEENT Head: Yes normal to inspection, Yes normocephalic and Yes atraumatic Ears: hearing grossly normal bilaterally and external ears normal Eyes General: appearance normal, both eyes and all related structures Eyelids: Yes eyelids normal Sclerae: sclerae normal EOM: EOMs intact bilaterally Neck Neck: Yes normal visual inspection and Yes no lymphadenopathy Lymphatic: no lymphadenopathy noted Chest Chest palpation & inspection: normal inspection of the chest Resp Effort & Inspection: normal respiratory effort, able to speak in complete sentences, no audible wheezes, no cough, no stridor, not tachypneic, no tripod positioning, no use of accessory muscles and prolonged expiratory phase Auscultation: diminished lung sounds Cardio Jugular venous distension: no JVD Rate: regular rate Rhythm: regular rhythm Skin Other: warm, dry General skin exam: no rashes or lesions noted Neuro General: patient oriented x3 Cranial nerves: Yes Normal hearing present Cognition (Neuro): normal cognition Gait exam (Neuro): Normal gait present Extrem General: Yes normal to inspection, Yes capillary refill normal, Yes no clubbing, cyanosis or edema and Yes no pedal edema Psych Appearance: grossly normal and well kempt Speech and movement: Normal speech and movement present and Clear speech present Affect: normal affect Attitude: cooperative Thought process: Normal thought process present Thought content: Normal thought content present Insight: Good insight present (Psych) Judgement: Good judgement present (Psych) Assessment & Plan Assessment & Plan (1) COPD (chronic obstructive pulmonary disease): Code(s): J44.9 - Chronic obstructive pulmonary disease, unspecified Category: Medical (2) Nicotine dependence, cigarettes, uncomplicated: Code(s): F17.210 - Nicotine dependence, cigarettes, uncomplicated Category: Medical (3) History of acute respiratory failure: Code(s): Z87.09 - Personal history of other diseases of the respiratory system Category: Medical (4) Nocturnal hypoxemia: Code(s): G47.34 - Idiopathic sleep related nonobstructive alveolar hypoventilation Category: Medical Plan Patient developed allergic reaction after initiating Symbicort, however also on Augmentin at that time. Unclear what patient reacted to, will avoid both at this time. Will trial Breo in its place. Discussed importance of good oral hygiene to prevent thrush. Discussed importance of supplemental oxygen and need for 2L with exertion and overnight oximetry revealed hypoxia <88% for 213 minutes despite 2L of supplemental oxygen. Advised to increase to 3L. Prior home sleep study revealed mild JEANINE with nocturnal hypoxemia, not interested in CPAP therapy at this time. Will send for overnight oximetry to ensure 3L of supplemental oxygen if sufficient. Will schedule 6MWT in the [place] location to determine appropriate liter flow. At the last v visit, PFT and chest CT orders placed, scheduled later this month. All questions were answered and patient is in agreement of plan. Will follow up in 6-8 weeks or sooner if needed. Orders: Orders Overnight Pulse Oximetry Today G47.34 - Idiopathic sleep related nonobstructive alveolar hypoventilation Medications: New fluticasone furoate-vilanterol 200-25 mcg/dose (Breo Ellipta) 1 inh inhalation DAILY 60 ea 3RF Coding Level of Care Code Est Pt Level 4 (93357) Diagnoses COPD (chronic obstructive pulmonary disease) J44.9 Nicotine dependence, cigarettes, uncomplicated F17.210 History of acute respiratory failure Z87.09 Nocturnal hypoxemia G47.34
[2024-10-29 10:14] VITALS: BP 134/74; PULSE 79; O2SAT 95; BMI 41.7
--- OUTSIDE RECORDS SUMMARY | 2024-10-29 11:18 | XMS_ITS | Clinical Summary ---
Author Organization [employer] Address [address] [place] [id number] Care Team Providers Care Home Service Demonstrator Name Role Phone Atul Ferriera MD Primary Care Provider [phone] Allergies No known active allergies Medications albuterol [...] series ) 2024 Insurance [employer] Care Teams Home Service Demonstrator Relationship Specialty Start Date End Date Atul Ferreira MD [address] [place] [address] [place] [address] PCP - General Internal Medicine 10/23/21
== END 2024-10-29 10:56 | disposition home or self-care (01) ==
PROVIDERS: PCP Internal Medicine; Visit Provider Nurse Practitioner Family
DX: J44.9 Chronic obstructive pulmonary disease, unspecified (principal); F17.210 Nicotine dependence, cigarettes, uncomplicated; Z87.09 Personal history of other diseases of the respiratory system; G47.34 Idiopathic sleep related nonobstructive alveolar hypoventilation
CPT/HCPCS: 99214

== ENCOUNTER → 2024-10-29 10:05 | Outpatient (BNVA) | payer OTHER, SELFPAY | PROVIDERS: PCP Internal Medicine; Visit Provider Nurse Practitioner Family ==

== ENCOUNTER 2024-11-09 10:54 | Outpatient (REF) | payer OTHER, SELFPAY ==
--- NOTE | 2024-11-09 10:56 | PFT_ITS ---
Flows: FEV1: 32 % of predicted at 1.19 L FVC: 56 % of predicted at 2.69 L FEV1/FVC: 44 % Bronchodilator response: Present Volumes: Total lung capacity: 83 % of predicted at 6.20 L Residual volume: 164 % of predicted at 3.80 L Slow vital capacity: 46 % of predicted at 2.40 L Expiratory reserve volume: 48 % of predicted at 0.68 L Diffusion capacity: Mildly decreased, corrects to normal after adjustment for alveolar ventilation. Impression: Very severe obstructive ventilatory defect with positive bronchodilator response. Increased residual volume suggests air trapping. Decreased expiratory reserve volume suggests extrathoracic restriction likely secondary to abdominal obesity. Decreased diffusion capacity suggests emphysema. MTDD
[2024-11-09 11:42] VITALS: PULSE 76
--- OUTSIDE RECORDS SUMMARY | 2024-11-09 12:59 | XMS_ITS | Clinical Summary ---
Author Organization [employer] Address [address] [place] [address] Care Team Providers Care General Sales Manager Name Role Phone Atul Ferreira MD Primary Care Provider [phone] Allergies No known active allergies Medications albuterol [...] series ) 2024 Insurance [employer] Care Teams General Sales Manager Relationship Specialty Start Date End Date Atul Ferreira MD [address] [place] [address] [place] [address] PCP - General Internal Medicine 10/23/21
== END 2024-11-09 10:55 | disposition home or self-care (01) ==
LOC: HO.RESP 10:54
PROVIDERS: PCP Internal Medicine; Visit Provider Nurse Practitioner Family
DX: J44.9 Chronic obstructive pulmonary disease, unspecified (principal)
CPT/HCPCS: 94010; 94640; 94727; 94729

== ENCOUNTER → 2024-11-09 10:56 | Outpatient (BNV) | payer OTHER, SELFPAY | PROVIDERS: PCP Internal Medicine; Visit Provider Internal Medicine Pulmonary Disease | DX: J44.9 Chronic obstructive pulmonary disease, unspecified (principal) | CPT/HCPCS: 94060; 94727; 94729 ==

== ENCOUNTER 2024-11-10 15:10 | Outpatient (REF) | payer OTHER, SELFPAY ==
--- NOTE | ~2024-11-10 | CT_ITS ---
CLINICAL HISTORY: F17.210 - Nicotine dependence, cigarettes, uncomplicated CT chest without contrast Comparison: None Findings: The heart size is normal. The visualized thyroid and mediastinum are unremarkable. 3 mm right upper lobe nodule on image 75. 4 mm left lower lobe nodule on image 88. Bandlike focus of atelectasis or scarring within the left upper lobe. No consolidation or pleural effusion. The upper abdomen is unremarkable. The bones are intact. IMPRESSION: There are a couple of tiny lung nodules, the larger measuring 4 mm in size. Consider CT follow-up in 1 year. This document has been electronically signed by: Sylvia Gaviria MD on 11/10/2024 16:09:19
--- OUTSIDE RECORDS SUMMARY | 2024-11-10 17:12 | XMS_ITS | Clinical Summary ---
Author Organization [employer] Address [address] [place] [address] Care Team Providers Care Technical Service Engineer Name Role Phone Atul Ferreira MD Primary Care Provider [phone] Allergies No known active allergies Medications albuterol [...] series ) 2024 Insurance [employer] Care Teams Technical Service Engineer Relationship Specialty Start Date End Date Atul Ferreira MD [address] [place] [address] [place] [address] PCP - General Internal Medicine 10/23/21
== END 2024-11-10 15:11 | disposition home or self-care (01) ==
LOC: HO.CT 15:10
PROVIDERS: PCP Internal Medicine; Visit Provider Nurse Practitioner Family
DX: F17.210 Nicotine dependence, cigarettes, uncomplicated (principal)
CPT/HCPCS: 71250

== ENCOUNTER → 2024-11-10 15:12 | Outpatient (BNV) | payer OTHER, SELFPAY | PROVIDERS: PCP Internal Medicine; Visit Provider Radiology Diagnostic Radiology | DX: R91.1 Solitary pulmonary nodule (principal) | CPT/HCPCS: 71250 ==

== ENCOUNTER 2024-12-08 10:14 | Outpatient (AMB) | payer OTHER, SELFPAY ==
--- NOTE | 2024-12-08 10:16 | A.OFFVIS_ITS ---
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: No Economics Department Chair: Economics Department Chair offered & declined Accompanied by: Self / Same As Patient Allergies amoxicillin Allergy (Intermediate, Verified 12/08/24 10:22) Hives budesonide [From Symbicort] Allergy (Intermediate, Verified 12/08/24 10:22) Hives formoterol [From Symbicort] Allergy (Intermediate, Verified 12/08/24 10:22) Hives Medication List - Last Reconciled 12/08/24 by Amy Rodriguez LPN albuterol sulfate 90 mcg/actuation 2 puffs inhalation Q6H PRN aspirin 81 mg PO Q48H diltiazem HCl ER (Tiadylt ER) 360 mg PO DAILY flecainide 50 mg PO BID fluticasone furoate-vilanterol 200-25 mcg/dose (Breo Ellipta) 1 inh inhalation DAILY furosemide 20 mg PO DAILY gabapentin 100 mg PO BID lisinopril 10 mg PO DAILY HPI HPI Hypoxia: Details: Lux is a pleasant 59 year old male, current 1/ ppd smoker, with 20 pyh with underlying atrial fibrillation and HTN. He was admitted to [facility] 09/22-09/27 for acute respiratory failure with hypoxia secondary to RSV. He was treated with IV abx, IV steroids, nebs and discharged on 4L supplemental oxygen with exertion, 2L at rest. He has a concentrator at home and portable tanks. Previously we discussed using 2L with exertion however he arrived today without supplemental oxygen, satting 93% on room air. He reports moderate control with Breo and albuterol MDI PRN. Today he presents to review chest CT and PFT results. He does note increasing dyspnea, wheezing and intermittent chest congestion with productive cough, tenacious clear sputum. Of note, prior home sleep study in 05/2024 revealed mild JEANINE with significant nocturnal hypoxemia, <88% for 444 minutes and he reports inconsistent use of 3L nocturnal supplemental oxygen. He is not interested in CPAP therapy. He denies any visits to urgent care or hospitalizations since the last visit related to respiratory distress. [facility] Medical History Essential hypertension longterm current use of antiarrhythmic drug Paroxysmal atrial flutter PAF (paroxysmal atrial fibrillation) Surgical History History of colonoscopy (~09/26/15) History of cardioversion (~2015) Family History Father No problems noted. Mother COPD (chronic obstructive pulmonary disease) Social History (Updated 12/08/24 @ 10:24 by Amy Rodriguez LPN) Household Members: Spouse Housing: Apartment Do you presently have visiting nurse or other home services: No Alcohol intake: current Alcohol intake frequency: a few times a month Alcohol type: beer Patient Tobacco Use Status: Current everyday Tobacco user Tobacco use type: Cigarette Cigarette Packs Per Day: 0.5 Cigarettes Per Day: 6 Years Smoked: 40 e-Cigarette/Vaping Use: Never Used Second Hand Smoke Exposure: No service: No Current occupational status: employed Cognitive needs: No Hearing needs: No Vision needs: No Review of Systems Const Denies chills, Denies excessive sweating, Denies fever(s), Denies headache(s) and Denies night sweats Eyes Denies dry eyes, Denies irritation and Denies itchy eyes ENT Reports Normal hearing present, Denies headache(s), Denies nasal congestion, Denies nasal discharge, Denies post nasal drip and Denies sore throat Card Denies chest pain, Denies chest pain at rest, Denies chest pain with activity, Denies claudication, Denies leg edema, Reports dyspnea on exertion, Denies orthopnea and Denies paroxysmal nocturnal dyspnea Resp Reports chest congestion, Reports cough, Denies hemoptysis, Denies excessive phlegm production, Denies pain on inspiration, Denies pain with cough, Reports dyspnea on exertion, Denies stridor and Reports wheezing Musc Denies myalgias Neuro Reports Normal hearing present and Denies headache(s) Endo Denies excessive sweating Stan/Lymph Denies lymphadenopathy Aller/Immun Denies itchy eyes, Denies seasonal rhinorrhea and Reports wheezing Physical Exam Vital Signs: Last Vital Signs Pulse 77 12/08/24 10:18 BP 140/70 H 12/08/24 10:18 Pulse Ox 93 12/08/24 10:18 Oxygen Delivery Method Room Air 12/08/24 10:18 BMI result Body Mass Index 42.3 Const General: cooperative, healthy appearing, comfortable, no acute distress, well developed and alert Nutritional Appearance: obese Orientation/consciousness: patient oriented x3 Limitations: no limitations HEENT Head: Yes normal to inspection, Yes normocephalic and Yes atraumatic Ears: hearing grossly normal bilaterally and external ears normal Eyes General: appearance normal, both eyes and all related structures Eyelids: Yes eyelids normal Sclerae: sclerae normal EOM: EOMs intact bilaterally Neck Neck: Yes normal visual inspection and Yes no lymphadenopathy Lymphatic: no lymphadenopathy noted Chest Chest palpation & inspection: normal inspection of the chest Resp Effort & Inspection: normal respiratory effort, able to speak in complete sentences, no audible wheezes, no cough, no stridor, not tachypneic, no tripod positioning, no use of accessory muscles and prolonged expiratory phase Auscultation: rhonchi and wheezes Cardio Jugular venous distension: no JVD Rate: regular rate Rhythm: regular rhythm Skin Other: warm, dry General skin exam: no rashes or lesions noted Neuro General: patient oriented x3 Cranial nerves: Yes Normal hearing present Cognition (Neuro): normal cognition Gait exam (Neuro): Normal gait present Extrem General: Yes normal to inspection, Yes capillary refill normal, Yes no clubbing, cyanosis or edema and Yes no pedal edema Psych Appearance: grossly normal and well kempt Speech and movement: Normal speech and movement present and Clear speech present Affect: normal affect Attitude: cooperative Thought process: Normal thought process present Thought content: Normal thought content present Insight: Good insight present (Psych) Judgement: Good judgement present (Psych) Office Procedures Nebulizer Treatment Nebulizer Treatment 96862-Ohadfbess/MDI RX initial, or Nebulizer Subsequent Treatment Office Meds ipratropium 0.5 mg-albuterol 3 mg (2.5 mg base)/3 mL nebulization ann Performing Provider: Danica Higginbotham NP Performing Location: [facility] Pulmonology Services-[facility] Administered by: Amy Rodriguez LPN on 12/08/24 11:19 Dose Route Admin Location Dispensed Lot Number Expiration Date [facility] [employer] Normalizer 3 mL inhalation 3 mL [id number] 04/24/26 01776-379-33 [employer] Assessment & Plan Assessment & Plan (1) COPD (chronic obstructive pulmonary disease): Code(s): J44.9 - Chronic obstructive pulmonary disease, unspecified Category: Medical (2) Nicotine dependence, cigarettes, uncomplicated: Code(s): F17.210 - Nicotine dependence, cigarettes, uncomplicated Category: Medical (3) History of acute respiratory failure: Code(s): Z87.09 - Personal history of other diseases of the respiratory system Category: Medical (4) Nocturnal hypoxemia: Code(s): G47.34 - Idiopathic sleep related nonobstructive alveolar hypoventilation Category: Medical Plan Will treat bronchitic symptoms with doxycycline and prednisone. Minimal improvement with nebulizer. Patient aware to call if symptoms do not improve. Will switch Breo to Trelegy. Reviewed PFT which revealed very severe obstructive ventilatory defect with positive bronchodilator response. Increased residual volume suggests air trapping. Decreased expiratory reserve volume suggests extrathoracic restriction likely secondary to abdominal obesity. Decreased diffusion capacity suggests emphysema. Reviewed chest CT which revealed stable pulmonary nodules, will repeat in one year to assess stability via the lung screening program. Discussed importance of supplemental oxygen and need for 2L with exertion and 3L NOC. Reviewed adverse effects of hypoxia. Previously 2L supplemental oxygen was not sufficient and was increased to 3L NOC. Will repeat overnight oximetry to ensure resolution of hypoxia. Will schedule 6MWT in the [place] location to determine appropriate liter flow. Smoking cessation reviewed, patient slowly working towards quitting. All questions were answered and patient is in agreement of plan. Will follow up in 6-8 weeks or sooner if needed. Orders: Orders AMB Nebulizer Treatment Today J44.9 - Chronic obstructive pulmonary disease, unspecified CT lung screening Today F17.210 - Nicotine dependence, cigarettes, uncomplicated Medications: New doxycycline hyclate 100 mg PO BID 14 caps 0RF ytznktkohig-itysxvyzd-chugjdgx 200-62.5-25 mcg (Trelegy Ellipta) 1 inh inhalation DAILY 60 ea 3RF prednisone see taper instructions; 40 mg Daily x3 days, 30 mg daily x3 days, 20 mg daily x3 days, 10 mg daily x3 days 10 mg PO DIRECTED 30 tabs 0RF Discontinued fluticasone furoate-vilanterol 200-25 mcg/dose (Breo Ellipta) Discontinued Reason: Patient Completed Course 1 inh inhalation DAILY 60 ea 3RF Coding Level of Care Code Est Pt Level 4 (12521) Complex EM visit Add On G2211 Diagnoses COPD (chronic obstructive pulmonary disease) J44.9 Nicotine dependence, cigarettes, uncomplicated F17.210 History of acute respiratory failure Z87.09 Nocturnal hypoxemia G47.34 CPT Codes Nebulizer Treatment - Nebulizer Treatment, initial or subsequent: 93554- Nebulizer/MDI RX initial, or Nebulizer Subsequent Treatment ([id number])
[2024-12-08 10:18] VITALS: BP 140/70; PULSE 77; O2SAT 93; BMI 42.3
--- OUTSIDE RECORDS SUMMARY | 2024-12-08 11:50 | XMS_ITS | Clinical Summary ---
Author Organization [employer] Address [address] [place] [address] Care Team Providers Care Postdoctoral Fellow Name Role Phone Atul Ferreira MD Primary Care Provider [phone] Allergies No known active allergies Medications albuterol [...] COVID-19 Vaccine (1 - 2023- season) 2024 RSV Vaccine (SCDM) (1 - Risk 60-74 years 1-dose series ) 2024 Influenza Vaccine (Season Ended) 2025 Insurance [employer] Care Teams Postdoctoral Fellow Relationship Specialty Start Date End Date Atul Ferreira MD [address] [place] [address] [place] [address] PCP - General Internal Medicine 10/23/21
== END 2024-12-08 10:59 | disposition home or self-care (01) ==
PROVIDERS: PCP Internal Medicine; Visit Provider Nurse Practitioner Family
DX: J44.9 Chronic obstructive pulmonary disease, unspecified (principal); F17.210 Nicotine dependence, cigarettes, uncomplicated; Z87.09 Personal history of other diseases of the respiratory system; G47.34 Idiopathic sleep related nonobstructive alveolar hypoventilation
CPT/HCPCS: 99214

== ENCOUNTER → 2024-12-08 10:14 | Outpatient (BNVA) | payer OTHER, SELFPAY | PROVIDERS: PCP Internal Medicine; Visit Provider Nurse Practitioner Family | DX: J44.9 Chronic obstructive pulmonary disease, unspecified (principal); G47.33 Obstructive sleep apnea (adult) (pediatric); G47.34 Idiopathic sleep related nonobstructive alveolar hypoventilation; F17.210 Nicotine dependence, cigarettes, uncomplicated; Z87.09 Personal history of other diseases of the respiratory system; Z99.81 Dependence on supplemental oxygen | CPT/HCPCS: 94640 ==

== ENCOUNTER → 2024-12-16 09:53 | Outpatient (BNVA) | payer OTHER, SELFPAY | PROVIDERS: PCP Internal Medicine; Visit Provider Nurse Practitioner Family | DX: J44.9 Chronic obstructive pulmonary disease, unspecified (principal); Z87.09 Personal history of other diseases of the respiratory system | CPT/HCPCS: 94618; 99211 ==

== ENCOUNTER → 2024-12-16 09:53 | Outpatient (AMB) | payer OTHER, SELFPAY ==
--- NOTE | 2024-12-17 15:32 | MHC.OFFVIS ---
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 Mother COPD (chronic obstructive pulmonary disease) Social History (Updated 12/08/24 @ 10:24 by Amy Rodriguez LPN) Household Members: Spouse Housing: Apartment Do you presently have visiting nurse or other home services: No Alcohol intake: current Alcohol intake frequency: a few times a month Alcohol type: beer Patient Tobacco Use Status: Current everyday Tobacco user Tobacco use type: Cigarette Cigarette Packs Per Day: 0.5 Cigarettes Per Day: 6 Years Smoked: 40 e-Cigarette/Vaping Use: Never Used Second Hand Smoke Exposure: No service: No Current occupational status: employed Cognitive needs: No Hearing needs: No Vision needs: No Office Procedures 6 Minute Walk Time:: 10:10 SPO2 % at rest: 97 Pulse at rest: 69 SPO2 % during excercise: 91 Pulse during excercise: 114 SPO2 % after excercise: 96 Pulse after excercise: 69 Distance in yards walked: 750 Adele Score: 5 Performance Observations:: Patient walked on level ground unassisted at a moderate pace. Patient maintained O2 saturation of 91% or greater with pulse rate of 114 or less for the entirety of the walk. No respiratory distress. Patient did not require the use of supplemental oxygen. [address] - 6 Minute Walk Assessment & Plan Assessment & Plan (1) COPD (chronic obstructive pulmonary disease): Code(s): J44.9 - Chronic obstructive pulmonary disease, unspecified Category: Medical (2) History of acute respiratory failure: Code(s): Z87.09 - Personal history of other diseases of the respiratory system Category: Medical Plan nurse visit only Orders: Orders AMB 6 minute walk 12/16/24 J44.9 - Chronic obstructive pulmonary disease, unspecified, J96.90 - Respiratory failure, unspecified, unspecified whether with hypoxia or hypercapnia, R06.00 - Dyspnea, unspecified Coding Level of Care Code Est Pt Level 1 (59094) Diagnoses COPD (chronic obstructive pulmonary disease) J44.9 History of acute respiratory failure Z87.09 CPT Codes Coding ([id number])
[2024-12-17 15:38] VITALS: PULSE 69; O2SAT 97
== END ==
LOC: HO.HPS 09:54
PROVIDERS: PCP Internal Medicine; Visit Provider Nurse Practitioner Family
DX: J44.9 Chronic obstructive pulmonary disease, unspecified (principal); Z87.09 Personal history of other diseases of the respiratory system

== ENCOUNTER 2025-02-02 10:55 | Outpatient (AMB) | payer OTHER, SELFPAY ==
[2025-02-02 10:57] VITALS: BP 152/74; PULSE 75; O2SAT 95; BMI 43.9
--- NOTE | 2025-02-02 10:57 | A.OFFVIS_ITS ---
Vital Signs 02/02/25 10:57 Height 5 ft 11 in Weight 315 lb BMI 43.9 BP 152/74 H Blood Pressure Location Rt brachial Position Sitting Pulse 75 Pulse Source Pulse Oximeter Pulse Oximetry (%) 95 Oxygen Delivery Method Room Air Intake Visit Reasons: Hypoxia Allergies amoxicillin Allergy (Intermediate, Verified 02/02/25 11:00) Hives budesonide [From Symbicort] Allergy (Intermediate, Verified 02/02/25 11:00) Hives formoterol [From Symbicort] Allergy (Intermediate, Verified 02/02/25 11:00) Hives HPI HPI Hypoxia: Details: Lux is a pleasant 59 year old male, current 1/2 ppd smoker, with 20 pyh with underlying very severe COPD, atrial fibrillation, HTN, h/o acute respiratory failure with hypoxia 09/2024 and mild JEANINE with significant nocturnal hypoxemia not interested in CPAP. He was admitted to [facility] 09/22-09/27 for acute respiratory failure with hypoxia secondary to RSV, initially requiring 2L of supplemental oxygen at rest, 4L with exertion. 6MWT performed November 2024, patient no longer requires supplemental oxygen with exertion. Prior home sleep study in 05/2024 revealed mild JEANINE with significant nocturnal hypoxemia, <88% for 444 minutes, previously using 3L nocturnal supplemental oxygen intermittently. He is awaiting overnight oximetry, recently received call to schedule. At the last visit, he was started on Trelegy with moderate control of repiratory symptoms. He reports occasional dyspnea and dry cough. Denies wheezing or chest tightness. He denies any visits to urgent care or hospitalizations since the last visit related to respiratory distress. 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 Mother COPD (chronic obstructive pulmonary disease) Social History Household Members: Spouse Housing: Apartment Do you presently have visiting nurse or other home services: No Alcohol intake: current Alcohol intake frequency: a few times a month Alcohol type: beer Patient Tobacco Use Status: Current everyday Tobacco user Tobacco use type: Cigarette Cigarette Packs Per Day: 0.5 Cigarettes Per Day: 6 Years Smoked: 40 e-Cigarette/Vaping Use: Never Used Second Hand Smoke Exposure: No service: No Current occupational status: employed Cognitive needs: No Hearing needs: No Vision needs: No Review of Systems Const Denies chills, Denies excessive sweating, Denies fever(s), Denies headache(s) and Denies night sweats Eyes Denies dry eyes, Denies irritation and Denies itchy eyes ENT Reports Normal hearing present, Denies headache(s), Denies nasal congestion, Denies nasal discharge, Denies post nasal drip and Denies sore throat Card Denies chest pain, Denies chest pain at rest, Denies chest pain with activity, Denies claudication, Denies leg edema, Denies orthopnea and Denies paroxysmal nocturnal dyspnea Resp Denies chest congestion, Denies excessive phlegm production, Denies pain on inspiration, Denies pain with cough, Denies stridor and Denies wheezing Musc Denies myalgias Neuro Reports Normal hearing present and Denies headache(s) Endo Denies excessive sweating Stan/Lymph Denies lymphadenopathy Aller/Immun Denies itchy eyes, Denies seasonal rhinorrhea and Denies wheezing Physical Exam Vital Signs: Last Vital Signs Pulse 75 02/02/25 10:57 BP 152/74 H 02/02/25 10:57 Pulse Ox 95 02/02/25 10:57 Oxygen Delivery Method Room Air 02/02/25 10:57 BMI result Body Mass Index 43.9 Const General: cooperative, healthy appearing, comfortable, no acute distress, well developed and alert Nutritional Appearance: obese Orientation/consciousness: patient oriented x3 Limitations: no limitations HEENT Head: Yes normal to inspection, Yes normocephalic and Yes atraumatic Ears: hearing grossly normal bilaterally and external ears normal Eyes General: appearance normal, both eyes and all related structures Eyelids: Yes eyelids normal Sclerae: sclerae normal EOM: EOMs intact bilaterally Neck Neck: Yes normal visual inspection and Yes no lymphadenopathy Lymphatic: no lymphadenopathy noted Chest Chest palpation & inspection: normal inspection of the chest Resp Other: significantly diminished aeration, improved with DuoNeb Effort & Inspection: normal respiratory effort, able to speak in complete sentences, no audible wheezes, no cough, no stridor, not tachypneic, no tripod positioning and no use of accessory muscles Cardio Jugular venous distension: no JVD Rate: regular rate Rhythm: regular rhythm Skin Other: warm, dry General skin exam: no rashes or lesions noted Neuro General: patient oriented x3 Cranial nerves: Yes Normal hearing present Cognition (Neuro): normal cognition Gait exam (Neuro): Normal gait present Extrem General: Yes normal to inspection, Yes capillary refill normal, Yes no clubbing, cyanosis or edema and Yes no pedal edema Psych Appearance: grossly normal and well kempt Speech and movement: Normal speech and movement present and Clear speech present Affect: normal affect Attitude: cooperative Thought process: Normal thought process present Thought content: Normal thought content present Insight: Good insight present (Psych) Judgement: Good judgement present (Psych) Assessment & Plan Assessment & Plan (1) COPD (chronic obstructive pulmonary disease): Code(s): J44.9 - Chronic obstructive pulmonary disease, unspecified Category: Medical (2) Nicotine dependence, cigarettes, uncomplicated: Code(s): F17.210 - Nicotine dependence, cigarettes, uncomplicated Category: Medical (3) History of acute respiratory failure: Code(s): Z87.09 - Personal history of other diseases of the respiratory system Category: Medical (4) Nocturnal hypoxemia: Code(s): G47.34 - Idiopathic sleep related nonobstructive alveolar hypoventilation Category: Medical Plan At this time, patient reports good control of respiratory symptoms on Trelegy and albuterol MDI. 6MWT performed and patient does not require supplemental oxygen at this time with rest/exertion. He is awaiting overnight oximetry to assess nocturnal hypoxemia, prior home PSG revealed severe nocturnal hypoxemia. Smoking cessation reviewed, patient slowly working towards quitting and now interested in NRT. Will send prescription. All questions were answered and patient is in agreement of plan. Will follow up in 6-8 weeks or sooner if needed. Medications: New nicotine 1 patch transdermal Q24H 14 ea 0RF nicotine 1 patch transdermal DAILY 28 ea 0RF Coding Level of Care Code Est Pt Level 4 (14596) Diagnoses COPD (chronic obstructive pulmonary disease) J44.9 Nicotine dependence, cigarettes, uncomplicated F17.210 History of acute respiratory failure Z87.09 Nocturnal hypoxemia G47.34
--- OUTSIDE RECORDS SUMMARY | 2025-02-02 12:26 | XMS_ITS | Clinical Summary ---
Author Organization [facility] Address [address] [place] [address] Care Team Providers Care Service Crew Leader Name Role Phone Atul Ferreira MD Primary Care Provider [phone] Allergies No known active allergies Medications albuterol [...] (Season Ended) 2025 Insurance [employer] Care Teams Service Crew Leader Relationship Specialty Start Date End Date Atul Ferreira MD [address] [place] [address] [place] [id number] PCP - General Internal Medicine 10/23/21
== END 2025-02-02 11:40 | disposition home or self-care (01) ==
LOC: HO.HPSW 10:55
PROVIDERS: PCP Internal Medicine; Visit Provider Nurse Practitioner Family
DX: J44.9 Chronic obstructive pulmonary disease, unspecified (principal); F17.210 Nicotine dependence, cigarettes, uncomplicated; Z87.09 Personal history of other diseases of the respiratory system; G47.34 Idiopathic sleep related nonobstructive alveolar hypoventilation
CPT/HCPCS: 99214

== ENCOUNTER → 2025-02-02 10:55 | Outpatient (BNVA) | payer OTHER, SELFPAY | PROVIDERS: PCP Internal Medicine; Visit Provider Nurse Practitioner Family | DX: J44.9 Chronic obstructive pulmonary disease, unspecified (principal); G47.34 Idiopathic sleep related nonobstructive alveolar hypoventilation; I48.0 Paroxysmal atrial fibrillation; I48.92 Unspecified atrial flutter; I10 Essential (primary) hypertension; F17.210 Nicotine dependence, cigarettes, uncomplicated; Z87.09 Personal history of other diseases of the respiratory system; Z79.899 Other long term (current) drug therapy | CPT/HCPCS: 94640 ==

== ENCOUNTER 2025-02-28 15:31 | Outpatient (AMB) | payer OTHER, SELFPAY ==
--- NOTE | 2025-02-28 15:34 | MHC.PC.OV ---
Vital Signs 02/28/25 15:42 Height 5 ft 11 in Weight 310 lb BMI 43.2 BP 138/78 Blood Pressure Location Lt brachial Position Sitting Intake Visit Reasons: LAURIE from Dr. Ferreira Evp General Counsel Required: No Accompanied by: Self / Same As Patient Allergies amoxicillin Allergy (Intermediate, Verified 02/28/25 15:55) Hives budesonide (From Symbicort) Allergy (Intermediate, Verified 02/28/25 15:55) Hives formoterol (From Symbicort) Allergy (Intermediate, Verified 02/28/25 15:55) Hives Medication List - Last Reconciled 02/28/25 by Roxana Joel MD albuterol sulfate 90 mcg/actuation 2 puffs inhalation Q6H PRN aspirin 81 mg PO Q48H diltiazem HCl ER (Tiadylt ER) 360 mg PO DAILY flecainide 50 mg (1/2 x 100 mg) PO BID uvxeurwexsw-uohfyynlg-titmhnob 200-62.5-25 mcg (Trelegy Ellipta) 1 inh inhalation DAILY gabapentin 100 mg PO BID lisinopril 10 mg PO DAILY nicotine 1 patch transdermal Q24H nicotine 1 patch transdermal DAILY Tobacco use date assessed: 10/27/24 Dental Screening Dental Screen Date: 02/28/25 Did you have a dental visit in the last 12 months?: No Did you have a dental problem in the last 6 months where you did not have access to dental care?: No Was dental information given to patient?: Patient has dentist HPI HPI Comments History of Present Illness Details This is a 59-year-old male with hypertension, paroxysmal atrial flutter on antiarrhythmics, COPD, morbid obesity and impaired glucose tolerance that comes today for transfer of care from retiring doctor. Blood pressure stable. Atrial flutter is follow by cardiology. COPD is follow by pulmonology and he is dependent on oxygen at home. He is morbidly obese with a BMI of 43.2 and was advised to diet and exercise to reach BMI goal less than 30. Has elevated fasting blood glucose but denies any polyuria, polydipsia or unintentional weight loss. Complains of a rash exacerbated by sweat in inguinal area most likely due to candidal intertrigo. Also complains about bilateral leg swelling and I recommend compression stockings. [facility] Medical History (Updated 02/28/25 @ 20:55 by Roxana Joel MD) Essential hypertension assisted current use of antiarrhythmic drug Paroxysmal atrial flutter PAF (paroxysmal atrial fibrillation) Surgical History History of colonoscopy (~09/26/15) History of cardioversion (~2015) Family History Father No problems noted. Mother COPD (chronic obstructive pulmonary disease) Social History Household Members: Spouse Housing: Apartment Do you presently have visiting nurse or other home services: No Alcohol intake: current Alcohol intake frequency: a few times a month Alcohol type: beer Patient Tobacco Use Status: Current everyday Tobacco user Tobacco use type: Cigarette Cigarette Packs Per Day: 0.5 Cigarettes Per Day: 6 Years Smoked: 40 e-Cigarette/Vaping Use: Never Used Second Hand Smoke Exposure: No service: No Current occupational status: employed Current occupational exposures/hazards: No Cognitive needs: No Hearing needs: No Vision needs: No Questionnaire PHQ-9 Over the last 2 weeks, how often have you been bothered by any of the following problems? 1. Little interest or pleasure in doing things: more than half the days 2. Feeling down, depressed, or hopeless: not at all 3. Trouble falling or staying asleep, or sleeping too much: nearly every day 4. Feeling tired or having little energy: more than half the days 5. Poor appetite or overeating: nearly every day 6. Feeling bad about yourself - or that you are a failure or have let yourself or your family down: not at all 7. Trouble concentrating on things, such as reading the newspaper or watching television: not at all 8. Moving or speaking so slowly that other people could have noticed. Or the opposite - being so fidgety or restless that you have been moving around a lot more than usual: not at all 9. Thoughts that you would be better off or of hurting yourself in some way: not at all Total score: 10 Depression Screening Interpretation: Positive Depression Screening Follow-up: Existing condition and Follow-up Visit Requested Depression Screening Done: Yes 07124 - PHQ-9 Billing: Yes Source: Developed by Drs. Thor Rivera, Winsome Moss, Chad French and colleagues, with an educational cyndi from [employer]. Thrive Questionnaire Date Thrive assessed: 02/28/25 I am a: Patient What is your living situation today?: I have a steady place to live Within the past 12 months, did the food you bought not last and you didn't have the money to get more?: Never true Within the past 12 months, did you worry whether your food would run out before you got money to buy more?: Never true Do you have trouble paying for medicines?: Yes Do you have trouble getting transportation to medical appointments?: No Do you have trouble paying your heating and electricity bill?: No Do you have trouble taking care of your child, family member or friend?: No Do you have trouble with day-to-day activities such as bathing, preparing meals, shopping, managing finances, etc.?: I choose not to answer this question Are you currently unemployed and looking for a job?: Yes Are you interested in more education?: No Please select the resources that you would like help with: None Currently or been in a relationship where the following occur: No concerns reported THRIVE Score: 0 AUDIT C Alcohol Use Questionnaire (AUDIT-C) 1. How often do you have a drink containing alcohol?: 2-3 times a week 2. How many drinks containing alcohol do you have on a typical day when you are drinking?: 3 or 4 3. How often do you have six or more drinks on one occasion?: Less than monthly Total Score: 5 ANUSHKA-7 AMB Questionnaire ANUSHKA-7 Date ANUSHKA - 7 assessed: 02/28/25 Feeling nervous, anxious, or on edge: 0 = Not at all Not being able to stop or control worryin = Not at all Worrying too much about different things: 0 = Not at all Trouble relaxin = Not at all Being so restless that it is hard to sit still: 0 = Not at all Becoming easily annoyed or irritable: 0 = Not at all Feeling afraid as if something awful might happen: 0 = Not at all Total ANUSHKA-7 score (0-4 normal; 5-9 mild; 10-14 moderate; 15-21 severe): 0 Source: Developed by Drs. Thor Rivera, Winsome Moss, Chad French and colleagues, with an educational cyndi from [employer]. ANUSHKA-7 Assessment Billing ANUSHKA-7 Assessment Tool: ANUSHKA-7 Assessment 92846 Review of Systems Const All systems reviewed & are unremarkable except as noted in HPI and below Card Denies chest pain at rest, Denies chest pain with activity, Denies edema, Denies irregular heart rhythm, Denies claudication, Denies dyspnea, Denies dyspnea on exertion, Denies orthopnea, Denies paroxysmal nocturnal dyspnea and Denies slow heart rate Resp Denies cough, Denies dyspnea and Denies dyspnea on exertion GI Denies abdominal pain, Denies change in bowel habits, Denies excessive flatus, Denies nausea and Denies vomiting Neuro Denies behavioral changes and Denies lack of coordination Psych Denies behavioral changes Endo Denies cold intolerance Physical exam (Primary Care) Vital Signs: Last Vital Signs BP 138/78 02/28/25 15:42 BMI result Body Mass Index 43.2 BMI Assessment/Plan discussion: High BMI High, discussed plan: lifestyle, weight reduction, dietary and physical activity Tobacco/Smoking Status: Tobacco use Status Tobacco use date assessed 10/27/24 02/28/25 15:39 Patient Tobacco Use Status Current everyday Tobacco 02/28/25 15:39 Tobacco use type Cigarette 02/28/25 15:39 e-Cigarette/Vaping Use Never Used 02/28/25 15:39 PHQ-9: PHQ-9 Score PHQ-9: Total score 10 02/28/25 16:01 Depression Screening Interpretation: Positive Depression Screening Follow-up: Existing condition and Follow-up Visit Requested Thrive Assessment: Date of Thrive Assessment Date Thrive assessed 02/28/25 02/28/25 15:39 Currently or been in a relationship where the following occur: No concerns reported Resp Effort & Inspection: normal respiratory effort Auscultation: clear to auscultation bilaterally Cardio Jugular venous distension: no JVD Rate: regular rate Rhythm: regular rhythm Heart sounds: S1 normal heart sound present and S2 normal heart sound present Neuro General: no focal motor deficits Extrem General: Yes full ROM Coding Level of Care Code Est Pt Level 4 (74034) Complex EM visit Add On G2211 Diagnoses Paroxysmal atrial flutter I48.92 COPD (chronic obstructive pulmonary disease) J44.9 Candidal intertrigo B37.2 Essential hypertension I10 Impaired glucose tolerance R73.02 Morbid obesity with BMI of 40.0-44.9, adult E66.01; Z68.41 Additional Codes ANUSHKA-7 Assessment Billing - ANUSHKA-7 Assessment Tool: ANUSHKA-7 Assessment 16607 ([id number]) PHQ-9 - 07130 - PHQ-9 Billing: Yes ([id number]) Time Spent (min) 23 Assessment & Plan Assessment & Plan (1) Paroxysmal atrial flutter: Code(s): I48.92 - Unspecified atrial flutter Category: Medical (2) COPD (chronic obstructive pulmonary disease): Code(s): J44.9 - Chronic obstructive pulmonary disease, unspecified Category: Medical (3) Candidal intertrigo: Code(s): B37.2 - Candidiasis of skin and nail Category: Medical (4) Essential hypertension: Code(s): I10 - Essential (primary) hypertension Category: Medical (5) Impaired glucose tolerance: Code(s): R73.02 - Impaired glucose tolerance (oral) Category: Medical (6) Morbid obesity with BMI of 40.0-44.9, adult: Code(s): E66.01 - Morbid (severe) obesity due to excess calories; Z68.41 - Body mass index [BMI] 40.0-44.9, adult Category: Medical Plan Continue current meds. Follow-up with Cardiology and pulmonology. Repeat fasting blood glucose. Start low-carbohydrate diet and exercise as tolerated to decrease BMI to less than 30. Orders: Orders Comprehensive Terrell. Panel Fast 4 Months I48.0 - Paroxysmal atrial fibrillation Lipid Panel 4 Months E78.5 - Hyperlipidemia, unspecified Medications: New nystatin 1 appl topical BID PRN 30 grams 1RF rash 4 weeks B37.2 - Candidiasis of skin and nail
[2025-02-28 15:42] VITALS: BP 138/78; BMI 43.2
--- OUTSIDE RECORDS SUMMARY | 2025-02-28 15:43 | XMS_ITS | Clinical Summary ---
Author Organization [facility] Address [address] [place] [address] Care Team Providers Care Transformer Stock Clerk Name Role Phone Atul Ferreira MD Primary Care Provider [phone] Allergies No known active allergies Medications albuterol [...] 86 08/13/2022 11:02 AM EST Temperature 36.3 C (97.3 F) 08/13/2022 11:02 AM EST Respiratory Rate - - Oxygen Saturation 95% [...] years 1-dose series ) 2024 Influenza Vaccine (#1) 2025 Insurance [employer] Care Teams Transformer Stock Clerk Relationship Specialty Start Date End Date Atul Ferreira MD [address] [place] [address] Dr [place], [place] [id number] PCP - General Internal Medicine 10/23/21
== END 2025-02-28 16:13 | disposition home or self-care (01) ==
LOC: HO.HMCH 15:31
PROVIDERS: PCP Internal Medicine; Visit Provider Internal Medicine
DX: I48.92 Unspecified atrial flutter (principal); J44.9 Chronic obstructive pulmonary disease, unspecified; E66.01 Morbid (severe) obesity due to excess calories; Z68.41 Body mass index [BMI] 40.0-44.9, adult; B37.2 Candidiasis of skin and nail; I10 Essential (primary) hypertension; R73.02 Impaired glucose tolerance (oral)

== ENCOUNTER → 2025-02-28 15:31 | Outpatient (BNVA) | payer OTHER, SELFPAY | PROVIDERS: PCP Internal Medicine; Visit Provider Internal Medicine | DX: I10 Essential (primary) hypertension (principal); J44.9 Chronic obstructive pulmonary disease, unspecified; E66.01 Morbid (severe) obesity due to excess calories; I48.92 Unspecified atrial flutter; B37.2 Candidiasis of skin and nail; R73.02 Impaired glucose tolerance (oral); Z99.81 Dependence on supplemental oxygen; Z68.41 Body mass index [BMI] 40.0-44.9, adult | CPT/HCPCS: 96127 ==

== ENCOUNTER 2025-05-06 09:53 | Outpatient (AMB) | payer OTHER, SELFPAY ==
--- NOTE | 2025-05-06 09:53 | MHC.OFFVIS ---
Vital Signs 05/06/25 09:56 Height 5 ft 11 in Weight 322 lb 4 oz BMI 44.9 BP 138/64 Blood Pressure Location Rt brachial Position Sitting Pulse 66 Pulse Source Pulse Oximeter Pulse Oximetry (%) 94 Oxygen Delivery Method Room Air Intake Visit Reasons: Hypoxia Allergies amoxicillin Allergy (Intermediate, Verified 05/06/25 09:59) Hives budesonide (From Symbicort) Allergy (Intermediate, Verified 05/06/25 09:59) Hives formoterol (From Symbicort) Allergy (Intermediate, Verified 05/06/25 09:59) Hives HPI HPI Hypoxia: Details: Lux is a pleasant 59 year old male, current 20 pack year smoker, with underlying very severe COPD, atrial fibrillation, HTN, h/o acute respiratory failure with hypoxia 09/2024 and mild JEANINE with significant nocturnal hypoxemia not interested in CPAP. Previously he required 4 L supplemental oxygen with exertion after hospitalization for acute respiratory failure with hypoxia secondary to RSV in September 2024. 6MWT performed November 2024, patient no longer requires supplemental oxygen with exertion. He does have an Inogen device however uses infrequently, obtained only for traveling for [facility] use. Prior home sleep study in 05/2024 revealed mild JEANINE with significant nocturnal hypoxemia, <88% for 444 minutes, previously using 3L nocturnal supplemental oxygen intermittently. We had previously discussed CPAP therapy and in lab titration study however patient reluctant to pursue. He has had overnight oximetry performed to assess if 3L of supplemental oxygen at [facility] was sufficient however patient performed test on RA, which revealed continued nocturnal hypoxemia<88% for 2 hrs 42 minutes and <89% 3 hours and 43 minutes. He continues to use 2L supplemental oxygen [facility]. Since the last visit he reports moderate control with the use of Trelegy however increased smoking, reports intermittent cough and occasional dyspnea with exertion. He trialed NRT for approximately 1 month without success increasing from 1/2 ppd to 3/4 ppd. Of note, patient concerned with newly developed night terrors and sleep walking with erratic behaviors on a nightly basis for the past two weeks. He has not discussed with PCP. [facility] Medical History (Updated 05/06/25 @ 13:17 by Danica Higginbotham NP) Essential hypertension long-term current use of antiarrhythmic drug Paroxysmal atrial flutter PAF (paroxysmal atrial fibrillation) Surgical History History of colonoscopy (~09/26/15) History of cardioversion (~2015) Family History Father No problems noted. Mother COPD (chronic obstructive pulmonary disease) Social History (Updated 05/06/25 @ 09:59 by Liz Sheffield CMA) Household Members: Spouse Housing: Apartment Do you presently have visiting nurse or other home services: No Alcohol intake: current Alcohol intake frequency: a few times a month Alcohol type: beer Patient Tobacco Use Status: Current everyday Tobacco user Tobacco use type: Cigarette Cigarette Packs Per Day: 0.75 Cigarettes Per Day: 15 Years Smoked: 40 e-Cigarette/Vaping Use: Never Used Second Hand Smoke Exposure: No service: No Current occupational status: employed Current occupational exposures/hazards: No Cognitive needs: No Hearing needs: No Vision needs: No Review of Systems Const Denies chills, Denies excessive sweating, Denies fever(s), Denies headache(s) and Denies night sweats Eyes Denies dry eyes, Denies irritation and Denies itchy eyes ENT Reports Normal hearing present, Denies headache(s), Denies nasal congestion, Denies nasal discharge, Denies post nasal drip and Denies sore throat Card Denies chest pain, Denies chest pain at rest, Denies chest pain with activity, Denies claudication, Denies leg edema, Reports dyspnea on exertion, Denies orthopnea and Denies paroxysmal nocturnal dyspnea Resp Denies change in phlegm color, Denies chest congestion, Reports cough, Denies hemoptysis, Denies excessive phlegm production, Denies pain on inspiration, Denies pain with cough, Reports dyspnea on exertion, Denies stridor and Denies wheezing Musc Denies myalgias Neuro Reports Normal hearing present and Denies headache(s) Endo Denies excessive sweating Stan/Lymph Denies lymphadenopathy Aller/Immun Denies itchy eyes, Denies seasonal rhinorrhea and Denies wheezing Physical Exam Vital Signs: Last Vital Signs Pulse 66 05/06/25 09:56 BP 138/64 05/06/25 09:56 Pulse Ox 94 05/06/25 09:56 Oxygen Delivery Method Room Air 05/06/25 09:56 BMI result Body Mass Index 44.9 Const General: cooperative, healthy appearing, comfortable, no acute distress, well developed and alert Nutritional Appearance: obese Orientation/consciousness: patient oriented x3 Limitations: no limitations HEENT Head: Yes normal to inspection, Yes normocephalic and Yes atraumatic Ears: hearing grossly normal bilaterally and external ears normal Eyes General: appearance normal, both eyes and all related structures Eyelids: Yes eyelids normal Sclerae: sclerae normal EOM: EOMs intact bilaterally Neck Neck: Yes normal visual inspection and Yes no lymphadenopathy Lymphatic: no lymphadenopathy noted Chest Chest palpation & inspection: normal inspection of the chest Resp Effort & Inspection: normal respiratory effort, able to speak in complete sentences, no audible wheezes, no cough, no stridor, not tachypneic, no tripod positioning and no use of accessory muscles Auscultation: diminished lung sounds Cardio Jugular venous distension: no JVD Rate: regular rate Rhythm: regular rhythm Skin Other: warm, dry General skin exam: no rashes or lesions noted Neuro General: patient oriented x3 Cranial nerves: Yes Normal hearing present Cognition (Neuro): normal cognition Gait exam (Neuro): Normal gait present Extrem General: Yes normal to inspection, Yes capillary refill normal, Yes no clubbing, cyanosis or edema and Yes no pedal edema Psych Appearance: grossly normal and well kempt Speech and movement: Normal speech and movement present and Clear speech present Affect: normal affect Attitude: cooperative Thought process: Normal thought process present Thought content: Normal thought content present Insight: Good insight present (Psych) Judgement: Good judgement present (Psych) Assessment & Plan Assessment & Plan (1) COPD (chronic obstructive pulmonary disease): Code(s): J44.9 - Chronic obstructive pulmonary disease, unspecified Category: Medical (2) Obstructive sleep apnea: Code(s): G47.33 - Obstructive sleep apnea (adult) (pediatric) Category: Medical (3) Nicotine dependence, cigarettes, uncomplicated: Code(s): F17.210 - Nicotine dependence, cigarettes, uncomplicated Category: Medical (4) History of acute respiratory failure: Code(s): Z87.09 - Personal history of other diseases of the respiratory system Category: Medical (5) Nocturnal hypoxemia: Code(s): G47.34 - Idiopathic sleep related nonobstructive alveolar hypoventilation Category: Medical Plan At this time, patient reports good control of respiratory symptoms on Trelegy and albuterol MDI. Reviewed overnight oximetry however performed on room air therefore results continue to reveal significant nocturnal hypoxemia and he has been using 2L supplemental oxygen NOC. He did report new onset night terrors and sleep walking over the last two weeks. Denies any changes to medications or medical history. Advised patient to discuss with PCP however may be related to underlying untreated JEANINE and agreeable to in lab titration study. We also discussed referral to neurology which I will enter to assess for any underlying conditions contributing to new onset of sleep disturbances. Smoking cessation reviewed, patient not ready to quit at this time. All questions were answered and patient is in agreement of plan. Will follow up to review in lab PSG results or sooner if needed. 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
[2025-05-06 09:56] VITALS: BP 138/64; PULSE 66; O2SAT 94; BMI 44.9
--- OUTSIDE RECORDS SUMMARY | 2025-05-06 11:12 | XMS_ITS | Clinical Summary ---
Author Organization [facility] Address [address] [place] [address] Care Team Providers Care Refrigeration Person Name Role Phone Atul Ferreira MD Primary Care Provider [phone] Allergies No known active allergies Medications albuterol [...] 983 Zoster Vaccines (1 of 2) 2014 RSV Vaccine (SCDM) (1 - Risk 60-74 years 1-dose series ) 2024 COVID-19 Vaccine (1 - 2023- season) 2025 Influenza Vaccine (#1) 2025 Insurance [employer] Care Teams Refrigeration Person Relationship Specialty Start Date End Date Atul Ferreira MD [address] [place] [address] Dr [place], RAJWINDER [id number] PCP - General Internal Medicine 10/23/21
== END 2025-05-06 10:20 | disposition home or self-care (01) ==
LOC: HO.HPSW 09:54
PROVIDERS: PCP Internal Medicine; Visit Provider Nurse Practitioner Family
DX: J44.9 Chronic obstructive pulmonary disease, unspecified (principal); G47.33 Obstructive sleep apnea (adult) (pediatric); F17.210 Nicotine dependence, cigarettes, uncomplicated; Z87.09 Personal history of other diseases of the respiratory system; G47.34 Idiopathic sleep related nonobstructive alveolar hypoventilation
CPT/HCPCS: 99214

== ENCOUNTER 2025-05-11 14:23 | Outpatient (AMB) | payer OTHER, SELFPAY ==
--- NOTE | 2025-05-11 14:41 | A.OFFVIS_ITS ---
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 Prior home sleep study in 05/2024 revealed m ild JEANINE with significant nocturnal hypoxemia, <88% for 444 minutes, previously using 3L nocturnal supplemental oxygen intermittently. We had previously discussed CPAP therapy and in lab titration study however patient reluctant to pursue. He has had overnight oximetry performed to assess if 3L of supplemental oxygen at NOC was sufficient however patient performed test on RA, which revealed continued nocturnal hypoxemia<88% for 2 hrs 42 minutes and <89% 3 hours and 43 minutes. He continues to use 2L supplemental oxygen NOC. Since the last visit he reports moderate control with the use of Trelegy however increased smoking, reports intermittent cough and occasional dyspnea with exertion. He trialed NRT for approximately 1 month without success increasing from 1/2 ppd to 3/4 ppd. Of note, patient concerned with newly developed night terrors and sleep walking with erratic behaviors on a nightly basis for the past two weeks. Patient stated head hit his head falling through closet. Allergies amoxicillin Allergy (Intermediate, Verified 05/11/25 14:42) Hives budesonide (From Symbicort) Allergy (Intermediate, Verified 05/11/25 14:42) Hives formoterol (From Symbicort) Allergy (Intermediate, Verified 05/11/25 14:42) Hives HPI Comments Details: 59 year old male is here for a referral of sleep walking and night terrors Jun 17, 2024 HST Mild JEANINE Max was 88% and <88% 444 min on 3 liters of O2. PSG in lab titration is pending per Danica Williamson. 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 Significant Nocturnal hypoxemia 88% 2hours and 48 min and 2 liters of O2 Smoking 1/2 to 3/4 ppd. Denies morning headaches, bruxims, and or balance ro gait issues. He goes to bed at 11pm, wakes up at 6am, he wakes up with night terrors and watches tv all night in his bedroom. No bathroom breaks.He gets up sits at the edge of the bed and walks into the wall or closet, did not sustain any injuries. He started having night terrrors 2 weeks ago and sleep walking he hit his head through the closet while sleep walking. Mmeroy is poor, diet is okay. Social activities are nil, to none since diagnosed with JEANINE. [facility] Medical History Essential hypertension assisted current use of antiarrhythmic drug Paroxysmal atrial flutter PAF (paroxysmal atrial fibrillation) Surgical History History of colonoscopy (~09/26/15) History of cardioversion (~2015) Family History Father No problems noted. Mother COPD (chronic obstructive pulmonary disease) Social History Household Members: Spouse Housing: Apartment Do you presently have visiting nurse or other home services: No Alcohol intake: current Alcohol intake frequency: a few times a month Alcohol type: beer Patient Tobacco Use Status: Current everyday Tobacco user Tobacco use type: Cigarette Cigarette Packs Per Day: 0.75 Cigarettes Per Day: 15 Years Smoked: 40 e-Cigarette/Vaping Use: Never Used Second Hand Smoke Exposure: No service: No Current occupational status: employed Current occupational exposures/hazards: No Cognitive needs: No Hearing needs: No Vision needs: No Review of Systems Neuro Reports Abnormal speech present Physical Exam Vital Signs: Last Vital Signs Pulse 81 05/11/25 14:47 BP 126/78 05/11/25 14:47 Pulse Ox 91 L 05/11/25 14:47 Oxygen Delivery Method Room Air 05/11/25 14:47 BMI result Body Mass Index 44.4 Const General: cooperative, comfortable and no acute distress Nutritional Appearance: obese and other Orientation/consciousness: patient oriented x3 Limitations: no limitations HEENT Head: Yes normocephalic Face and sinus: Yes face symmetric Teeth and gingiva: other (Mallmapti score is 3) Eyes Pupils: Equal, round and reactive pupils present Neck Neck: Yes full ROM Thyroid: asymmetrical Resp Effort & Inspection: normal respiratory effort and able to speak in complete sentences Neuro General: patient oriented x3 and moves all extremities Cranial nerves: Yes Facial sensation intact/muscles of mastication intact, Yes Equal, round and reactive pupils present, Yes Normal accommodation reflex present, Yes Bilaterally intact EOM present, Yes Normal facial strength present, Yes Midline tongue present, Yes Ability to bilaterally rotate head present and Yes Ability to bilaterally elevate shoulders present Cognition (Neuro): normal cognition Speech: Abnormal speech present Gait exam (Neuro): Normal gait present, Assisted gait required and Other gait observations present (uses a cane to ambulate) Motor exam (neuro): 5/5 motor strength present throughout and Normal motor muscle tone present throughout Psych Appearance: grossly normal Mental Status: mental status grossly normal Affect: normal affect Attitude: cooperative Thought process: Normal thought process present and Racing thoughts present Results Reviewed Results Reviewed: 10/2024 PFT Diffusion capacity: Mildly decreased, corrects to normal after adjustment for alveolar ventilation. Impression: Very severe obstructive ventilatory defect with positive bronchodilator response. Increased residual volume suggests air trapping. Decreased expiratory reserve volume suggests extrathoracic restriction likely secondary to abdominal obesity. Decreased diffusion capacity suggests emphysema. Assessment & Plan Assessment & Plan (1) Excessive daytime sleepiness: Code(s): G47.19 - Other hypersomnia Category: Medical (2) Fall against object: Comment: CTScan without IV contrast fall during sleep walking. Code(s): W18.00XA - Striking against unspecified object with subsequent fall, initial encounter Category: Medical (3) Nocturnal hypoxemia: Comment: on 2 liters of o2 on NC / copd Code(s): G47.34 - Idiopathic sleep related nonobstructive alveolar hypoventilation Category: Medical Plan HST reviewed with pt. AHI is 11.8 / hr and oxygen Nadirs to 57% he was stated on 2 liters of O2 on NC due to COPD Anxiety / depression loss of job Wellbutrin 150mg am CTScan for fall during sleep walking r/o bleeds RLS ? pitting edema compression stocking Smoker Wellbutrin 150mg po qam. Labs complete for deficiencies. Pitting Edema to the shins wear compression stocking, elevated the feet. F/u in 3 months Orders: Orders Ferritin 05/11/25 G47.19 - Other hypersomnia, W18.00XA - Striking against unspecified object with subsequent fall, initial encounter Homocysteine 05/11/25 G47.19 - Other hypersomnia, G47.9 - Sleep disorder, unspecified, R53.83 - Other fatigue Vitamin D 25-OH Total 05/11/25 G47.19 - Other hypersomnia Vitamin B6 05/11/25 G47.19 - Other hypersomnia Vitamin B12 and Folate 05/11/25 G47.19 - Other hypersomnia Methylmalonic Acid 05/11/25 G47.19 - Other hypersomnia, G47.9 - Sleep disorder, unspecified, R53.83 - Other fatigue Hemoglobin A1c 05/11/25 G47.19 - Other hypersomnia Vitamin B1 05/11/25 G47.19 - Other hypersomnia TSH reflex Free T4 05/11/25 G47.19 - Other hypersomnia CT head/brain wo IV con 05/11/25 G47.19 - Other hypersomnia Medications: New bupropion HCl XL (Wellbutrin XL) 150 mg PO QAM 30 tabs 4RF Coding Level of Care Code New Pt Level 4 (18654) Diagnoses Excessive daytime sleepiness G47.19 Fall against object W18.00XA Nocturnal hypoxemia G47.34
[2025-05-11 14:47] VITALS: BP 126/78; PULSE 81; O2SAT 91; BMI 44.4
--- OUTSIDE RECORDS SUMMARY | 2025-05-11 18:07 | XMS_ITS | Clinical Summary ---
Author Organization [facility] Address [address] [place] [address] Care Team Providers Care Inkjet Operator Name Role Phone Atul Ferreira MD Primary Care Provider [phone] Allergies No known active allergies Medications albuterol [...] Vaccine (#1) 2025 Insurance [employer] Care Teams Inkjet Operator Relationship Specialty Start Date End Date Atul Ferreira MD [address] [place] [address] Dr [place], [place]ER [id number] PCP - General Internal Medicine 10/23/21
== END 2025-05-11 15:36 | disposition home or self-care (01) ==
LOC: HO.HSMC 14:23
PROVIDERS: PCP Internal Medicine; Visit Provider Physician Assistant Medical
DX: G47.19 Other hypersomnia (principal); W18.00XA Striking against unspecified object with subsequent fall, initial encounter; G47.34 Idiopathic sleep related nonobstructive alveolar hypoventilation
CPT/HCPCS: 99204

== ENCOUNTER 2025-06-27 08:51 | Outpatient (REF) | payer OTHER, SELFPAY ==
--- OUTSIDE RECORDS SUMMARY | 2025-06-27 09:29 | XMS_ITS | Clinical Summary ---
Author Organization [facility] Address [address] [place] [address] Care Team Providers Care Auto Rental Clerk Name Role Phone Atul Ferreira MD Primary Care Provider [phone] Allergies No known active allergies Medications albuterol [...] 1964 Hepatitis C Screening 1964 Sigmoidoscopy 1964 MMR Vaccines (1 of 1 - Stand ron series) 1965 PHQ-9 Depression Screen 1976 Annual Preventive Exam 1982 ANUSHKA-7 Anxiety Screen 1982 DTaP,Tdap,and Td Vaccines (1 - Tdap) 1983 Pneumococcal Vaccine: 50+ Ye ars (1 of 2 - PCV) 1983 Zoster Vaccines (1 of 2) 2014 RSV Vaccine (SCDM) (1 - Risk 60-74 years 1-dose series) 2024 COVID-19 Vaccine (1 - 2023-2 5 season) 2025 Influenza Vaccine (#1) 2025 Hepatitis B Vaccines Aged Out No long er eligible based on patient's age to complete this topic Insurance [employer] Care Teams Auto Rental Clerk Relationship Specialty Start Date End Date Atul Ferreira MD [address] [place] [address] [place] [address] PCP - General Internal Medicine 10/23/21
[2025-06-27 10:36] LABS: Alanine Aminotransferase 34 U/L (0-40); Albumin Level 4.5 g/dL (3.5-5.0); Alkaline Phosphatase 79 U/L (39-117); Anion Gap 10 (12-20); Aspartate Amino Transferase 27 U/L (5-37); Blood Urea Nitrogen 11 mg/dL (9-16); Calcium 9.6 mg/dL (8.4-10.2); Carbon Dioxide 33 mmol/L (22-29); Chloride 100 mmol/L (96-108); Cholesterol 233 mg/dL (<200); Estimated Glomerular Filt Rate > 60; HDL Cholesterol 54 mg/dL (>40); Potassium 4.6 mmol/L (3.3-5.1); Sodium 138 mmol/L (135-145); Total Protein 7.6 g/dL (6.5-8.0); Triglycerides 113 mg/dL (<150)
== END 2025-06-27 08:52 | disposition home or self-care (01) ==
LOC: HO.LAB 08:51
PROVIDERS: PCP Internal Medicine; Visit Provider Internal Medicine
DX: I48.0 Paroxysmal atrial fibrillation (principal); E78.5 Hyperlipidemia, unspecified
CPT/HCPCS: 36415; 80053; 80061

== ENCOUNTER 2025-07-05 08:16 | Outpatient (AMB) | payer OTHER, SELFPAY ==
--- OUTSIDE RECORDS SUMMARY | 2025-07-05 08:21 | XMS_ITS | Clinical Summary ---
Author Organization [facility] Address [address] [place] [address] Care Team Providers Care Test Fixture Assembler Name Role Phone Atul Ferreira MD Primary Care Provider [phone] Allergies No known active allergies Medications albuterol [...] Depression Screen 1976 Annual Preventive Exam 1982 ANSUHKA-7 Anxiety Screen 1982 DTaP,Tdap,and Td Vaccines (1 [...] complete this topic Insurance [employer] Care Teams Test Fixture Assembler Relationship Specialty Start Date End Date Atul Ferreira MD [address] [place] [address] [place] [address] PCP - General Internal Medicine 10/23/21
--- NOTE | 2025-07-05 08:35 | A.OFFPC_ITS ---
Vital Signs 07/05/25 08:36 Height 5 ft 11 in Weight 321 lb 2 oz BMI 44.8 BP 132/66 Blood Pressure Location Lt brachial Position Sitting Pulse 79 Pulse Source Pulse Oximeter Temp 97.3 F Temp Source Temporal Artery Scan Pulse Oximetry (%) 92 Oxygen Delivery Method Room Air Intake Visit Reasons: bp Body Builder Apprentice Required: No Accompanied by: Self / Same As Patient Allergies amoxicillin Allergy (Intermediate, Verified 07/05/25 08:47) Hives budesonide (From Symbicort) Allergy (Intermediate, Verified 07/05/25 08:47) Hives formoterol (From Symbicort) Allergy (Intermediate, Verified 07/05/25 08:47) Hives Medication List - Last Reconciled 07/05/25 by Roxana Joel MD albuterol sulfate 90 mcg/actuation 2 puffs inhalation Q6H PRN aspirin 81 mg PO Q48H bupropion HCl XL (Wellbutrin XL) 150 mg PO QAM diltiazem HCl ER (Tiadylt ER) 360 mg PO DAILY flecainide 50 mg (1/2 x 100 mg) PO BID djhtmcimnbq-xnisfrone-gygyozjv 200-62.5-25 mcg (Trelegy Ellipta) 1 inh inhalation DAILY gabapentin 100 mg PO BID lisinopril 10 mg PO DAILY nicotine 1 patch transdermal Q24H nicotine 1 patch transdermal DAILY nystatin 1 appl topical BID PRN 4 weeks Tobacco use date assessed: 07/05/25 Dental Screening Dental Screen Date: 02/28/25 HPI HPI Comments History of Present Illness Details The patient is a 60-year-old male presenting for chronic disease management and a new complaint of insomnia. He reports an inability to sleep and has a sleep study scheduled with pulmonology on July 08. The patient has a history of atrial flutter, for which he takes flecainide 50 mg. He also has COPD, which he believes is the cause of his shortness of breath. Recent lab work revealed a total cholesterol of 233 mg/dL and an HDL of 54 mg/dL. His [place] risk score is 19.4% for a heart attack or stroke in the next 10 years. The patient also has prediabetes, with a recent glucose level of 118 mg/dL, an improvement from a previous reading of 124 mg/dL. The patient's BMI is 44, indicating morbid obesity, and he reports a 70-pound weight gain over the past year since he stopped working. He is a current smoker, consuming 15 cigarettes per day, and notes that he has increased his smoking recently. A prior attempt to quit using a nicotine patch was unsuccessful. His current medications include a rescue inhaler, aspirin, Wellbutrin 150 mg, diltiazem 360 mg, flecainide 50 mg, Trelegy, gabapentin twice a day, and lisinopril 10 mg. Reported allergies include amoxicillin and Symbicort. 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 Mother COPD (chronic obstructive pulmonary disease) Social History Household Members: Spouse Housing: Apartment Do you presently have visiting nurse or other home services: No Alcohol intake: current Alcohol intake frequency: a few times a month Alcohol type: beer Patient Tobacco Use Status: Current everyday Tobacco user Tobacco use type: Cigarette Cigarette Packs Per Day: 0.75 Cigarettes Per Day: 15 Years Smoked: 40 e-Cigarette/Vaping Use: Never Used Second Hand Smoke Exposure: No service: No Current occupational status: employed Current occupational exposures/hazards: No Cognitive needs: No Hearing needs: No Vision needs: No Questionnaire PHQ-9 Over the last 2 weeks, how often have you been bothered by any of the following problems? 1. Little interest or pleasure in doing things: more than half the days 2. Feeling down, depressed, or hopeless: not at all 3. Trouble falling or staying asleep, or sleeping too much: nearly every day 4. Feeling tired or having little energy: more than half the days 5. Poor appetite or overeating: nearly every day 6. Feeling bad about yourself - or that you are a failure or have let yourself or your family down: not at all 7. Trouble concentrating on things, such as reading the newspaper or watching television: not at all 8. Moving or speaking so slowly that other people could have noticed. Or the opposite - being so fidgety or restless that you have been moving around a lot more than usual: not at all 9. Thoughts that you would be better off or of hurting yourself in some way: not at all Total score: 10 Depression Screening Interpretation: Positive Depression Screening Follow-up: Existing condition and Follow-up Visit Requested Depression Screening Done: Yes 11158 - PHQ-9 Billing: Yes Source: Developed by Drs. Thor Rivera, Winsome Moss, Chad French and colleagues, with an educational cyndi from [employer]. Thrive Questionnaire Date Thrive assessed: 02/28/25 I am a: Patient What is your living situation today?: I have a steady place to live Within the past 12 months, did the food you bought not last and you didn't have the money to get more?: Never true Within the past 12 months, did you worry whether your food would run out before you got money to buy more?: Never true Do you have trouble paying for medicines?: Yes Do you have trouble getting transportation to medical appointments?: No Do you have trouble paying your heating and electricity bill?: No Do you have trouble taking care of your child, family member or friend?: No Do you have trouble with day-to-day activities such as bathing, preparing meals, shopping, managing finances, etc.?: I choose not to answer this question Are you currently unemployed and looking for a job?: Yes Are you interested in more education?: No Please select the resources that you would like help with: None Currently or been in a relationship where the following occur: No concerns reported THRIVE Score: 0 AUDIT C Alcohol Use Questionnaire (AUDIT-C) 1. How often do you have a drink containing alcohol?: 2-4 times a month 2. How many drinks containing alcohol do you have on a typical day when you are drinking?: 1 or 2 3. How often do you have six or more drinks on one occasion?: Never Total Score: 2 Score Reviewed/Action Taken: No ANUSHKA-7 AMB Questionnaire ANUSHKA-7 Date ANUSHKA - 7 assessed: 02/28/25 Feeling nervous, anxious, or on edge: 0 = Not at all Not being able to stop or control worryin = Not at all Worrying too much about different things: 0 = Not at all Trouble relaxin = Not at all Being so restless that it is hard to sit still: 0 = Not at all Becoming easily annoyed or irritable: 0 = Not at all Feeling afraid as if something awful might happen: 0 = Not at all Total ANUSHKA-7 score (0-4 normal; 5-9 mild; 10-14 moderate; 15-21 severe): 0 Source: Developed by Drs. Thor Rivera, Winsome Moss, Chad French and colleagues, with an educational cyndi from [employer]. ANUSHKA-7 Assessment Billing ANUSHKA-7 Assessment Tool: ANUSHKA-7 Assessment 73534 Review of Systems Const All systems reviewed & are unremarkable except as noted in HPI and below Card Denies chest pain at rest, Denies chest pain with activity, Denies edema, Denies irregular heart rhythm, Denies claudication, Denies dyspnea, Denies dyspnea on exertion, Denies orthopnea, Denies paroxysmal nocturnal dyspnea and Denies slow heart rate Resp Denies cough, Denies dyspnea and Denies dyspnea on exertion GI Denies abdominal pain, Denies change in bowel habits, Denies excessive flatus, Denies nausea and Denies vomiting Denies urinary hesitancy, Denies urinary incontinence and Denies urinary urgency Musc Denies atrophy, Denies deformity and Denies limited range of motion Physical exam (Primary Care) Vital Signs: Last Vital Signs Temp 97.3 F 07/05/25 08:36 Pulse 79 07/05/25 08:36 BP 132/66 07/05/25 08:36 Pulse Ox 92 07/05/25 08:36 Oxygen Delivery Method Room Air 07/05/25 08:36 BMI result Body Mass Index 44.8 BMI Assessment/Plan discussion: High BMI High, discussed plan: lifestyle, weight reduction, dietary and physical activity Tobacco/Smoking Status: Tobacco use Status Tobacco use date assessed 07/05/25 07/05/25 08:39 Patient Tobacco Use Status Current everyday Tobacco 07/05/25 08:39 Tobacco use type Cigarette 07/05/25 08:39 e-Cigarette/Vaping Use Never Used 07/05/25 08:39 PHQ-9: PHQ-9 Score PHQ-9: Total score 10 07/05/25 09:02 Depression Screening Interpretation: Positive Depression Screening Follow-up: Existing condition and Follow-up Visit Requested Thrive Assessment: Date of Thrive Assessment Date Thrive assessed 02/28/25 07/05/25 08:39 Currently or been in a relationship where the following occur: No concerns reported Resp Effort & Inspection: normal respiratory effort Auscultation: clear to auscultation bilaterally Cardio Jugular venous distension: no JVD Rate: regular rate Rhythm: regular rhythm Heart sounds: S1 normal heart sound present and S2 normal heart sound present Extrem General: Yes full ROM Immunizations pneumoc 20-onel conj-dip cr(PF) 0.5 mL IM syringe Performing Provider: Roxana Joel MD Performing Location: [facility] Administered by: TIERA Millan on 07/05/25 09:05 Dose Route Admin Location Dispensed Lot Number Expiration Date [facility] Glass Blowing Lathe Operator 0.5 mL IM Right Deltoid 0.5 mL [id number] 04/25/26 [employer]/Stealth10 Total Dispensed Waste 0.5 mL 0 % VIS Given Date VIS Provided VIS Publication Date 07/05/25 Single Vaccine 25 Eligibility Eligibility Date Funding Source Not [facility] Eligible 07/05/25 Private Coding Level of Care Code Est Pt Level 4 (43340) Complex EM visit Add On G2211 Diagnoses Essential hypertension I10 Paroxysmal atrial flutter I48.92 Impaired glucose tolerance R73.02 Morbid obesity with BMI of 40.0-44.9, adult E66.01; Z68.41 COPD (chronic obstructive pulmonary disease) J44.9 Pure hypercholesterolemia E78.00 Additional Codes ANUSHKA-7 Assessment Billing - ANUSHKA-7 Assessment Tool: ANUSHKA-7 Assessment 29661 ([id number]) PHQ-9 - 13928 - PHQ-9 Billing: Yes ([id number]) Time Spent (min) 24 Assessment & Plan Assessment & Plan (1) Essential hypertension: Code(s): I10 - Essential (primary) hypertension Category: Medical (2) Paroxysmal atrial flutter: Code(s): I48.92 - Unspecified atrial flutter Category: Medical (3) Impaired glucose tolerance: Code(s): R73.02 - Impaired glucose tolerance (oral) Category: Medical (4) Morbid obesity with BMI of 40.0-44.9, adult: Code(s): E66.01 - Morbid (severe) obesity due to excess calories; Z68.41 - Body mass index [BMI] 40.0-44.9, adult Category: Medical (5) COPD (chronic obstructive pulmonary disease): Code(s): J44.9 - Chronic obstructive pulmonary disease, unspecified Category: Medical (6) Pure hypercholesterolemia: Code(s): E78.00 - Pure hypercholesterolemia, unspecified Category: Medical Plan Plan 1. Hypercholesterolemia The patient's total cholesterol is elevated at 233 mg/dL. His [place] risk score indicates a 19.4% risk of a heart attack or stroke in the next 10 years, which is significantly elevated and warrants medical intervention. A statin medication will be initiated to be taken at bedtime. Blood work will be repeated in six months to monitor response. 2. Insomnia/Suspected Sleep Apnea The patient reports he cannot sleep. He has a previously scheduled in-lab sleep study on July 08 to further evaluate for sleep apnea. 3. Tobacco Use Disorder The patient continues to smoke 15 cigarettes a day and is not currently ready to quit. He reported a previous trial with a nicotine patch was not helpful. The contribution of smoking to his elevated cardiovascular risk was discussed. 4. Morbid Obesity The patient has a BMI of 44, consistent with morbid obesity. His significant weight gain of 70 pounds in the past year contributes to restrictive lung function and increased shortness of breath. 5. Prediabetes The patient has ongoing prediabetes, though his most recent glucose level of 118 mg/dL showed slight improvement. He denies classic symptoms of diabetes such as polydipsia or unintentional weight loss. Follow-up blood work is planned in six months. 6. Chronic Obstructive Pulmonary Disease The patient has a history of COPD and emphysema, which contributes to his dyspnea. Due to this chronic condition, he will receive a pneumonia vaccine today. Orders: Orders Pneumococcal 20 Immunization Today Z23 - Encounter for immunization Lipid Panel 6 Months E78.5 - Hyperlipidemia, unspecified Comprehensive Adel. Panel Fast 6 Months I10 - Essential (primary) hypertension Medications: New rosuvastatin 20 mg PO BEDTIME 90 tabs 1RF 90 days
[2025-07-05 08:36] VITALS: BP 132/66; PULSE 79; TEMP 36.3; O2SAT 92; BMI 44.8
== END 2025-07-05 09:08 | disposition home or self-care (01) ==
PROVIDERS: PCP Internal Medicine; Visit Provider Internal Medicine
DX: I10 Essential (primary) hypertension (principal); I48.92 Unspecified atrial flutter; R73.02 Impaired glucose tolerance (oral); E66.01 Morbid (severe) obesity due to excess calories; Z68.41 Body mass index [BMI] 40.0-44.9, adult; J44.9 Chronic obstructive pulmonary disease, unspecified; E78.00 Pure hypercholesterolemia, unspecified; Z23 Encounter for immunization

== ENCOUNTER → 2025-07-05 08:16 | Outpatient (BNVA) | payer OTHER, SELFPAY | PROVIDERS: PCP Internal Medicine; Visit Provider Internal Medicine | DX: Z23 Encounter for immunization (principal); I48.92 Unspecified atrial flutter; I10 Essential (primary) hypertension; R73.02 Impaired glucose tolerance (oral); E66.01 Morbid (severe) obesity due to excess calories; J44.9 Chronic obstructive pulmonary disease, unspecified; E78.00 Pure hypercholesterolemia, unspecified; Z68.41 Body mass index [BMI] 40.0-44.9, adult | CPT/HCPCS: 90471; 90677; 96127 ==

== ENCOUNTER → 2025-07-08 20:00 | Outpatient (REF) | payer OTHER, SELFPAY | LOC: HO.SL 20:00 | PROVIDERS: PCP Internal Medicine; Visit Provider Nurse Practitioner Family | DX: G47.34 Idiopathic sleep related nonobstructive alveolar hypoventilation (principal); G47.19 Other hypersomnia; F51.3 Sleepwalking [somnambulism] | CPT/HCPCS: 95810 ==

== ENCOUNTER → 2025-07-08 22:09 | Outpatient (BNV) | payer OTHER, SELFPAY | PROVIDERS: PCP Internal Medicine; Visit Provider Internal Medicine | DX: G47.33 Obstructive sleep apnea (adult) (pediatric) (principal); G47.61 Periodic limb movement disorder | CPT/HCPCS: 95810 ==

== ENCOUNTER 2025-07-15 10:06 | Outpatient (AMB) | payer OTHER, SELFPAY ==
[2025-07-15 10:11] VITALS: BP 132/78; PULSE 80; O2SAT 96; BMI 45.4
--- NOTE | 2025-07-15 10:11 | MHC.OFFVIS ---
Vital Signs 07/15/25 10:11 Height 5 ft 11 in Weight 325 lb 4 oz BMI 45.4 BP 132/78 Blood Pressure Location Rt brachial Position Sitting Pulse 80 Pulse Source Pulse Oximeter Pulse Oximetry (%) 96 Oxygen Delivery Method Room Air Intake Visit Reasons: Hypoxia Allergies amoxicillin Allergy (Intermediate, Verified 07/15/25 10:15) Hives budesonide (From Symbicort) Allergy (Intermediate, Verified 07/15/25 10:15) Hives formoterol (From Symbicort) Allergy (Intermediate, Verified 07/15/25 10:15) Hives HPI HPI Hypoxia: Details: Lux is a pleasant 60 year old male, current 20 pack year smoker, with underlying very severe COPD, atrial fibrillation, HTN, h/o acute respiratory failure with hypoxia 09/2024 and mild JEANINE with significant nocturnal hypoxemia not interested in CPAP. Previously he required 4 L supplemental oxygen with exertion after hospitalization for acute respiratory failure with hypoxia secondary to RSV in September 2024. 6MWT performed November 2024, patient no longer requires supplemental oxygen with exertion. He does have an [employer] device however uses infrequently, obtained only for traveling for [employer] use. Prior home sleep study in 05/2024 revealed mild JEANINE with significant nocturnal hypoxemia, <88% for 444 minutes, for which he uses 3L nocturnal supplemental oxygen. We had previously discussed CPAP therapy and in lab titration study however patient reluctant to pursue. At the last visit he was agreeable to a repeat PSG which was performed 07/13/25 and presents to review results. Of note, patient has been experiencing sleep disturbances characterized by erratic sleepwalking and night terrors, which have been distressing. He had consultation with neurology and has upcoming brain CT to further assess. He continues to report moderate control with Trelegy, continues with intermittent cough and dyspnea on exertion, unfortunately continues to smoke. Denies any symptoms suggestive of an infectious process at this time. [facility] Medical History Essential hypertension assisted current use of antiarrhythmic drug Paroxysmal atrial flutter PAF (paroxysmal atrial fibrillation) Surgical History History of colonoscopy (~09/26/15) History of cardioversion (~2015) Family History Father No problems noted. Mother COPD (chronic obstructive pulmonary disease) Social History Household Members: Spouse Housing: Apartment Do you presently have visiting nurse or other home services: No Alcohol intake: current Alcohol intake frequency: a few times a month Alcohol type: beer Patient Tobacco Use Status: Current everyday Tobacco user Tobacco use type: Cigarette Cigarette Packs Per Day: 0.75 Cigarettes Per Day: 15 Years Smoked: 40 e-Cigarette/Vaping Use: Never Used Second Hand Smoke Exposure: No service: No Current occupational status: employed Current occupational exposures/hazards: No Cognitive needs: No Hearing needs: No Vision needs: No Review of Systems Const Denies chills, Denies excessive sweating, Denies fever(s), Denies headache(s) and Denies night sweats Eyes Denies dry eyes, Denies irritation and Denies itchy eyes ENT Reports Normal hearing present, Denies headache(s), Denies nasal congestion, Denies nasal discharge, Denies post nasal drip and Denies sore throat Card Denies chest pain, Denies chest pain at rest, Denies chest pain with activity, Denies claudication, Denies leg edema, Reports dyspnea on exertion, Denies orthopnea and Denies paroxysmal nocturnal dyspnea Resp Denies change in phlegm color, Denies chest congestion, Reports cough, Denies hemoptysis, Denies excessive phlegm production, Denies pain on inspiration, Denies pain with cough, Reports dyspnea on exertion, Denies stridor and Denies wheezing Musc Denies myalgias Neuro Reports Normal hearing present and Denies headache(s) Endo Denies excessive sweating Stan/Lymph Denies lymphadenopathy Aller/Immun Denies itchy eyes, Denies seasonal rhinorrhea and Denies wheezing Physical Exam Vital Signs: Last Vital Signs Pulse 80 07/15/25 10:11 BP 132/78 07/15/25 10:11 Pulse Ox 96 07/15/25 10:11 Oxygen Delivery Method Room Air 07/15/25 10:11 BMI result Body Mass Index 45.4 Const General: cooperative, healthy appearing, comfortable, no acute distress, well developed and alert Nutritional Appearance: obese Orientation/consciousness: patient oriented x3 Limitations: no limitations HEENT Head: Yes normal to inspection, Yes normocephalic and Yes atraumatic Ears: hearing grossly normal bilaterally and external ears normal Eyes General: appearance normal, both eyes and all related structures Eyelids: Yes eyelids normal Sclerae: sclerae normal EOM: EOMs intact bilaterally Neck Neck: Yes normal visual inspection and Yes no lymphadenopathy Lymphatic: no lymphadenopathy noted Chest Chest palpation & inspection: normal inspection of the chest Resp Effort & Inspection: normal respiratory effort, able to speak in complete sentences, no audible wheezes, no cough, no stridor, not tachypneic, no tripod positioning and no use of accessory muscles Auscultation: diminished lung sounds Cardio Jugular venous distension: no JVD Rate: regular rate Rhythm: regular rhythm Skin Other: warm, dry General skin exam: no rashes or lesions noted Neuro General: patient oriented x3 Cranial nerves: Yes Normal hearing present Cognition (Neuro): normal cognition Gait exam (Neuro): Normal gait present Extrem General: Yes normal to inspection, Yes capillary refill normal, Yes no clubbing, cyanosis or edema and Yes no pedal edema Psych Appearance: grossly normal and well kempt Speech and movement: Normal speech and movement present and Clear speech present Affect: normal affect Attitude: cooperative Thought process: Normal thought process present Thought content: Normal thought content present Insight: Good insight present (Psych) Judgement: Good judgement present (Psych) Assessment & Plan Assessment & Plan (1) COPD (chronic obstructive pulmonary disease): Code(s): J44.9 - Chronic obstructive pulmonary disease, unspecified Category: Medical (2) Obstructive sleep apnea: Code(s): G47.33 - Obstructive sleep apnea (adult) (pediatric) Category: Medical (3) Nicotine dependence, cigarettes, uncomplicated: Code(s): F17.210 - Nicotine dependence, cigarettes, uncomplicated Category: Medical (4) History of acute respiratory failure: Code(s): Z87.09 - Personal history of other diseases of the respiratory system Category: Medical (5) Nocturnal hypoxemia: Comment: on 2 liters of o2 on NC / copd Code(s): G47.34 - Idiopathic sleep related nonobstructive alveolar hypoventilation Category: Medical Plan At this time, patient reports moderate control of respiratory symptoms on Trelegy and albuterol MDI, advised to continue. He is aware to call if symptoms change. Reviewed recent PSG which demonstrated severe JEANINE, AHI 69, nocturnal hypoxemia, average oxygen saturation 89%, lowest 59%, <88% for 51 minutes. During the study he met criteria for a split night study however he refused CPAP therapy at that time and recommendations made for 1-2L supplemental oxygen NOC. Had long discussion with patient the benefits from CPAP therapy given these findings which he was agreeable to. The plan includes starting the patient on CPAP therapy, in APAP mode with pressures [id number] with close monitoring for compliance and benefits. Sleep hygiene education reviewed. He is aware if there are any issues with the mask or CPAP machine, he will call the DME/office. The patient is advised to use 2 liters of oxygen at night until the CPAP machine is available, and to discontinue oxygen use once the CPAP is in use. Once established on CPAP therapy will send for overnight oximetry to ensure resolution of nocturnal hypoxemia. We did discuss the likelihood of needing a titration study to ensure optimal pressures which he is considering. Smoking cessation reviewed, patient not ready to quit at this time. All questions were answered and patient is in agreement of plan. Will follow up in 10-12 weeks or sooner if needed. Coding Level of Care Code Est Pt Level 4 (01574) Complex visit Add On G2211 Diagnoses COPD (chronic obstructive pulmonary disease) J44.9 Obstructive sleep apnea G47.33 Nicotine dependence, cigarettes, uncomplicated F17.210 History of acute respiratory failure Z87.09 Nocturnal hypoxemia G47.34
--- OUTSIDE RECORDS SUMMARY | 2025-07-15 10:44 | XMS_ITS | Clinical Summary ---
Author Organization [facility] Address [address] [place] [address] Care Team Providers Care International Trade Compliance Manager Name Role Phone Atul Ferreira MD Primary Care Provider [phone] Allergies No known active allergies Medications albuterol [...] complete this topic Insurance [employer] Care Teams International Trade Compliance Manager Relationship Specialty Start Date End Date Atul Ferreira MD [address] [place] [address] [place] [address] PCP - General Internal Medicine 10/23/21
== END 2025-07-15 10:41 | disposition home or self-care (01) ==
LOC: HO.HPSW 10:08
PROVIDERS: PCP Internal Medicine; Visit Provider Nurse Practitioner Family
DX: J44.9 Chronic obstructive pulmonary disease, unspecified (principal); G47.33 Obstructive sleep apnea (adult) (pediatric); F17.210 Nicotine dependence, cigarettes, uncomplicated; Z87.09 Personal history of other diseases of the respiratory system; G47.34 Idiopathic sleep related nonobstructive alveolar hypoventilation
CPT/HCPCS: 99214

== ENCOUNTER 2025-08-02 07:26 | Outpatient (REF) | payer OTHER, SELFPAY ==
--- NOTE | ~2025-08-02 | CT_ITS ---
EXAMINATION: CT HEAD WITHOUT IV CONTRAST HISTORY: G47.19 - Other hypersomnia. TECHNIQUE: Unenhanced helical CT of the head was performed per standard departmental protocol. Coronal and sagittal reformats of the head were also evaluated. One or more of the following techniques was used for dose reduction: Automated exposure control, adjustment of the mA and/or kV according to patient size, use of iterative reconstruction technique. DLP: 870 mGy-cm COMPARISON: Comparison is made with the prior examination dated 01/24/2024. FINDINGS: BRAIN: Again seen is possible cerebellar tonsillar ectopia suggestive of Chiari I malformation. The brain parenchyma is otherwise unremarkable. There is normal palumbo/white differentiation. The ventricular system is normal in size and configuration. There is no mass effect or midline shift. No intra- or extra-axial fluid collections are identified. SINUSES: There is mucosal thickening in the ethmoid and maxillary sinuses. The mastoid air cells and middle ear cavities are well pneumatized. ORBITS: The visualized orbits are unremarkable. BONES/SOFT TISSUES: The extracranial soft tissues are unremarkable. The calvarium is intact. No suspicious lytic or sclerotic lesions. CT/CT head/brain wo IV con IMPRESSION: No acute intracranial abnormality. 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 Electronically signed by: Thor Espinoza MD 08/02/2025 08:05 AM [facility] [place]
--- OUTSIDE RECORDS SUMMARY | 2025-08-02 07:29 | XMS_ITS | Clinical Summary ---
Author Organization [facility] Address [address] [place] [address] Care Team Providers Care Attendant Sales Name Role Phone Atul Ferreira MD Primary Care Provider [phone] Allergies No known active allergies Medications albuterol [...] complete this topic Insurance [employer] Care Teams Attendant Sales Relationship Specialty Start Date End Date Atul Ferreira MD [address] [place] [address] [place] [address] PCP - General Internal Medicine 10/23/21
== END 2025-08-02 07:27 | disposition home or self-care (01) ==
LOC: HO.CT 07:26
PROVIDERS: PCP Internal Medicine; Visit Provider Physician Assistant Medical
DX: G47.19 Other hypersomnia (principal)
CPT/HCPCS: 70450

== ENCOUNTER → 2025-08-02 07:28 | Outpatient (BNV) | payer OTHER, SELFPAY | PROVIDERS: PCP Internal Medicine; Visit Provider Radiology Diagnostic Radiology | DX: G47.19 Other hypersomnia (principal) | CPT/HCPCS: 70450 ==